=== PATIENT | female | born 1960 | race Caucasian/White ===

== ENCOUNTER → 2018-01-28 10:27 | Outpatient (REF) | payer MEDICAID, SELFPAY | LOC: LBN 10:27 | PROVIDERS: PCP Family Medicine; Visit Provider Family Medicine | DX: T81.4XXA Infection following a procedure, initial encounter (principal); M65.331 Trigger finger, right middle finger | CPT/HCPCS: 87077; 87070; 87186; 87205 ==

== ENCOUNTER 2018-02-28 11:09 | Day surgery (SDC) | payer MEDICAID, SELFPAY ==
--- NOTE | 2018-02-28 06:59 | W.COLOREPORT ---
Date of service: 02/28/18 Colonoscopy Report Date of procedure: 02/28/18 Pre-op diagnosis general: screening for colon cancer Post-op diagnosis procedure note: other (rectal polyp) Procedure: Colonoscopy with polypectomy by cold forceps Surgeon: Anum Franco Anesthesia proc note operative: MAC (Kristal Cuevas CRNA) Estimated blood loss (mL): 3 Pathology: other (rectal polyp) Complications: None Disposition: same day Indications: Mrs. Gamez is a 58-year-old female who was seen in the office for a screening colonoscopy. Risks benefits and complications were reviewed with her and she wished to proceed no guarantees were given or implied. Prep: Miralax/Dulcolax Procedure Start Time: 13:55 Procedure End Time: 14:31 Retraction Time: 17 minutes Findings: One rectal polyp, most likely benign Prep was suboptimal with lots of debris Procedure Description: After informed consent was obtained the patient was taken to the procedure room and placed in a left decubitous position. Monitors were applied and a time out was done. The patients name, date of , procedure, allergies to medications and metal in their body was reviewed. The patient was then sedated. Once sedated and comfortable a rectal exam was done. External exam was normal. Internal exam revealed a normal sphincter tone and no palpable masses. The scope was then introduced and retroflexed. No internal hemorrhoids were identified. The scope was then straightened and advanced to the cecum without difficulty. The TI and appendiceal orifice were identified. The prep was suboptimal. Over 2 L of fluid was used to irrigate the colon ramires for better visualization. The scope was then slowly retracted over 17 minutes back into the rectum. In the rectum one polyp was removed. The scope was removed and the patient was woken up and taken back to Same day surgery in stable condition. The patient tolerated the procedure well and there were no immediate complications. Follow up: The patient should follow up in 10 years unless they develop changes in bowel habits or other new gastrointestinal complaints.
--- NOTE | 2018-02-28 07:02 | PDOC.DSDIS_ITS ---
Discharge Plan Disposition Patient Disposition: HOME Condition: Fair Discharge Details Reason For Visit: Screening for colon cancer Attending Provider: Anum Franco Primary Care Provider: Tania Shahid Home Meds and New Rx's Prescriptions: Continue albuterol sulfate [Ventolin HFA] 8 GM HFA aerosol inhaler 2 puff Inhalation Q6H PRN Qty: 2 RF: 4 rosuvastatin [Crestor] 10 MG tablet 10 mg PO DAILY Qty: 90 RF: 4 cholecalciferol (vitamin D3) [Vitamin D3] 2,000 UNIT capsule 2,000 unit PO DAILY Qty: 90 RF: 3 calcium carbonate 600 MG tablet 600 mg PO BID Qty: 180 RF: 3 levothyroxine 25 MCG tablet 12.5 mcg PO DAILY Qty: 90 RF: 1 venlafaxine 75 MG tablet 75 mg PO BID Qty: 180 RF: 3 meloxicam [Mobic] 15 MG tablet 15 mg PO DAILY PRNQty: 30 RF: 0 clonazepam [Klonopin] 0.5 MG tablet 1 tab PO BID PRN Qty: 25 RF: 1 loratadine 10 MG tablet 10 mg PO DAILY Qty: 30 RF: 1 oxybutynin chloride 5 MG tablet extended release 24hr 5 mg PO DAILY Qty: 90 RF: 3 Discontinued polyethylene glycol 3350 17 gram powder in packet 255 g PO DAILY Qty: 15 RF: 0 bisacodyl [Dulcolax (bisacodyl)] 5 mg tablet,delayed release (DR/EC) 5 mg PO ONCE Qty: 4 RF: 0 Discharge Instructions Instructions: Colonoscopy (DC), Colorectal Polyps (DC) Additional Instructions: Findings: 1 polyp- most likely benign Follow up: depends on pathology New Medications: none Please call if you develop: Fevers >101.5 Nausea or Vomiting Abdominal pain that is not transient 1. Because there will be medication in your system for the next 24 hours, you may feel a little sleepy. Your coordination will be affected. Therefore: a. Do not drive or operate dangerous equipment for 24 hours. b. Do not drink alcohol beverages for 24 hours (not even beer). c. Plan to go home and rest for the day. 2. Generally there are no restrictions on your activity after a day or so has gone by, but you may feel a bit fatigued for a few days. 3 After you arrive home you may have a light meal and return to a normal diet as you can tolerate it without feeling sick to your stomach. 4. After surgery, you may feel pain or discomfort. This should be only transient , but if it persists please contact your doctor. 5. If there are any questions regarding the findings of your procedure, please feel free to contact your doctor. 6. If you are unable to contact your doctor with a problem, contact the hospital at [phone]. 7. Continue all your regular medications unless directed otherwise. I understand the above instructions and have no questions. Signature of Patient or Responsible Adult Escort Date/Time Name of Responsible Adult Escort Signature of Nurse Date/Time Activity:: Activity as Tolerated Diet:: regular Discharge Orders Discharge Orders: Discharge Order (Routine); Ordered 02/28/18 Ordered By: Anum Franco
[2018-02-28 11:20] VITALS: BP 138/74; PULSE 86; RESP 16; TEMP 37.2; O2SAT 96
[2018-02-28] MEDS: Lactated Ringers 1,000 ML 80 ML IV (11:54)
--- NOTE | 2018-02-28 13:56 | BOWEL_PTH ---
PATIENT: Alena Gamez LOC: [facility] U#:[id number] AGE/SX: 58/F ROOM: RE02/28/[address]: Anum Franco MD : [id number] BED: DIS: 02/28/2018 SPEC #: [id number] RECD: 02/28/18 17:34 STATUS: JOHNNA RERandy #: [id number] LEONIDAS: 02/28/18 13:[address]: Anum Franco DEPT: Surgical Specimen RECD BY: La Lopez ENTERED: 02/28/18 17:35 SP TYPE: Bowel OTHR DR: Tania Shahid MD Tissues: 1 - BIOPSY BOWEL Procedures: GROSS AND MICRO LEVEL 4 Comments: [id number]
[2018-02-28 15:08] VITALS: BP 121/78; PULSE 71; RESP 14; TEMP 36.8; O2SAT 100
== END 2018-02-28 13:41 | disposition home or self-care (01) ==
LOC: SUR 11:09
PROVIDERS: PCP Family Medicine; Visit Provider Surgery
PROC: 0DJD8ZZ Inspection of Lower Intestinal Tract, Via Natural or Artificial Opening Endoscopic (ICD-10-PCS; CPT 45378; principal; 2018-02-28 14:00)
DX: Z12.11 Encounter for screening for malignant neoplasm of colon (principal); K62.1 Rectal polyp
CPT/HCPCS: 45380; 88305

== ENCOUNTER 2018-05-16 11:33 | Outpatient (CLI) | payer MEDICAID, SELFPAY | END 2018-05-16 11:53 | PROVIDERS: PCP Family Medicine; Visit Provider Physician Assistant | DX: R69 Illness, unspecified (principal) | CPT/HCPCS: 73502 ==

== ENCOUNTER 2018-10-07 10:42 | Inpatient (IN) | payer MEDICAID, SELFPAY ==
[2018-10-07] VITALS (38 sets, daily range): BP systolic 102–157; BP diastolic 56–92; PULSE 105–125; RESP 12–95; TEMP 36.4–37.7; O2SAT 88–99
--- NOTE | 2018-10-07 11:02 | DI.CT_ITS ---
SYMPTOMS/DIAGNOSIS: SLURRED SPEECH, ? ACUTE CVA NONCONTRAST HEAD CT: There are no prior comparison exams. No intracranial hemorrhage, mass or infarct is seen. The ventricles are normal in size. There is no visible atrophy. There are no abnormal areas of low attenuation in the white matter. No skull fracture is seen. There is mild mucosal thickening of the ethmoid sinuses. IMPRESSION: Negative head CT.
--- NOTE | 2018-10-07 11:07 | DI.RAD_ITS ---
SYMPTOMS/DIAGNOSIS: SLURRED SPEECH, ? ACUTE DISEASE, S/P LT KNEE REPLACEMENT, ASSESS FOR OSTEO LEFT KNEE: There is gauze over the anterior knee. Comparison is made with [id number]. The patient is status post left knee prosthesis since the previous exam. No fracture or hemarthrosis is seen. There is mild spurring at the quadriceps insertion on the patella. IMPRESSION: Anterior soft tissue swelling and soft tissue wound. No acute bony abnormality. PA AND LATERAL CHEST: There are no prior comparison exams. The heart size is within normal limits for projection. The lungs appear clear. No infiltrate, effusion or pulmonary edema is seen. There are no thoracic compression fractures or evidence of pneumothorax. IMPRESSION: No acute abnormality.
--- NOTE | 2018-10-07 11:09 | ED.GENADUL_ITS ---
Discharge Plan Disposition Patient Disposition: [facility] INPATIENT Condition: Stable Discharge Details Chief Complaint: CVA/TIA Clinical Impression: Hyponatremia, Vomiting, Status post left knee replacement Admit Date/Time: 10/07/18 16:05 Admit Provider: Dangelo Benitez Attending Provider: Dangelo Benitez Primary Care Provider: Tania Shahid ED Provider: Dinorah Allen Discharge Data Discharge Date/Time-TO BE ENTERED AT DEPARTURE: 10/07/18 16:05 Medical Decision Making 58-year-old female with a history of anxiety, depression, hypothyroidism, thyroidectomy and 3 days status post left total knee replacement who presents with vomiting and slurred speech since last night as well as headache this morning. Initial call this morning was for possible stroke alert. Upon EMS arrival, determined that patient has been taking oxycodone and gabapentin for the past few days status post her knee replacement. Stroke score is 0 per EMS. Heart rate tachycardic, remainder vitals within normal limits. Patient appears nontoxic. She is oriented x3 answering all questions and no focal deficits. She has dry mucous membranes. There is mild erythema noted to the medial aspect of the left knee which she states she has had for the past few days. This area is warm to touch but there is no induration or fluctuance. Differential diagnosis includes dehydration, medication overdose, electrolyte abnormality, arrhythmia, CVA. Will place an IV, bolus IV fluids, labs, urinalysis, chest x-ray and CT head. 1200 --labs and imaging reviewed. Normal white blood cell count. Sodium 125. Chloride 85. Troponin negative. Negative CT head, chest x-ray and left knee. EKG notes a rate of 123 and sinus tachycardia. There is less than [address] depression in V4 through V6 but no acute ST elevation. Patient admits to some nausea and flushed feeling in head. Suspect her hyponatremia due to the increased fluid intake. It is possible that her xerostomia is caused by oxycodone and gabapentin increasing her thirst drive and thus causing her hyponatremia. We will give a dose of Zofran. She is complaining of left knee pain and will give a dose of morphine. Will admit for free water restriction and normal saline infusion. Discussed with hospitalist and as patient is 3 days status post knee replacement, would like a discussion with [facility] orthopedics for further discussion of operative procedure and any possible complications. 1345 --discussed with [facility] orthopedics -there were no postoperative complications or any other events that appeared to have contributed to patient's present complaint. No acute recommendations at this time. Patient can stay here at [facility] for admission. 1410 --nurse states that patient ambulates to the bathroom and when she returned her heart rate was 120s, and she developed worsening heartburn. Patient states she has had heartburn for years states it has been worse over the past few days. She was also noted to have hypoxia, 88% on RA and placed 4L NC. Repeat EKG notes acute change. Will check a stat troponin. While patient is post surgery and tachycardic, she denies any chest pain or shortness of breath. Will check a d dimer. 1450 -- d/w Dr. Benitez - accepts pt for admission. 1540 -- D dimer elevated - will send for CT chest. 1700 -- ct chest negative for PE but does question possible pneumonia. Patient now on the floor and being managed by hospitalist team. Medical Records Medical records reviewed: Yes I reviewed the patient's medical records. Lab Data Lab results reviewed: Yes I reviewed the patient's lab results. ECG Data Attestation: I personally reviewed and interpreted this ECG (s) as follows: Interpretation: 1120 --rate of 123, sinus, less than [address] depression in V4 through V6. No acute ST elevation. QTc 438. QRS 90. 1414 --rate of 111, sinus tachycardia, less than [address] depression noted in V4 through V6. No acute ST elevation. QTc 413. QRS 88. HPI General Mode of arrival: ambulatory . Date/Time Provider Initiated Documentation: 10/07/18 10:48 . Limitations to Documentation: no limitations . Information obtained by: patient . HPI Narrative: Patient is a 58-year-old female with a history of anxiety, depression, hyperlipidemia, hypothyroidism who is 3 days status post a left total knee replacement at [facility] who presents with vomiting 5 times since yesterday, and slurred speech and frontal headache this morning. Patient has been taking 2 tabs of oxycodone every 4 hours for the past few days. Her last dose of oxycodone was last night. She also has been taking gabapentin for her left knee pain. She does also admit to intermittent heartburn over the past few days. She also admits to significant dry mouth and states she has been drinking lots of water. She denies dizziness, chest pain, shortness of breath, abdominal pain, neck pain, extremity weakness or numbness. She states she called the nurse at [facility] regarding her symptoms this morning and the nurse found that patient had slurred speech on the phone and was instructed to called EMS for possible stroke considering her headache and slurred speech. Related Data Home Medications Medication Instructions Recorded Confirmed clonazepam [Klonopin] 1 tab PO BID PRN #25 tab-cap 12/13/17 10/07/18 loratadine 10 mg PO DAILY #30 tab-cap 12/13/17 10/07/18 meloxicam [Mobic] 15 mg PO DAILY PRN #30 tab-cap 12/13/17 10/07/18 venlafaxine 75 mg PO BID #180 tab-cap 12/13/17 10/07/18 oxybutynin chloride 5 mg PO DAILY #90 tab-cap 01/12/18 10/07/18 calcium carbonate 600 mg calcium 600 mg PO BID #180 tab-cap 03/16/18 10/07/18 (1,500 mg) tablet cholecalciferol (vitamin D3) 2,000 2,000 unit PO DAILY #90 tab-cap 03/16/18 10/07/18 unit capsule rosuvastatin 10 mg tablet 10 mg PO DAILY #90 tab-cap 05/28/18 10/07/18 levothyroxine 25 mcg tablet 12.5 mcg PO DAILY #90 tab-cap 07/11/18 10/07/18 aspirin 81 mg PO DAILY 10/07/18 10/07/18 Previous Rx's Medication Instructions Recorded clonazepam [Klonopin] 1 tab PO BID PRN #25 tab-cap 12/13/17 loratadine 10 mg PO DAILY #30 tab-cap 12/13/17 venlafaxine 75 mg PO BID #180 tab-cap 12/13/17 oxybutynin chloride 5 mg PO DAILY #90 tab-cap 01/12/18 calcium carbonate 600 mg calcium 600 mg PO BID #180 tab-cap 03/16/18 (1,500 mg) tablet cholecalciferol (vitamin D3) 2,000 2,000 unit PO DAILY #90 tab-cap 03/16/18 unit capsule rosuvastatin 10 mg tablet 10 mg PO DAILY #90 tab-cap 05/28/18 levothyroxine 25 mcg tablet 12.5 mcg PO DAILY #90 tab-cap 07/11/18 Allergies Allergy/AdvReac Type Severity Reaction Status Date / Time atorvastatin AdvReac Intermediate MYALGIAS Unverified 10/07/18 10:57 pravastatin AdvReac Intermediate MYALGIAS Unverified 10/07/18 10:57 simvastatin AdvReac Intermediate MYALGIAS Unverified 10/07/18 10:57 General Stated Complaint: CVA/TIA JAZLYN: 3 Review of Systems Review of Systems All systems reviewed & are unremarkable except as noted in HPI and below Constitutional Reports as per HPI, Denies chills, Denies fever(s) and Reports headache(s) Eyes Denies blurry vision ENT Denies dizziness, Reports headache(s), Denies sore throat and Denies throat swelling Cardiovascular Denies chest pain and Denies dyspnea Respiratory Denies cough and Denies dyspnea Gastrointestinal Denies abdominal pain, Denies diarrhea and Reports vomiting Genitourinary Denies hematuria and Denies dysuria Musculoskeletal Denies back pain and Denies numbness Integumentary/Breasts Denies lesions and Denies rash Neurologic Denies dizziness, Reports headache(s), Denies focal weakness and Denies numbness Allergic/Immunologic Denies throat swelling [facility] Medical History Allergic rhinitis (Acute) Hyperlipidemia (Acute) Osteoarthritis of knees, bilateral (Acute) Anxiety (Chronic) Depression (Chronic) Hypothyroidism (Chronic) Surgical History S/P total knee arthroplasty (Acute) Arthroscopy (~08/2014) Colonoscopy - IV Sedation (01/13/13) Thyroid Trigger Finger release Family History Mother Essential hypertension Hyperlipidemia Neoplasm Stroke Father Diabetes Essential hypertension Heart disease Hyperlipidemia Neoplasm Grandfather Heart disease Grandfather No problems noted. Grandmother Diabetes Hyperlipidemia Grandmother No problems noted. Brother No problems noted. Son No problems noted. Daughter No problems noted. Daughter No problems noted. 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 [employer] Pets and animals: No What type of physical activity do you participate in: none Ericka/Faith: Druze Special ericka needs: No Exam Const General: cooperative and healthy appearing Orientation: alert and awake HENNC Head: normal to inspection Ears: hearing grossly normal bilaterally, external ears normal and TM's normal bilaterally General nose exam: external nose normal Face and sinus: normal facial exam Mouth: oral mucosae normal Teeth and gingiva: dentition normal Throat: posterior oropharynx normal Eyes General: appearance normal, both eyes and all related structures Eyelids: eyelids normal Pupils: PERRL EOM: EOM intact bilaterally Neck Neck: normal visual inspection Lymphatic: no lymphadenopathy noted Chest Chest: normal inspection of the chest Resp Effort & Inspection: normal respiratory effort and able to speak in complete sentences Auscultation: clear to auscultation bilaterally Cardio Rate: regular rate Rhythm: regular rhythm GI Inspection: normal to inspection Palpation: soft, not firm, no guarding, no hepatosplenomegaly, no masses and nontender Auscultation: normal bowel sounds Back/Spine/Pelvis Thoracic/Lumbar Spine: thoracic and lumbar spine normal to inspection Skin General skin exam: no rashes or lesions noted Neuro General: alert and awake Cranial Nerves: CN's II-XI intact bilaterally Cognition: normal cognition Speech: speech normal Gait: normal gait Motor: muscle tone normal throughout and strength 5/5 throughout Sensory Exam: no sensory deficits noted Extrem General: normal to inspection, full ROM and normal capillary refill Psych Appearance: grossly normal Mental Status: mental status grossly normal Speech and Movement: speech and movement normal Affect: normal affect Thought Process: normal Course Vital Signs Temperature 97.5 F L 10/07/18 10:50 Pulse 115 H 10/07/18 10:50 Respiratory Rate 95 H 10/07/18 10:50 Blood Pressure 139/89 10/07/18 10:50 Pulse Oximetry 94 L 10/07/18 10:50 Temperature 97.5 F L 10/07/18 10:50 Temperature Source Skin 10/07/18 10:50 Pulse 115 H 10/07/18 10:50 Respiratory Rate 95 H 10/07/18 10:50 Blood Pressure 139/89 10/07/18 10:50 Pulse Oximetry 94 L 10/07/18 10:50 Oxygen Delivery Method Room Air 10/07/18 10:50 Oxygen Flow Rate 0 10/07/18 10:50
[2018-10-07 11:18] LABS: Abs Immature Grans 0.01 k/cumm (0.0-0.09); Absolute Basophil Count 0.03 k/cumm (0.0-0.2); Absolute Eosinophil Count 0.23 k/cumm (0.0-0.7); Absolute Lymphocyte Count 0.48 k/cumm (1.2-3.4); Absolute Monocyte Count 0.44 k/cumm (0.11-0.7); Absolute Neutrophil Count 5.81 k/cumm (1.2-6.7); Basophils % 0.4; Eosinophils % 3.3; HCT 32.8 % (36.0-46.0); HGB 11.4 g/dL (12.0-15.5); Immature Grans % 0.1; Lymphocytes % 6.9; Mean Corp. HGB Concentration 34.8 g/dL (32.0-36.0); Mean Corpuscular Hemoglobin 30.9 pg (27.0-33.0); Mean Corpuscular Volume 88.9 fL (80-95); Mean Platelet Volume 9.4 fL (8.0-11.0); Monocytes % 6.3; Platelet Count 248 x1000/uL (130-400); RBC 3.69 m/cumm (4.00-5.20); RBC Distribution Width 12.1 % (11.7-14.6)
[2018-10-07 11:37] LABS: ALT 32 U/L (12-78); AST 29 U/L (15-37); Albumin 3.3 g/dL (3.4-5.0); Alkaline Phosphatase 77 U/L (46-116); BUN 12 mg/dL (7-18); Bilirubin, Total 1.2 mg/dL (0.2-1.0); CREATININE 0.64 mg/dL (0.55-1.02); Calcium 9.4 mg/dL (8.5-10.1); Chloride 85 mmol/L (98-107); Glucose 129 mg/dL (70-100); Magnesium 1.4 mg/dL (1.8-2.4); Potassium 4.2 mmol/L (3.5-5.1); Sodium 125 mmol/L (136-145); Total Protein 6.8 g/dL (6.4-8.2)
[2018-10-07 11:40] LABS: Troponin I < 0.02 ng/mL (0.00-0.06)
[2018-10-07 12:13] LABS: Bilirubin Negative (Negative); Blood Trace-intact (Negative); Clarity Clear; Glucose Negative (Negative); Ketones Negative (Negative); Leukocyte Esterase Negative (Negative); Nitrite Negative (Negative); Specific Gravity 1.015 (1.005-1.025); Urobilinogen 0.2 EU/dL (Up TO 0.2); pH 7.5 (5-8)
[2018-10-07] MEDS: Ondansetron 4 MG/2 ML VIAL (12:15)
[2018-10-07 12:23] LABS: Bacteria Rare HPF (Negative); C & S Indicated? No; Casts Negative LPF (Negative); Crystals Negative HPF (Negative); Epithelial Cells Moderate HPF (Negative); Mucus Trace (Negative); Other Cells Negative (Negative); WBC 0-2 HPF (0-5)
[2018-10-07] MEDS: Normal Saline 1,000 ML 1000 ML IV (12:30)
[2018-10-07] MEDS: FAMOTIDINE 20 MG/50 ML BAG 100 MG (13:14)
[2018-10-07] MEDS: Normal Saline 1,000 ML 125 ML IV ×2 (14:42→21:54)
[2018-10-07 14:49] LABS: Troponin I < 0.02 ng/mL (0.00-0.06)
[2018-10-07 15:41] LABS: D-Dimer 2679 ng/mlFEU (<500)
--- NOTE | 2018-10-07 16:18 | W.PM.HP.N ---
Date of service: 10/07/18 Time of Service: 16:19 Assessment and Plan (1) Hyponatremia: Current visit: Yes Status: Acute In the setting of recent left total [place] [facility] [place] with gabapentin and oxycodone for pain control, with subsequent dry mouth and increased free water intake and nausea and vomiting. Hyponatremia with low chloride. Sodium 125 on admission, continue IV normal saline. Repeat sodium pending. Continue IV fluids with normal saline overnight and continue to monitor. (2) S/P total knee arthroplasty: Current visit: Yes Status: Acute Status post left total knee arthroplasty at [facility] on 10/04/2018, same day surgery. She was discharged home to take gabapentin 600 mg at at bedtime x2 days then decrease to 300 mg at at bedtime x30 days and oxycodone 5 to 10 mg every 4 hours for pain. She reported taking 10 mg of oxycodone with most doses, she did not eat with the oxycodone. She went on to have nausea and vomiting. Hold gabapentin and oxycodone for now. Acetaminophen and tramadol for mild to moderate pain, morphine for moderate to severe pain, Toradol as needed for now. Left lower extremity edematous with postsurgical changes and decreased activity at home related to recent surgery, ultrasound left lower extremity to rule out DVT. (3) Nausea & vomiting: Current visit: Yes Status: Acute Possibly related to taking pain medication on an empty stomach. Also in the setting of hyponatremia. Continue IV normal saline and Zofran as needed. (4) Tachycardia: Current visit: Yes Status: Acute Concern for PE in the setting of recent surgery and decreased activity, d-dimer elevated at 2679. CTA chest pending, left lower extremity ultrasound pending to rule out DVT. (5) Acid reflux: Current visit: Yes Status: Chronic Report of epigastric discomfort in the emergency department. EKG x2 without significant changes. Troponins less than 0.02?2. Denies hematemesis, no bowel movement x4 days. Twice daily IV Protonix. Hold meloxicam. (6) Hypothyroidism: Current visit: No Status: Acute TSH historically within normal limits. Continue home dose of levothyroxine at 12.5 mcg daily. TSH with a.m. labs. (7) Depressive disorder: Current visit: No Status: Acute Continue Effexor 75 mg p.o. twice daily. (8) Anxiety: Current visit: No Status: Acute Continue home Klonopin as needed. (9) Allergic rhinitis: Current visit: No Status: Acute Hold home loratadine for now. Continue as indicated. (10) Hypomagnesemia: Current visit: Yes Status: Acute Replete and monitor. (11) Constipation: Current visit: Yes Status: Acute No bowel movement in 4 days in the setting of recent surgery with opioid pain medication. Begin bowel regimen. Intensify if no bowel movement. (12) DVT prophylaxis: Current visit: Yes Status: Acute Subcutaneous Lovenox. May need therapeutic Lovenox depending on results of CTA chest. (13) Discharge planning issues: Current visit: Yes Status: Acute She is a full code. We will place PT consult as she had a left total knee arthroplasty 3 days ago. This case was discussed with Dr. Benitez who is in agreement. History of Present Illness Chief Complaint: Vomiting, slurred speech, PEREZ, L knee pain. Narrative: Alena Gamez is a very pleasant 58-year-old female with a past medical history significant for hypothyroidism, hyperlipidemia, anxiety and depression, and recent left knee replacement 3 days ago at [facility]. She presented to the emergency room today after having multiple vomiting episodes at home as well as a headache and slurred speech. In the emergency department, she was noted to be in sinus tachycardia on EKG, note was made of less than [address] depression in V4 through V6 but no acute ST elevation. Her troponin was less than 0.02 x2. She denied chest pain/pressure, palpitations. She had a chest x-ray that was negative, left knee x-ray negative, she had a head CT that was negative. Her labs were notable for hyponatremia with a sodium of 125, her chloride was also low at 85, magnesium low at 1.4, her hemoglobin was low at 11.4 and her hematocrit was 32.8. She had no leukocytosis. Her d-dimer was elevated at 2679, she was referred for a CTA chest prior to transfer to the med/surg floor. An order was placed for LLE ultrasound as well. When she was seen in the emergency department, she was no longer experiencing nausea or vomiting. She reported taking gabapentin and oxycodone on an empty stomach at home. She was taking 10 mg of oxycodone per dose. She reported that her nausea and vomiting began 1 day ago, she denied hematemesis, she vomited approximately 3 times prior to her presentation to the emergency department today. She also reported constipation, she has not had a bowel movement in 4 days. As above, she denied chest pain/pressure, palpitations, she denies shortness of breath, coughing and wheezing at the present time. She was no longer experiencing speech difficulty. She reported that her left lower extremity has had significant edema, erythema and ecchymosis. She has been getting around her house okay using a walker, she has been more sedentary than usual due to her recent left knee surgery. Once her CTA chest and left lower extremity ultrasound are complete, she will be admitted to the [facility] floor for further evaluation and management. Review of Systems Review of Systems All systems reviewed & are unremarkable except as noted in HPI and below PFSH Medical History Allergic rhinitis (Acute) Hyperlipidemia (Acute) Osteoarthritis of knees, bilateral (Acute) Anxiety (Chronic) Depression (Chronic) Hypothyroidism (Chronic) Surgical History S/P total knee arthroplasty (Acute) Arthroscopy (~08/2014) Colonoscopy - IV Sedation (01/13/13) Thyroid Trigger Finger release Family History Mother Essential hypertension Hyperlipidemia Neoplasm Stroke Father Diabetes Essential hypertension Heart disease Hyperlipidemia Neoplasm Grandfather Heart disease Grandfather No problems noted. Grandmother Diabetes Hyperlipidemia Grandmother No problems noted. Brother No problems noted. Son No problems noted. Daughter No problems noted. Daughter No problems noted. 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 [employer] Pets and animals: No What type of physical activity do you participate in: none Ericka/Gnosticist: Scientologist Special ericka needs: No Meds Home Medications Medication Instructions Recorded Confirmed Type clonazepam [Klonopin] 1 tab PO BID PRN #25 tab-cap 12/13/17 10/07/18 Rx loratadine 10 mg PO DAILY #30 tab-cap 12/13/17 10/07/18 Rx meloxicam [Mobic] 15 mg PO DAILY PRN #30 tab-cap 12/13/17 10/07/18 History venlafaxine 75 mg PO BID #180 tab-cap 12/13/17 10/07/18 Rx oxybutynin chloride 5 mg PO DAILY #90 tab-cap 01/12/18 10/07/18 Rx calcium carbonate 600 mg calcium 600 mg PO BID #180 tab-cap 03/16/18 10/07/18 Rx (1,500 mg) tablet cholecalciferol (vitamin D3) 2,000 2,000 unit PO DAILY #90 tab-cap 03/16/18 10/07/18 Rx unit capsule rosuvastatin 10 mg tablet 10 mg PO DAILY #90 tab-cap 05/28/18 10/07/18 Rx levothyroxine 25 mcg tablet 12.5 mcg PO DAILY #90 tab-cap 07/11/18 10/07/18 Rx aspirin 81 mg PO DAILY 10/07/18 10/07/18 History Allergies Allergy/AdvReac Type Severity Reaction Status Date / Time atorvastatin AdvReac Intermediate MYALGIAS Unverified 10/07/18 10:57 pravastatin AdvReac Intermediate MYALGIAS Unverified 10/07/18 10:57 simvastatin AdvReac Intermediate MYALGIAS Unverified 10/07/18 10:57 Exam Narrative Exam Narrative: General: Awake and alert, laying in stretcher with head of bed elevated, in no acute distress. Laughing and conversing with family members. HEENT: Normocephalic, atraumatic, pupils equal round, extraocular movements intact, mucous membranes slightly dry. Neck: Supple, no JVD. Cardiovascular: Heart has regular rate, tachycardic, no murmur appreciated. Respiratory: Respirations even and unlabored, lung sounds clear to auscultation throughout. Abdomen: Normoactive bowel sounds x4 quadrants, soft, nontender on palpation, no masses appreciated. Extremities: Left lower extremity with significant edema along entire leg, erythema and ecchymosis to left medial knee and thigh. Area surrounding the left knee warm to touch. Left calf edematous, nontender on palpation, no clonus. Pedal pulses palpable bilaterally. Neurological: No focal deficits. Results Labs : 10/07/18 11:05 10/07/18 11:05 Laboratory Results - last 24 hr 10/07/18 10/07/18 10/07/18 11:05 11:05 12:00 WBC 7.00 RBC 3.69 L Hgb 11.4 L Hct 32.8 L MCV 88.9 MCH 30.9 MCHC 34.8 RDW 12.1 Plt Count 248 MPV 9.4 Immature Gran % 0.1 Neutrophils % 83.0 Lymphocytes % 6.9 Monocytes % 6.3 Eosinophils % 3.3 Basophils % 0.4 Absolute Neutrophils 5.81 Absolute Lymphocytes 0.48 L Absolute Monocytes 0.44 Absolute Eosinophils 0.23 Absolute Basophils 0.03 D-Dimer Sodium 125 L Potassium 4.2 Chloride 85 L Carbon Dioxide 33.0 H Anion Gap 7.0 BUN 12 Creatinine 0.64 Estimated GFR/1.73 m2 >= 60.00 Glucose 129 H Calcium 9.4 Magnesium 1.4 L Total Bilirubin 1.2 H AST 29 ALT 32 Alkaline Phosphatase 77 Troponin I < 0.02 Total Protein 6.8 Albumin 3.3 L Urine Color Yellow Urine Clarity Clear Urine pH 7.5 Ur Specific [place] 1.015 Urine Protein Trace H Urine Ketones Negative Urine Blood Trace-intact H Urine Nitrite Negative Urine Bilirubin Negative Urine Urobilinogen 0.2 Ur Leukocyte Esterase Negative Urine RBC 3-5 H Urine WBC 0-2 Ur Epithelial Cells Moderate Urine Crystals Negative Urine Bacteria Rare Urine Casts Negative Urine Mucus Trace Urine Other Negative Ur Culture Indicated? No Urine Glucose Negative 10/07/18 10/07/18 14:25 14:25 WBC RBC Hgb Hct MCV MCH MCHC RDW Plt Count MPV Immature Gran % Neutrophils % Lymphocytes % Monocytes % Eosinophils % Basophils % Absolute Neutrophils Absolute Lymphocytes Absolute Monocytes Absolute Eosinophils Absolute Basophils D-Dimer 2679 H Sodium Potassium Chloride Carbon Dioxide Anion Gap BUN Creatinine Estimated GFR/1.73 m2 Glucose Calcium Magnesium Total Bilirubin AST ALT Alkaline Phosphatase Troponin I < 0.02 Total Protein Albumin Urine Color Urine Clarity Urine pH Ur Specific [place] Urine Protein Urine Ketones Urine Blood Urine Nitrite Urine Bilirubin Urine Urobilinogen Ur Leukocyte Esterase Urine RBC Urine WBC Ur Epithelial Cells Urine Crystals Urine Bacteria Urine Casts Urine Mucus Urine Other Ur Culture Indicated? Urine Glucose Last Vital Signs Temp 36.4 C L 10/07/18 10:50 Pulse 112 H 10/07/18 15:31 Resp 18 10/07/18 15:31 BP 148/76 H 10/07/18 15:31 Pulse Ox 98 10/07/18 15:45
--- NOTE | 2018-10-07 16:23 | HPE_ITS ---
Date of service: 10/07/18 Time of Service: 16:19 Assessment and Plan (1) Hyponatremia: Current visit: Yes Status: Acute In the setting of recent left total knee replacement (3 days ago at [facility] [place] with gabapentin and oxycodone for pain control, with subsequent dry mouth and increased free water intake and nausea and vomiting. Hyponatremia with low chloride. Sodium 125 on admission, continue IV normal saline. Repeat sodium pending. Continue IV fluids with normal saline overnight and continue to monitor. (2) S/P total knee arthroplasty: Current visit: Yes Status: Acute Status post left total knee arthroplasty at [facility] on 10/04/2018, same day surgery. She was discharged home to take gabapentin 600 mg at at bedtime x2 days then decrease to 300 mg at at bedtime x30 days and oxycodone 5 to 10 mg every 4 hours for pain. She reported taking 10 mg of oxycodone with most doses, she did not eat with the oxycodone. She went on to have nausea and vomiting. Hold gabapentin and oxycodone for now. Acetaminophen and tramadol for mild to moderate pain, morphine for moderate to severe pain, Toradol as needed for now. Left lower extremity edematous with postsurgical changes and decreased activity at home related to recent surgery, ultrasound left lower extremity to rule out DVT. (3) Nausea & vomiting: Current visit: Yes Status: Acute Possibly related to taking pain medication on an empty stomach. Also in the setting of hyponatremia. Continue IV normal saline and Zofran as needed. (4) Tachycardia: Current visit: Yes Status: Acute Concern for PE in the setting of recent surgery and decreased activity, d- dimer elevated at 2679. CTA chest pending, left lower extremity ultrasound pending to rule out DVT. (5) Acid reflux: Current visit: Yes Status: Chronic Report of epigastric discomfort in the emergency department. EKG x2 without significant changes. Troponins less than 0.02?2. Denies hematemesis, no bowel movement x4 days. Twice daily IV Protonix. Hold meloxicam. (6) Hypothyroidism: Current visit: No Status: Acute TSH historically within normal limits. Continue home dose of levothyroxine at 12.5 mcg daily. TSH with a.m. labs. (7) Depressive disorder: Current visit: No Status: Acute Continue Effexor 75 mg p.o. twice daily. (8) Anxiety: Current visit: No Status: Acute Continue home Klonopin as needed. (9) Allergic rhinitis: Current visit: No Status: Acute Hold home loratadine for now. Continue as indicated. (10) Hypomagnesemia: Current visit: Yes Status: Acute Replete and monitor. (11) Constipation: Current visit: Yes Status: Acute No bowel movement in 4 days in the setting of recent surgery with opioid pain medication. Begin bowel regimen. Intensify if no bowel movement. (12) DVT prophylaxis: Current visit: Yes Status: Acute Subcutaneous Lovenox. May need therapeutic Lovenox depending on results of CTA chest. (13) Discharge planning issues: Current visit: Yes Status: Acute She is a full code. We will place PT consult as she had a left total knee arthroplasty 3 days ago. This case was discussed with Dr. Benitez who is in agreement. History of Present Illness Chief Complaint: Vomiting, slurred speech, PEREZ, L knee pain. Narrative: Alena Gamez is a very pleasant 58-year-old female with a past medical history significant for hypothyroidism, hyperlipidemia, anxiety and depression, and recent left knee replacement 3 days ago at [facility]. She presented to the emergency room today after having multiple vomiting episodes at home as well as a headache and slurred speech. In the emergency department, she was noted to be in sinus tachycardia on EKG, note was made of less than [address] depression in V4 through V6 but no acute ST elevation. Her troponin was less than 0.02 x2. She denied chest pain/pressure, palpitations. She had a chest x-ray that was negative, left knee x-ray negative, she had a head CT that was negative. Her labs were notable for hyponatremia with a sodium of 125, her chloride was also low at 85, magnesium low at 1.4, her hemoglobin was low at 11.4 and her hematocrit was 32.8. She had no leukocytosis. Her d- dimer was elevated at 2679, she was referred for a CTA chest prior to transfer to the med/surg floor. An order was placed for LLE ultrasound as well. When she was seen in the emergency department, she was no longer experiencing nausea or vomiting. She reported taking gabapentin and oxycodone on an empty stomach at home. She was taking 10 mg of oxycodone per dose. She reported that her nausea and vomiting began 1 day ago, she denied hematemesis, she vomited approximately 3 times prior to her presentation to the emergency department today. She also reported constipation, she has not had a bowel movement in 4 days. As above, she denied chest pain/pressure, palpitations, she denies shortness of breath, coughing and wheezing at the present time. She was no longer experiencing speech difficulty. She reported that her left lower extremity has had significant edema, erythema and ecchymosis. She has been getting around her house okay using a walker, she has been more sedentary than usual due to her recent left knee surgery. Once her CTA chest and left lower extremity ultrasound are complete, she will be admitted to the [facility] floor for further evaluation and management. Review of Systems Review of Systems All systems reviewed & are unremarkable except as noted in HPI and below PFSH Medical History Allergic rhinitis (Acute) Hyperlipidemia (Acute) Osteoarthritis of knees, bilateral (Acute) Anxiety (Chronic) Depression (Chronic) Hypothyroidism (Chronic) Surgical History S/P total knee arthroplasty (Acute) Arthroscopy (~08/2014) Colonoscopy - IV Sedation (01/13/13) Thyroid Trigger Finger release Family History Mother Essential hypertension Hyperlipidemia Neoplasm Stroke Father Diabetes Essential hypertension Heart disease Hyperlipidemia Neoplasm Grandfather Heart disease Grandfather No problems noted. Grandmother Diabetes Hyperlipidemia Grandmother No problems noted. Brother No problems noted. Son No problems noted. Daughter No problems noted. Daughter No problems noted. 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 Pets and animals: No What type of physical activity do you participate in: none Ericka/Yarsanism: Episcopalian Special ericka needs: No Meds Home Medications Medication Instructions Recorded Confirmed Type clonazepam [Klonopin] 1 tab PO BID PRN #25 tab-cap 12/13/17 10/07/18 Rx loratadine 10 mg PO DAILY #30 tab-cap 12/13/17 10/07/18 Rx meloxicam [Mobic] 15 mg PO DAILY PRN #30 tab-cap 12/13/17 10/07/18 History venlafaxine 75 mg PO BID #180 tab-cap 12/13/17 10/07/18 Rx oxybutynin chloride 5 mg PO DAILY #90 tab-cap 01/12/18 10/07/18 Rx calcium carbonate 600 mg calcium 600 mg PO BID #180 tab-cap 03/16/18 10/07/18 Rx (1,500 mg) tablet cholecalciferol (vitamin D3) 2,000 2,000 unit PO DAILY #90 tab-cap 03/16/18 10/07/18 Rx unit capsule rosuvastatin 10 mg tablet 10 mg PO DAILY #90 tab-cap 05/28/18 10/07/18 Rx levothyroxine 25 mcg tablet 12.5 mcg PO DAILY #90 tab-cap 07/11/18 10/07/18 Rx aspirin 81 mg PO DAILY 10/07/18 10/07/18 History Allergies Allergy/AdvReac Type Severity Reaction Status Date / Time atorvastatin AdvReac Intermediate MYALGIAS Unverified 10/07/18 10:57 pravastatin AdvReac Intermediate MYALGIAS Unverified 10/07/18 10:57 simvastatin AdvReac Intermediate MYALGIAS Unverified 10/07/18 10:57 Exam Narrative Exam Narrative: General: Awake and alert, laying in stretcher with head of bed elevated, in no acute distress. Laughing and conversing with family members. HEENT: Normocephalic, atraumatic, pupils equal round, extraocular movements intact, mucous membranes slightly dry. Neck: Supple, no JVD. Cardiovascular: Heart has regular rate, tachycardic, no murmur appreciated. Respiratory: Respirations even and unlabored, lung sounds clear to auscultation throughout. Abdomen: Normoactive bowel sounds x4 quadrants, soft, nontender on palpation, no masses appreciated. Extremities: Left lower extremity with significant edema along entire leg, erythema and ecchymosis to left medial knee and thigh. Area surrounding the left knee warm to touch. Left calf edematous, nontender on palpation, no clonus. Pedal pulses palpable bilaterally. Neurological: No focal deficits. Results Labs : 10/07/18 11:05 10/07/18 11:05 Laboratory Results - last 24 hr 10/07/18 10/07/18 10/07/18 11:05 11:05 12:00 WBC 7.00 RBC 3.69 L Hgb 11.4 L Hct 32.8 L MCV 88.9 MCH 30.9 MCHC 34.8 RDW 12.1 Plt Count 248 MPV 9.4 Immature Gran % 0.1 Neutrophils % 83.0 Lymphocytes % 6.9 Monocytes % 6.3 Eosinophils % 3.3 Basophils % 0.4 Absolute Neutrophils 5.81 Absolute Lymphocytes 0.48 L Absolute Monocytes 0.44 Absolute Eosinophils 0.23 Absolute Basophils 0.03 D-Dimer Sodium 125 L Potassium 4.2 Chloride 85 L Carbon Dioxide 33.0 H Anion Gap 7.0 BUN 12 Creatinine 0.64 Estimated GFR/1.73 m2 >= 60.00 Glucose 129 H Calcium 9.4 Magnesium 1.4 L Total Bilirubin 1.2 H AST 29 ALT 32 Alkaline Phosphatase 77 Troponin I < 0.02 Total Protein 6.8 Albumin 3.3 L Urine Color Yellow Urine Clarity Clear Urine pH 7.5 Ur Specific [place] 1.015 Urine Protein Trace H Urine Ketones Negative Urine Blood Trace-intact H Urine Nitrite Negative Urine Bilirubin Negative Urine Urobilinogen 0.2 Ur Leukocyte Esterase Negative Urine RBC 3-5 H Urine WBC 0-2 Ur Epithelial Cells Moderate Urine Crystals Negative Urine Bacteria Rare Urine Casts Negative Urine Mucus Trace Urine Other Negative Ur Culture Indicated? No Urine Glucose Negative 10/07/18 10/07/18 14:25 14:25 WBC RBC Hgb Hct MCV MCH MCHC RDW Plt Count MPV Immature Gran % Neutrophils % Lymphocytes % Monocytes % Eosinophils % Basophils % Absolute Neutrophils Absolute Lymphocytes Absolute Monocytes Absolute Eosinophils Absolute Basophils D-Dimer 2679 H Sodium Potassium Chloride Carbon Dioxide Anion Gap BUN Creatinine Estimated GFR/1.73 m2 Glucose Calcium Magnesium Total Bilirubin AST ALT Alkaline Phosphatase Troponin I < 0.02 Total Protein Albumin Urine Color Urine Clarity Urine pH Ur Specific [place] Urine Protein Urine Ketones Urine Blood Urine Nitrite Urine Bilirubin Urine Urobilinogen Ur Leukocyte Esterase Urine RBC Urine WBC Ur Epithelial Cells Urine Crystals Urine Bacteria Urine Casts Urine Mucus Urine Other Ur Culture Indicated? Urine Glucose Last Vital Signs Temp 36.4 C L 10/07/18 10:50 Pulse 112 H 10/07/18 15:31 Resp 18 10/07/18 15:31 BP 148/76 H 10/07/18 15:31 Pulse Ox 98 10/07/18 15:45
[2018-10-07] MEDS: Omnipaque 350 MG/ML 100 ML BTL IJ (16:34)
--- NOTE | 2018-10-07 16:36 | DI.CT_ITS ---
SYMPTOM/DIAGNOSIS: TACHYCARDIA, S/P KNEE REPLACEMENT, ? PE PE CHEST CT: CT angiography was performed with multi slice acquisition and multi planar and 3D reconstruction. CT scan of the chest was performed according to the pulmonary embolus protocol. There is no evidence of a pulmonary embolus. The thoracic aorta is intact. There is atherosclerosis present. No aneurysm or dissection is present. Heart size is within normal limits. No significant pericardial effusion is seen. No evidence of right ventricular dysfunction is present. Coronary artery calcifications are present. No pleural effusions, pneumothoraces or significant thoracic adenopathy is present. There are bilateral diffuse ground glass opacities throughout the lungs, most prominent at the upper lobes and the right lower lobe. The tracheobronchial tree is unremarkable. The thyroid gland is enlarged and heterogeneous, particularly the left lobe which appears to extend into the upper mediastinum. There is a rightward deviation of the trachea secondary to the enlarged left lobe of the thyroid gland. Degenerative changes are seen in the spine. IMPRESSION: 1. No evidence of a pulmonary embolus, thoracic aortic dissection or aneurysm. 2. Bilateral diffuse ground glass opacities suspicious for pneumonia. Atelectasis is considered less likely. 3. Enlarged thyroid gland, particularly the left lobe which is heterogeneous and extends into the upper mediastinum. Non emergent thyroid ultrasound should be considered for further evaluation.
--- NOTE | 2018-10-07 16:56 | DI.US_ITS ---
SYMPTOM/DIAGNOSIS: RECENT ORTHO SURGERY, SWELLING, PAIN, ? DVT LEFT LOWER EXTREMITY ULTRASOUND: The deep veins of the left lower extremity show normal compression, augmentation and color flow. No evidence of a deep venous thrombus is identified. The saphenofemoral junction appears grossly unremarkable. There is mild edema seen in the lower extremity. IMPRESSION: No evidence of a left lower extremity deep venous thrombus.
--- NOTE | 2018-10-07 17:02 | DI.VRAD_ITS ---
EXAM: CT Angiography Chest With Contrast EXAM DATE/TIME: 10/07/2018 3:44 PM CLINICAL HISTORY: 58 years old, female; Signs and symptoms; Patient HX: Tachycardic, 3 days post-op total knee replace; Additional info: R/O pe TECHNIQUE: Imaging protocol: Axial computed tomographic angiography images of the chest with intravenous contrast using CT angiography protocol. Coronal and sagittal reformatted images were created and reviewed. 3D rendering: MIP reconstructed images were created and reviewed. COMPARISON: CR XR CHEST 2V PA LATERAL 10/07/2018 11:37 AM FINDINGS: Pulmonary arteries: Normal. No pulmonary emboli. Aorta: There is moderate atherosclerosis of the thoracic aorta. Lungs: There are patchy areas of groundglass opacity scattered throughout both lungs. This is most prominent in the upper lobes. Pleural space: There no pleural effusions. Heart: Normal. No cardiomegaly. No pericardial effusion. Lymph nodes: Unremarkable. No enlarged lymph nodes. Bones/joints: Unremarkable. No acute fracture. Soft tissues: Unremarkable. Left lobe of the thyroid gland is markedly enlarged and contains a 1.7 cm hypodensity posteriorly within the gland. IMPRESSION: #1 no evidence of pulmonary emboli. However there is patchy areas of groundglass opacity throughout the lungs. This is not the typical appearance of postoperative atelectasis. These may be scattered areas of pneumonia. Clinical correlation suggested. #2 findings most likely representing thyroid goiter. Ultrasound the thyroid gland is suggested on on emergency basis. Dictated and Authenticated by: Dangelo Green MD. Ordering:ASHANTI Copeland MD
--- NOTE | 2018-10-07 17:29 | DI.VRAD_ITS ---
EXAM: US Duplex Left Lower Extremity Veins, Limited EXAM DATE/TIME: 10/07/2018 5:24 PM CLINICAL HISTORY: 58 years old, female; Pain and signs and symptoms; Swelling (edema) of limb; Lower extremity, left; Other: Recent left total knee replacement; Prior surgery; Surgery date: 3-7 days post-operative; Additional info: R/O pe TECHNIQUE: Imaging protocol: Real-time Duplex ultrasound of the Left Lower Extremity with 2-D minor scale, color Doppler flow and spectral waveform analysis. Limited exam focused on the left lower extremity veins. COMPARISON: No relevant prior studies available. FINDINGS: Left deep veins: Unremarkable. The common femoral, femoral, proximal profunda femoral and popliteal veins are patent without thrombus. Normal Doppler waveforms. Normal compressibility and/or augmentation response. Left superficial veins: Unremarkable. Saphenofemoral junction is patent without thrombus. Soft tissues: Unremarkable. IMPRESSION: No acute findings. No evidence of deep vein thrombosis. Dictated and Authenticated by: Dangelo Green MD. Ordering:KERI No MD
[2018-10-07] MEDS: Enoxaparin 40 MG/0.4 ML SYR SC (17:50)
[2018-10-07] MEDS: MORPHine 2 MG/ML SYR IVP ×2 (17:50→21:20)
[2018-10-07] MEDS: Normal Saline Flush 10 ML SYR IVP (17:51)
[2018-10-07] MEDS: traMADol 50 MG TAB PO (17:52)
[2018-10-07] MEDS: MAGNESIUM SULFATE 2 GM/50 ML BAG IVPB (17:52)
[2018-10-07] MEDS: PIPERACILLIN/TAZO 3.375 GM in Normal Saline 50 ML IVPB ×2 (18:32→23:34)
[2018-10-07 18:33] LABS: Sodium 134 mmol/L (136-145)
[2018-10-07] MEDS: Normal Saline 500 ML IV (19:32)
[2018-10-07] MEDS: Pantoprazole 40 MG VIAL IVP (19:54)
[2018-10-07] MEDS: Venlafaxine 75 MG TAB PO (19:55)
[2018-10-07] MEDS: Docusate Sodium 100 MG CAP PO (19:55)
[2018-10-07] MEDS: Acetaminophen 325 MG TAB PO (19:55)
[2018-10-07] MEDS: Calcium Carbonate 1.5 GM TAB PO (19:55)
[2018-10-07] MEDS: Polyethylene Glycol 3350 17 GM PACKET PO (19:56)
[2018-10-07] MEDS: Ketorolac 15 MG/ML VIAL IVP (20:42)
[2018-10-08] VITALS (14 sets, daily range): BP systolic 109–148; BP diastolic 51–79; PULSE 99–114; RESP 16–20; TEMP 37–38.2; O2SAT 90–97
[2018-10-08] MEDS: traMADol 50 MG TAB PO ×3 (00:17→15:25)
[2018-10-08] MEDS: Levothyroxine 25 MCG TAB 12.5 MCG PO (05:23)
[2018-10-08] MEDS: PIPERACILLIN/TAZO 3.375 GM in Normal Saline 50 ML IVPB ×2 (05:23→11:26)
[2018-10-08] MEDS: Ketorolac 15 MG/ML VIAL IVP ×3 (05:23→20:22)
[2018-10-08] MEDS: Normal Saline 1,000 ML 125 ML IV ×3 (06:30→22:00)
[2018-10-08 07:21] LABS: HCT 28.7 % (36.0-46.0); HGB 9.6 g/dL (12.0-15.5); Mean Corp. HGB Concentration 33.4 g/dL (32.0-36.0); Mean Corpuscular Hemoglobin 30.6 pg (27.0-33.0); Mean Corpuscular Volume 91.4 fL (80-95); Mean Platelet Volume 9.4 fL (8.0-11.0); Platelet Count 270 x1000/uL (130-400); RBC 3.14 m/cumm (4.00-5.20); RBC Distribution Width 12.7 % (11.7-14.6); White Blood Cell Count 6.56 k/cumm (4.4-10.8)
[2018-10-08 07:26] LABS: Anion Gap 7.5 mmol/L (3-11); BUN 9 mg/dL (7-18); CO2 30.5 mmol/L (21.0-32.0); CREATININE 0.73 mg/dL (0.55-1.02); Calcium 8.6 mg/dL (8.5-10.1); Chloride 98 mmol/L (98-107); Glucose 121 mg/dL (70-100); Magnesium 2.1 mg/dL (1.8-2.4); Potassium 3.9 mmol/L (3.5-5.1); Sodium 136 mmol/L (136-145); TSH 0.87 uIU/mL (0.358-3.74)
--- NOTE | 2018-10-08 07:32 | PDOC.CMIN ---
Care Management Initial Assess REASON FOR HOSPITALIZATION:: Hyponatremia, Vomiting, Increased fluid intake, S/P L TKA three days ago at [facility] PAST MEDICAL HISTORY/PAST SURGICAL HISTORY:: Allergic rhinitis, anxiety, depression, hyperlipidemia, hypothyroidism, tacycardia, GERD, osteoarthritis of knees bilateral, arthroscopy of right hand, colonoscopy, L TKA, partial thyroid, trigger finger release PREVIOUS FUNCTIONAL STATUS/SOCIAL/FAMILY SUPPORTS:: Alena resides in [place] with her , Nicholas. The couple has three adult children and grandchildren who reside locally. Alena is normally independent at baseline in the community, she had a left TKA completed at [facility] this week with resulting orders for home physical therapy upon discharging home. CURRENT FUNCTIONAL STATUS:: Alena was lying in bed, elevated visiting with her youngest child, Claire. She was forthcoming in information and light hearted in nature. She shared no concerns at this time and reviewed events leading up to this admission. Has patient been provided with information about the portal?: Yes Did the patient sign up for the portal?: No CODE STATUS:: Full Code INSURANCE COVERAGE / FINANCIAL ISSUES:: Medicaid CURRENT HOME/COMMUNITY SERVICES/EQUIPMENT:: [facility], [facility], [employer] PRIMARY CARE PHYSICIAN:: Tania Shahid POTENTIAL DISCHARGE NEEDS:: CTA of chest, PT evaluation, follow up appointments PATIENT/FAMILY EDUCATION NEEDS:: Review of discharge instructions, discuss Ask Me Three. ANTICIPATED BARRIERS TO DISCHARGE:: None identified. TRANSPORTATION:: Via private vehicle with her , Nicholas. PLAN:: Alena is being closely monitored, and additionally treated for suspected aspiration pneumonia. She will continue working with PT as she is four days s/p TKA. Anticipate she will return home with no services and an outpatient follow up plan. CM will continue to follow.
--- NOTE | 2018-10-08 08:03 | INITIAL_ITS ---
Care Management Initial Assess REASON FOR HOSPITALIZATION:: Hyponatremia, Vomiting, Increased fluid intake, S/P L TKA three days ago at [facility] [place] PAST MEDICAL HISTORY/PAST SURGICAL HISTORY:: Allergic rhinitis, anxiety, depression, hyperlipidemia, hypothyroidism, tacycardia, GERD, osteoarthritis of knees bilateral, arthroscopy of right hand, colonoscopy, L TKA, partial thyroid, trigger finger release PREVIOUS FUNCTIONAL STATUS/SOCIAL/FAMILY SUPPORTS:: Alena resides in [place] with her , Nicholas. The couple has three adult children and grandchildren who reside locally. Alena is normally independent at baseline in the community, she had a left TKA completed at [facility] [place] this week with resulting orders for home physical therapy upon discharging home. CURRENT FUNCTIONAL STATUS:: Alena was lying in bed, elevated visiting with her youngest child, Claire. She was forthcoming in information and light hearted in nature. She shared no concerns at this time and reviewed events leading up to this admission. Has patient been provided with information about the portal?: Yes Did the patient sign up for the portal?: No CODE STATUS:: Full Code INSURANCE COVERAGE / FINANCIAL ISSUES:: Medicaid CURRENT HOME/COMMUNITY SERVICES/EQUIPMENT:: [facility], [facility], [employer] PRIMARY CARE PHYSICIAN:: Tania Shahid POTENTIAL DISCHARGE NEEDS:: CTA of chest, PT evaluation, follow up appointments PATIENT/FAMILY EDUCATION NEEDS:: Review of discharge instructions, discuss Ask Me Three. ANTICIPATED BARRIERS TO DISCHARGE:: None identified. TRANSPORTATION:: Via private vehicle with her , Nicholas. PLAN:: Alena is being closely monitored, and additionally treated for suspected aspiration pneumonia. She will continue working with PT as she is four days s/p TKA. Anticipate she will return home with no services and an outpatient follow up plan. CM will continue to follow.
[2018-10-08] MEDS: Venlafaxine 75 MG TAB PO ×2 (08:56→20:23)
[2018-10-08] MEDS: Acetaminophen 325 MG TAB PO ×3 (08:56→20:22)
[2018-10-08] MEDS: Oxybutynin-CR 5 MG TABCR PO (08:56)
[2018-10-08] MEDS: Calcium Carbonate 1.5 GM TAB PO ×2 (08:56→20:22)
[2018-10-08] MEDS: Docusate Sodium 100 MG CAP PO ×3 (08:56→20:23)
[2018-10-08] MEDS: Aspirin 81 MG CHEW PO (08:56)
[2018-10-08] MEDS: Pantoprazole 40 MG VIAL IVP ×2 (08:57→20:22)
[2018-10-08] MEDS: Polyethylene Glycol 3350 17 GM PACKET PO ×2 (08:57→20:22)
--- NOTE | 2018-10-08 10:52 | PHARADMIT ---
Addendum entered by Saturnino Abbasi III 10/09/18 14:20: Pharmacy Note Subjective Patient is Post-op total knee m [facility] on 10/04 and has been tachycardic since arrival. Hyponatremia has resolved Objective HR-100, Lytes,SCr, H&H,WBC,Plts-WNL, Assessment On Azithromycin & Rocephin IV for pneumonia. Mucinex & Tessalon for cough. BM issues resolved following Mag Citrate last night. Toradol IV dc'd, Ibuprofen started Plan Plan is for patient to return home when ready. Original Note: Admission Pharmacy Clinical Review HYPONATREMIA, VOMITING, INCREASED FLUID INTAKE Code Status Full Code Current Weight Wgt-94.6 kg Renally Cleared and Narrow Therapeutic Index Meds CrCl~ 62.63 m/min Meds-OK QTc Value / Action Taken QTc-413 NA BP Control, Fever BP- 123/66 Tmax- 37.4C Electrolytes reviewed Na- 136 K+3.9 Mag-2.1 DVT Prophylaxis Lovenox- 40mg, ASA Opiate Usage / Scheduled Bowel Regimen Ordered Yes Yes Plt/SCr for Heparin / Enoxaparin Plts-270 SCr-0.73 INR for Warfarin na H/H stable, WBC/Bands H&H- 9.6/28.7 WBC- 6.56 Antibiotic appropriateness Zosyn Cultures and Sensitivities nne Surgical ABX d/c within 24 hr NA DM control / Insulin Dosing BG-121 Heart Failure (Check EF%) (GAGAN's, B-Block, Diuretics) none IV to PO Switch No Home Meds Reviewed Yes Home Meds Not Ordered Cleocin, Claritin, Meloxicam, Comments
--- NOTE | 2018-10-08 13:27 | PT.INIE ---
Date of service: 10/08/18 Time of Service: 12:28 PT Notes Inpatient Physical Therapy Evaluation Date: 10/08/2018 Referring Doctor: Marybel Albert NP PT Orders: PT CONSULT: L TKA at [facility] on 10/04/2018. Ambulating with walker. Precautions: Fall. Standard. WBAT on left LE. Patient Profile/Admitting Diagnosis: Patient is a 58-year-old female who presented to the ED on 10/07/2018 with chief complaints of nausea and vomiting, slurred speech, headache, and left knee pain and swelling. She was diagnosed with hyponatremia in the setting of Gabapentin and Oxycodone use for pain management for left TKA which she had on 10/04/2018 at [facility]; patient with concomitant diagnoses of tachycardia, hypothyroidism, anxiety, allergic rhinitis, hypomagnesemia, and constipation. Referral was received for continued functional mobility training to minimize post operative complications and facilitate return to premorbid independent mobility level. Patient was found to be negative for DVT as well as PE. Head CT showed no acute abnormality. PMHX: Medical History Allergic rhinitis (Acute) Hyperlipidemia (Acute) Osteoarthritis of knees, bilateral (Acute) Anxiety (Chronic) Depression (Chronic) Hypothyroidism (Chronic) Surgical History S/P total knee arthroplasty (Acute) Arthroscopy (~08/2014) Colonoscopy - IV Sedation (01/13/13) Thyroid Trigger Finger release Social History/Home Situation: Patient lives on the first floor of an apartment building with 6 steps to ente, no raileson either side but with posts on one side that she could hold onto. She was independent with all aspects of ADLs without the need to use an assistive ambulatory device nor any adaptive equipment. 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 Current Functional Limitations: Need for assistive ambulatory device for all transfer and ambulation tasks Equipment Owned/DME: [facility], bilateral axillary crutches, SC Subjective: Patient is pleasant and cooperative. She is agreeable to PT consult and treatment. She states she did not sleep well last night as she was lying on a stretcher. She hopes that she can get a better bed today. She states that swelling has significantly gone down as well as the pain since last night. She reports that she was dizzy this morning but clarifies that she is not at time of evaluation and throughout PT session. Objective: General Observation: Patient seen attempting to walk and move her legs as she stated she has been sitting for too long. Mepilex Ag dressing on left knee. IV in the right UE. Telemetry monitoring in place. Mental Status: Alert and oriented x3 Pain: 2/10 pain at rest; 4-5/10 with movement and weight-tbearing. Vital Signs: In supine, 109/60 mmHg and 110 bpm. In sitting, 120/67 mmHg with a 103 bpm. In standing, 123/51 mmHg with 103 bpm. ROM: Right Upper Extremity: Shoulder Flexion WFL. Shoulder abduction WFL. Elbow flexion WFL. Wrist flexion WFL. Functional opening and closing of hand WFL. Left Upper Extremity: Shoulder Flexion WFL. Shoulder abduction WFL. Elbow flexion WFL. Wrist flexion WFL. Functional opening and closing of hand WFL. Right Lower Extremity: Hip flexion WFL. Hip abduction WFL. Knee flexion WFL. Ankle dorsiflexion WFL. Ankle plantarflexion WFL. Left Lower Extremity: Hip flexion 20 degrees beyond 90 while seated at edge of bed. Hip abduction WFL. Knee flexion 0 to 95 degrees while seated at edge of bed. Ankle dorsiflexion WFL. Ankle plantarflexion WFL. Strength: STRENGTH: Right Upper Extremity: Shoulder flexors 5/5. Shoulder abductors 5/5. Elbow flexors 5/5. Elbow extensors 5/5. Manager Intermediate strong. Left Upper Extremity: Shoulder flexors 5/5. Shoulder abductors 5/5. Elbow flexors 5/5. Elbow extensors 5/5. Manager Intermediate strong. Right Lower Extremity: Hip flexors 5/5. Hip abductors 5/5. Knee flexors 5/5. Knee extensors 5/5. Ankle dorsiflexors 5/5. Ankle plantarflexors 5/5. Left Lower Extremity:Hip flexors 3-/5. Hip abductors 4/5. Knee flexors 3-/5. Knee extensors 4-/5. Ankle dorsiflexors 4/5. Ankle plantarflexors 4/5. Sensation: Intact as to pain and pressure on the legs and feet BED MOBILITY LEVELS/TRANSFERS Rolling independent Supine to sit supervision Sit to supine supervision Sit to stand SBA Stand to sit SBA Bed to chair SBA Chair to bed SBA Gait: Patient was able to tolerate level surface ambulation using bilateral axillary crutches for 60 feet x 2 with CGA of PT and IV pole management of HONING JOB SETTER with increase in pain level to 4-5/10 , minimal cueing needed for posture as patient tends to bend forward to much and for correct gait pattern. It was suggested that patient use a front wheeled walker at this time in order to increase independence and minimize forward trunk flexion with bilateral axillary crutches. Balance: Static Sitting: Good Dynamic Sitting: Good Static Standing: Fair Dynamic Standing: Fair Special Tests: Mobility Limitations Standardized Measure [facility] 6 clicks Basic Mobility Inpatient Short Form: Raw Score: 21 CMS Score: 99% deficit Informed Consent/Education: Patient instructed in purpose of PT consult and plan of care. Patient was instructed with moving ankle pumping for 20 times every hour while in bed or while seated on chair. She was also instructed on doing LAQs with 5-second hold at the end of range immediately followed by sliding heel backwards while at edge of bed or seated on chair and holding flexed position to before the point of pain or discomfort for 5 counts before going back to doing LAQ the repeat head 5 times, 1 set every hour. Deep breathing exercises was also emphasized in between each activity. Patient was reminded to use cryocuff after each set of exercises. Assessment: Patient is a 58 year old female referred to physical therapy services with the diagnosis of hyponatremia, tachycardia, anxiety, hypomagnesemia, constipation, and is status post left total knee arthroplasty on postoperative day 3. Patient presents with clinical signs and symptoms consistent with current/admitting diagnoses and postoperative status that have resulted to mobility limitations, gait instability, generalized weakness, and impairment of motor control as demonstrated by the following impairment level findings: 1. Decreased strength to left knee major muscle groups 2. Impaired sitting/standing balance 3. Impaired activity tolerance 4. Limitation of joint range of motion in left knee Impairments are contributing to the following functional limitations: 1. Increased dependence with transfers 2. Inability to safely ambulate without assistive device and physical assistance 3. Increase completion time for mobility ADL performance 4. Increased fall risk 5. 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 Supine-Sit independent 2. Sit-Supine independent 3. Sit-Stand independent 4. Stand-Sit independent 5. Bed-Chair independent 6. Chair-Bed independent 7. Independent gait on level surface with use of least restrictive device for at least 300 feet without report of pain nor dyspnea 8. Independent stair negotiation while holding onto bilateral rails for at least 10 steps without report of pain nor dyspnea 9. Independent with home exercise program 10. Good static and dynamic standing balance/tolerance Plan of Care/Treatment Plan: 1-2x/day, 7 days/week x 1 week. Plan of care has been reviewed with the THERMAL CUTTING MACHINE OPERATOR providing the service under Physical Therapy direction. Initiate Physical Therapy intervention for strengthening, bed mobility, transfers, gait, stairs, balance training, use of assistive device. DISCHARGE RECOMMENDATIONS: Patient will benefit from resumption of home health physical therapy services in order to maximize mobility level at home, assess home safety, and facilitate return to vocational activities. No equipment needs at this time TREATMENT CODE/TIME: 82343 13 minutes, 12478 23 minutes, beginning at 12:28 PM. Thank you for this referral. Erica Alexander, PT, DPT, CLT [facility]
--- NOTE | 2018-10-08 13:49 | W.PM.PROGNOT ---
Date of Service Date of service: 10/08/18 Time of Service: 13:49 Assessment and Plan (1) CAP (community acquired pneumonia): Start date: 10/08/18 Start time: 14:01 Current visit: Yes Status: Acute CT of chest reveals patchy areas of groundglass opacity throughout the lungs. Not typical appearance of postoperative atelectasis, these may be scattered areas of pneumonia. Febrile this am with tachycardia, wbc is normalized at 6.56. Recently had left total knee replacement a [facility] [place] [place] 4 days ago. Given a spinal anesthesia during same day surgery. So she will be treated for CAP with rocephin and azithromycin, originally thought to have VAP from surgery, confirmed by patient to have spinal. (2) Hyponatremia: Start date: 10/08/18 Start time: 13:50 Current visit: Yes Status: Acute In the setting of recent left total knee replacement (3 days ago at [facility] [place] [place]), with gabapentin and oxycodone for pain control, with subsequent dry mouth and increased free water intake and nausea and vomiting. Sodium has improved at 136 with chloride 98. IVF at 125 continue overnight and reevaluate in the am. (3) S/P total knee arthroplasty: Start date: 10/08/18 Start time: 13:51 Current visit: Yes Status: Acute Status post left total knee arthroplasty at [facility] on 10/04/2018, same day surgery. Recent u/s to r/o dvt negative for thrombus. Swelling to the left leg with minimal pain, continue PT/OT Morphine for pain, tordal for pain, and tramadol (4) Nausea & vomiting: Start date: 10/08/18 Start time: 14:23 Current visit: Yes Status: Acute No nausea and vomiting today, continue to monitor, zofran as needed (5) Tachycardia: Start date: 10/08/18 Start time: 14:24 Current visit: Yes Status: Acute Unlikely PE, u/s of lower extremity negative for thrombus CTA representing pneumonia, not hypoxic, continue on telemetry, being treated for CAP see above. Seen in the past for tachycardia and placed on zoi patch last year by our facility. (6) Acid reflux: Start date: 10/08/18 Start time: 14:32 Current visit: Yes Status: Chronic Twice daily IV Protonix. Hold meloxicam. (7) Hypothyroidism: Start date: 10/08/18 Start time: 14:32 Current visit: No Status: Acute TSH historically within normal limits. Continue home dose of levothyroxine at 12.5 mcg daily. TSH with 0.87. CT revealing thyroid goiter, suggest an u/s of the thyroid, test pending. No airway occlusion or difficulty breathing dose endorse having thyroid surgery in the past in high school. (8) Depressive disorder: Start date: 10/08/18 Start time: 14:34 Current visit: No Status: Acute Continue Effexor 75 mg p.o. twice daily. (9) Anxiety: Start date: 10/08/18 Start time: 14:34 Current visit: No Status: Acute Continue home Klonopin as needed. (10) Hypomagnesemia: Start date: 10/08/18 Start time: 14:34 Current visit: Yes Status: Acute Level 2.1 continue to monitor and replete as necessary. (11) Constipation: Start date: 10/08/18 Start time: 14:35 Current visit: Yes Status: Acute No bowel movement in 5 days Begin bowel regimen. Magnesium citrate x 1 now, (12) DVT prophylaxis: Start date: 10/08/18 Start time: 14:36 Current visit: Yes Status: Acute Subcutaneous Lovenox. (13) Discharge planning issues: Start date: 10/08/18 Start time: 14:36 Current visit: Yes Status: Acute She is a full code. We will place PT consult as she had a left total knee arthroplasty 3 days ago. Subjective Patient reports: feels better Interval history since last seen: Mrs. Gamez is improving. She feels better today. Her sodium level has improved at 136, continue gentle hydration overnight and dc fluids in the am. Patient states when she had surgery at [facility] [place] [place] 4 days ago she had a spinal block. CT reveals opacities that are groundglass may be scattered areas of pneumonia, originally thought to be ventilator associated, given spinal block unlikely, zosyn dcd and started on ceftriazone with azithromycin for CAP, she was febrile today at 38.2 and 37.6. She is not requiring oxygen. Her white count is with in normal limits. Continue to monitor WBC and temperatures, she has been hydrated in the last 24 hours. No vomiting or nausea at this time. U/S shows no thrombus and awaiting for thyroid u/s at this time after CT recommends due to thyroid goiter. She denies Nausea, vomiting, diarrhea, chest pain and shortness of breath. Exam Narrative Exam Narrative: General: Awake and alert, laying in stretcher with head of bed elevated, in no acute distress. HEENT: Normocephalic, atraumatic, pupils equal round, extraocular movements intact, mucous membranes slightly dry. Neck: Supple, no JVD. Cardiovascular: Heart has regular rate, tachycardic, no murmur appreciated. Respiratory: Respirations even and unlabored, lung sounds clear to auscultation throughout. Abdomen: Normoactive bowel sounds x4 quadrants, soft, nontender on palpation, no masses appreciated. Extremities: Left lower extremity with significant edema along entire leg, erythema and ecchymosis to left medial knee and thigh. Area surrounding the left knee warm to touch. Left calf edematous, nontender on palpation, no clonus. Pedal pulses palpable bilaterally. Neurological: No focal deficits. Objective Objective Clinical Data: Abnormal lab results 10/07/18 10/07/18 10/08/18 Range/Units 14:25 18:15 06:45 RBC (4.00-5.20) m/cumm Hgb (12.0-15.5) g/dL Hct (36.0-46.0) % D-Dimer 2679 H (<500) ng/mlFEU Sodium 134 L (136-145) mmol/L Glucose 121 H (70-100) mg/dL 10/08/18 Range/Units 06:45 RBC 3.14 L (4.00-5.20) m/cumm Hgb 9.6 L (12.0-15.5) g/dL Hct 28.7 L (36.0-46.0) % D-Dimer (<500) ng/mlFEU Sodium (136-145) mmol/L Glucose (70-100) mg/dL Vital Signs Temperature 37.6 C H 10/08/18 13:13 Temperature Source Temporal Artery Scan 10/08/18 13:13 Pulse 102 H 10/08/18 13:13 Pulse Rhythm Regular 10/08/18 09:09 Pulse 112 H 10/07/18 15:31 Respiratory Rate 17 10/08/18 13:13 Respiratory Effort Non-Labored 10/08/18 09:09 Respiratory Depth Normal 10/08/18 09:09 Respiratory Pattern Normal 10/08/18 09:09 Blood Pressure 128/76 10/08/18 13:13 Blood Pressure Mean 92 10/07/18 15:31 Pulse Oximetry 94 L 10/08/18 13:13 Oxygen Delivery Method Room Air 10/08/18 13:13 Oxygen Flow Rate 0 10/08/18 13:13 Pain Level 2 10/08/18 08:56 Comment 10/08/18 12:45 Intake & Output 10/07/18 10/08/18 10/08/18 23:59 11:59 23:59 Intake Total 2712.5 / 2712.5 1597.5 / 1597.5 Output Total 1500 / 1500 Balance 2712.5 / 2712.5 97.5 / 97.5 Intake: IV 2712.5 / 2712.5 887.5 / 887.5 Oral 710 / 710 Output: Urine 1500 / 1500 Other: Urine Color Straw Urine Appearance Clear Urine Odor Normal Voiding Methods Toilet Laboratory Results WBC 6.56 k/cumm (4.4-10.8) 10/08/18 06:45 RBC 3.14 m/cumm (4.00-5.20) L 10/08/18 06:45 Hgb 9.6 g/dL (12.0-15.5) L 10/08/18 06:45 Hct 28.7 % (36.0-46.0) L 10/08/18 06:45 MCV 91.4 fL (80-95) 10/08/18 06:45 MCH 30.6 pg (27.0-33.0) 10/08/18 06:45 MCHC 33.4 g/dL (32.0-36.0) 10/08/18 06:45 RDW 12.7 % (11.7-14.6) 10/08/18 06:45 Plt Count 270 x1000/uL (130-400) 10/08/18 06:45 MPV 9.4 fL (8.0-11.0) 10/08/18 06:45 Immature Gran % 0.1 10/07/18 11:05 Neutrophils % 83.0 10/07/18 11:05 Lymphocytes % 6.9 10/07/18 11:05 Monocytes % 6.3 10/07/18 11:05 Eosinophils % 3.3 10/07/18 11:05 Basophils % 0.4 10/07/18 11:05 Absolute Neutrophils 5.81 k/cumm (1.2-6.7) 10/07/18 11:05 Absolute Lymphocytes 0.48 k/cumm (1.2-3.4) L 10/07/18 11:05 Absolute Monocytes 0.44 k/cumm (0.11-0.7) 10/07/18 11:05 Absolute Eosinophils 0.23 k/cumm (0.0-0.7) 10/07/18 11:05 Absolute Basophils 0.03 k/cumm (0.0-0.2) 10/07/18 11:05 D-Dimer 2679 ng/mlFEU (<500) H 10/07/18 14:25 Sodium 136 mmol/L (136-145) 10/08/18 06:45 Potassium 3.9 mmol/L (3.5-5.1) 10/08/18 06:45 Chloride 98 mmol/L (98-107) 10/08/18 06:45 Carbon Dioxide 30.5 mmol/L (21.0-32.0) 10/08/18 06:45 Anion Gap 7.5 mmol/L (3-11) 10/08/18 06:45 BUN 9 mg/dL (7-18) 10/08/18 06:45 Creatinine 0.73 mg/dL (0.55-1.02) 10/08/18 06:45 Estimated GFR/1.73 m2 >= 60.00 (mL/min/1.73m2) 10/08/18 06:45 Glucose 121 mg/dL (70-100) H 10/08/18 06:45 Calcium 8.6 mg/dL (8.5-10.1) 10/08/18 06:45 Magnesium 2.1 mg/dL (1.8-2.4) 10/08/18 06:45 Total Bilirubin 1.2 mg/dL (0.2-1.0) H 10/07/18 11:05 AST 29 U/L (15-37) 10/07/18 11:05 ALT 32 U/L (12-78) 10/07/18 11:05 Alkaline Phosphatase 77 U/L (46-116) 10/07/18 11:05 Troponin I < 0.02 ng/mL (0.00-0.06) 10/07/18 14:25 Total Protein 6.8 g/dL (6.4-8.2) 10/07/18 11:05 Albumin 3.3 g/dL (3.4-5.0) L 10/07/18 11:05 TSH 0.87 uIU/mL (0.358-3.74) 10/08/18 06:45 Urine Color Yellow (Yellow) 10/07/18 12:00 Urine Clarity Clear 10/07/18 12:00 Urine pH 7.5 (5-8) 10/07/18 12:00 Ur Specific [place] 1.015 (1.005-1.025) 10/07/18 12:00 Urine Protein Trace mg/dL (Negative) H 10/07/18 12:00 Urine Ketones Negative mg/dL (Negative) 10/07/18 12:00 Urine Blood Trace-intact (Negative) H 10/07/18 12:00 Urine Nitrite Negative (Negative) 10/07/18 12:00 Urine Bilirubin Negative (Negative) 10/07/18 12:00 Urine Urobilinogen 0.2 EU/dL (Up TO 0.2) 10/07/18 12:00 Ur Leukocyte Esterase Negative (Negative) 10/07/18 12:00 Urine RBC 3-5 (0-2) H 10/07/18 12:00 Urine WBC 0-2 HPF (0-5) 10/07/18 12:00 Ur Epithelial Cells Moderate HPF (Negative) 10/07/18 12:00 Urine Crystals Negative HPF (Negative) 10/07/18 12:00 Urine Bacteria Rare HPF (Negative) 10/07/18 12:00 Urine Casts Negative LPF (Negative) 10/07/18 12:00 Urine Mucus Trace (Negative) 10/07/18 12:00 Urine Other Negative (Negative) 10/07/18 12:00 Ur Culture Indicated? No 10/07/18 12:00 Urine Glucose Negative mg/dL (Negative) 10/07/18 12:00
--- NOTE | 2018-10-08 13:56 | IN_ITS ---
Date of service: 10/08/18 Time of Service: 12:28 PT Notes Inpatient Physical Therapy Evaluation Date: 10/08/2018 Referring Doctor: Marybel Albert NP PT Orders: PT CONSULT: L TKA at [facility] on 10/04/2018. Ambulating with walker. Precautions: Fall. Standard. WBAT on left LE. Patient Profile/Admitting Diagnosis: Patient is a 58-year-old female who presented to the ED on 10/07/2018 with chief complaints of nausea and vomiting, slurred speech, headache, and left knee pain and swelling. She was diagnosed with hyponatremia in the setting of Gabapentin and Oxycodone use for pain management for left TKA which she had on 10/04/2018 at [facility]; patient with concomi tant diagnoses of tachycardia, hypothyroidism, anxiety, allergic rhinitis, hypomagnesemia, and constipation. Referral was received for continued functional mobility training to minimize post operative complications and facilitate return to premorbid independent mobility level. Patient was found to be negative for DVT as well as PE. Head CT showed no acute abnormality. PMHX: Medical History Allergic rhinitis (Acute) Hyperlipidemia (Acute) Osteoarthritis of knees, bilateral (Acute) Anxiety (Chronic) Depression (Chronic) Hypothyroidism (Chronic) Surgical History S/P total knee arthroplasty (Acute) Arthroscopy (~08/2014) Colonoscopy - IV Sedation (01/13/13) Thyroid Trigger Finger release Social History/Home Situation: Patient lives on the first floor of an apartment building with 6 steps to ente, no raileson either side but with posts on one side that she could hold onto. She was independent with all aspects of ADLs without the need to use an assistive ambulatory device nor any adaptive equipment. 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 Current Functional Limitations: Need for assistive ambulatory device for all transfer and ambulation tasks Equipment Owned/DME: FWW, bilateral axillary crutches, SC Subjective: Patient is pleasant and cooperative. She is agreeable to PT consult and treatment. She states she did not sleep well last night as she was lying on a stretcher. She hopes that she can get a better bed today. She states that swelling has significantly gone down as well as the pain since last night. She reports that she was dizzy this morning but clarifies that she is not at time of evaluation and throughout PT session. Objective: General Observation: Patient seen attempting to walk and move her legs as she stated she has been sitting for too long. Mepilex Ag dressing on left knee. IV in the right UE. Telemetry monitoring in place. Mental Status: Alert and oriented x3 Pain: 2/10 pain at rest; 4-5/10 with movement and weight-tbearing. Vital Signs: In supine, 109/60 mmHg and 110 bpm. In sitting, 120/67 mmHg with a 103 bpm. In standing, 123/51 mmHg with 103 bpm. ROM: Right Upper Extremity: Shoulder Flexion WFL. Shoulder abduction WFL. Elbow flexion WFL. Wrist flexion WFL. Functional opening and closing of hand WFL. Left Upper Extremity: Shoulder Flexion WFL. Shoulder abduction WFL. Elbow flexion WFL. Wrist flexion WFL. Functional opening and closing of hand WFL. Right Lower Extremity: Hip flexion WFL. Hip abduction WFL. Knee flexion WFL. A nkle dorsiflexion WFL. Ankle plantarflexion WFL. Left Lower Extremity: Hip flexion 20 degrees beyond 90 while seated at edge of bed. Hip abduction WFL. Knee flexion 0 to 95 degrees while seated at edge of bed. Ankle dorsiflexion WFL. Ankle plantarflexion WFL. Strength: STRENGTH: Right Upper Extremity: Shoulder flexors 5/5. Shoulder abductors 5/5. Elbow flexors 5/5. Elbow extensors 5/5. Political Geographer strong. Left Upper Extremity: Shoulder flexors 5/5. Shoulder abductors 5/5. Elbow flexors 5/5. Elbow extensors 5/5. Political Geographer strong. Right Lower Extremity: Hip flexors 5/5. Hip abductors 5/5. Knee flexors 5/5. Knee extensors 5/5. Ankle dorsiflexors 5/5. Ankle plantarflexors 5/5. Left Lower Extremity:Hip flexors 3-/5. Hip abductors 4/5. Knee flexors 3-/5. Knee extensors 4-/5. Ankle dorsiflexors 4/5. Ankle plantarflexors 4/5. Sensation: Intact as to pain and pressure on the legs and feet BED MOBILITY LEVELS/TRANSFERS Rolling independent Supine to sit supervision Sit to supine supervision Sit to stand SBA Stand to sit SBA Bed to chair SBA Chair to bed SBA Gait: Patient was able to tolerate level surface ambulation using bilateral axillary crutches for 60 feet x 2 with CGA of PT and IV pole management of SYSTEM OPERATOR with increase in pain level to 4-5/10 , minimal cueing needed for posture as patient tends to bend forward to much and for correct gait pattern. It was suggested that patient use a front wheeled walker at this time in order to increase independence and minimize forward trunk flexion with bilateral axillary crutches. Balance: Static Sitting: Good Dynamic Sitting: Good Static Standing: Fair Dynamic Standing: Fair Special Tests: Mobility Limitations Standardized Measure [facility]-PAC 6 clicks Basic Mobility Inpatient Short Form: Raw Score: 21 CMS Score: 99% deficit Informed Consent/Education: Patient instructed in purpose of PT consult and plan of care. Patient was instructed with moving ankle pumping for 20 times every hour while in bed or while seated on chair. She was also instructed on doing LAQs with 5-second hold at the end of range immediately followed by sliding heel backwards while at edge of bed or seated on chair and holding flexed position to before the point of pain or discomfort for 5 counts before going back to doing LAQ the repeat head 5 times, 1 set every hour. Deep breathing exercises was also emphasized in between each activity. Patient was reminded to use cryocuff after each set of exercises. Assessment: Patient is a 58 year old female referred to physical therapy services with the diagnosis of hyponatremia, tachycardia, anxiety, hypomagnesemia, constipation, and is status post left total knee arthroplasty on postoperative day 3. Patient presents with clinical signs and symptoms consistent with current/admitting diagnoses and postoperative status that have resulted to mobility limitations, gait instability, generalized weakness, and impairment of motor control as demonstrated by the following impairment level findings: 1. Decreased strength to left knee major muscle groups 2. Impaired sitting/standing balance 3. Impaired activity tolerance 4. Limitation of joint range of motion in left knee Impairments are contributing to the following functional limitations: 1. Increased dependence with transfers 2. Inability to safely ambulate without assistive device and physical assistance 3. Increase completion time for mobility ADL performance 4. Increased fall risk 5. Inability to negotiate steps alone safely Patient is assessed Moderate 18059 complexity based on the following: History: 58-year-old cognitively intact female status post left total knee arthroplasty who was independent with all aspects of ADLs FOREST RANGER currently admitted for diagnoses indicated above Examination: Underlying impairments and functional limitations as indicated above Presentation: Evolving Decision Makin moderate complexity Goals: Goals X1 week 1. Supine-Sit independent 2. Sit-Supine independent 3. Sit-Stand independent 4. Stand-Sit independent 5. Bed-Chair independent 6. Chair-Bed independent 7. Independent gait on level surface with use of least restrictive device for at least 300 feet without report of pain nor dyspnea 8. Independent stair negotiation while holding onto bilateral rails for at least 10 steps without report of pain nor dyspnea 9. Independent with home exercise program 10. Good static and dynamic standing balance/tolerance Plan of Care/Treatment Plan: 1-2x/day, 7 days/week x 1 week. Plan of care has been reviewed with the FOREST RANGER providing the service under Physical Therapy direction. Initiate Physical Therapy intervention for strengthening, bed mobility, transfers, gait, stairs, balance training, use of assistive device. DISCHARGE RECOMMENDATIONS: Patient will benefit from resumption of home health physical therapy services in order to maximize mobility level at home, assess home safety, and facilitate return to vocational activities. No equipment needs at this time TREATMENT CODE/TIME: 83138 13 minutes, 99066 23 minutes, beginning at 12:28 PM. Thank you for this referral. Erica Alexander, PT, DPT, CLT [facility]
[2018-10-08] MEDS: cefTRIAXone 1 GM/50 ML BAG IVPB (15:01)
[2018-10-08] MEDS: Magnesium Citrate 300 ML BTL 150 ML PO (15:05)
[2018-10-08] MEDS: Enoxaparin 40 MG/0.4 ML SYR SC (15:29)
[2018-10-08] MEDS: AZITHROMYCIN 500 MG in Normal Saline 250 ML 250 MG IVPB (16:01)
[2018-10-08] MEDS: Rosuvastatin 10 MG TAB PO (22:01)
[2018-10-09] VITALS (10 sets, daily range): BP systolic 128–146; BP diastolic 72–83; PULSE 93–105; RESP 16–18; TEMP 36.8–37.3; O2SAT 96–98
[2018-10-09] MEDS: Acetaminophen 325 MG TAB PO ×3 (04:24→16:47)
[2018-10-09] MEDS: Normal Saline 1,000 ML 125 ML IV (06:00)
[2018-10-09 07:04] LABS: Abs Immature Grans 0.02 k/cumm (0.0-0.09); Absolute Basophil Count 0.03 k/cumm (0.0-0.2); Absolute Eosinophil Count 0.44 k/cumm (0.0-0.7); Absolute Lymphocyte Count 0.94 k/cumm (1.2-3.4); Absolute Monocyte Count 0.67 k/cumm (0.11-0.7); Absolute Neutrophil Count 5.19 k/cumm (1.2-6.7); Basophils % 0.4; HCT 29.4 % (36.0-46.0); HGB 9.6 g/dL (12.0-15.5); Immature Grans % 0.3; Lymphocytes % 12.9; Mean Corp. HGB Concentration 32.7 g/dL (32.0-36.0); Mean Corpuscular Hemoglobin 30.2 pg (27.0-33.0); Mean Corpuscular Volume 92.5 fL (80-95); Mean Platelet Volume 9.4 fL (8.0-11.0); Monocytes % 9.2; Neutrophils % 71.2; Platelet Count 298 x1000/uL (130-400); RBC 3.18 m/cumm (4.00-5.20); White Blood Cell Count 7.29 k/cumm (4.4-10.8)
[2018-10-09] MEDS: Levothyroxine 25 MCG TAB 12.5 MCG PO (07:14)
[2018-10-09] MEDS: traMADol 50 MG TAB PO ×3 (07:21→20:24)
[2018-10-09 07:26] LABS: Anion Gap 7.3 mmol/L (3-11); BUN 8 mg/dL (7-18); CO2 29.7 mmol/L (21.0-32.0); CREATININE 0.62 mg/dL (0.55-1.02); Calcium 8.5 mg/dL (8.5-10.1); Chloride 101 mmol/L (98-107); Glucose 111 mg/dL (70-100); Magnesium 2.2 mg/dL (1.8-2.4); Potassium 3.8 mmol/L (3.5-5.1); Sodium 138 mmol/L (136-145)
--- NOTE | 2018-10-09 08:15 | PDOC.CMPRO ---
- If Service Date Differs Date of service: 10/09/18 Time of Service: 08:15 Care Management Progress Note S/O:Alena remains acute no change in status today. She continues on IV antibiotics today is day 2. Blood cultures pending, sputum culture pending. She is maintaining her oxygen saturation on room air. She has a PT consult. A:Alena is a 58 year old female admitted status post R TKA, admitted with hyponatremia, vomiting and pneumonia P:Alena is being closely monitored, and additionally treated for suspected aspiration pneumonia. She will continue working with PT as she is four days s/p TKA. Anticipate she will return home with no services and an outpatient follow up plan. CM will continue to follow.
[2018-10-09 08:48] LABS: FREE T4 1.23 ng/dL (0.76-1.46)
[2018-10-09] MEDS: Normal Saline Flush 10 ML SYR IVP (09:40)
[2018-10-09] MEDS: Polyethylene Glycol 3350 17 GM PACKET PO (09:40)
[2018-10-09] MEDS: Pantoprazole 40 MG VIAL IVP (09:41)
[2018-10-09] MEDS: Docusate Sodium 100 MG CAP PO ×3 (09:41→20:20)
[2018-10-09] MEDS: Calcium Carbonate 1.5 GM TAB PO ×2 (09:41→20:20)
[2018-10-09] MEDS: Aspirin 81 MG CHEW PO (09:41)
[2018-10-09] MEDS: Oxybutynin-CR 5 MG TABCR PO (09:41)
[2018-10-09] MEDS: Venlafaxine 75 MG TAB PO ×2 (09:41→20:20)
[2018-10-09] MEDS: Potassium Chloride 20 MEQ TABCR PO (09:51)
--- NOTE | 2018-10-09 10:27 | PT.INTREAT ---
Date of service: 10/09/18 Time of Service: 10:27 PT Notes 10/09/18 SUBJECTIVE: Alena stating she is doing better overall. She complains of knee cap discomfort and pressure from the swelling throughout her left leg. OBJECTIVE: Agreeable to PT treatment. TRANSFERS Sit to stand: I Stand to sit: I Supine to sit: I Sit to supine: I GAIT Device: FWW Weight bearing: AT L Assist: SBA Distance: 100'x2 Deviation: Step through pattern THEREX: Quad setting, light AROM at the left knee and SLR. Encouraged continues strengthening throughout the day. LYMPH DRAINAGE: Perform brief manual lymph drainage to the left leg starting proximal working distally. Educate pt on how to do this independently. ASSESSMENT: Continues to have quite a bit of swelling surrounding left knee into the calf and thigh. Post treatment we place cryo cuff and elevate her legs. She is tolerating ambulation well with FWW. PLAN: Continue current POC progressing toward's established goals. Treatment time: 25 minutes [id number], [id number] Chayito Galan, BRENDA
--- NOTE | 2018-10-09 10:30 | DI.RAD_ITS ---
SYMPTOMS/DIAGNOSIS: COUGH, CRACKLES CHEST: Frontal and lateral views. Comparison 10/07/17. The heart size and pulmonary vasculature are within normal limits. There are air space opacities in the right upper and right lower lobes suspicious for pneumonia. The left lung appears clear. No gross effusions or pneumothoraces are identified. Degenerative changes are seen in the spine. IMPRESSION: Right upper and right lower lobe infiltrates suspicious for pneumonia.
[2018-10-09] MEDS: guaiFENesin 600 MG TABCR PO ×2 (10:41→20:20)
[2018-10-09] MEDS: Benzonatate 100 MG CAP PO ×3 (10:41→20:20)
--- NOTE | 2018-10-09 10:53 | DI.VRAD_ITS ---
EXAM: XR Chest, 2 Views EXAM DATE/TIME: 10/09/2018 10:05 AM CLINICAL HISTORY: 58 years old, female; Signs and symptoms; Cough and other: Crackles; Patient HX: Partial knee replacement 10 days ago TECHNIQUE: Imaging protocol: XR of the chest, 2 views. COMPARISON: CR XR CHEST 2V PA LATERAL 10/07/2018 11:37 AM FINDINGS: Lungs: Airspace disease in the lateral right lung base most consistent with pneumonia. Pleural space: Unremarkable. No pleural effusion. No pneumothorax. Heart/Mediastinum: Unremarkable. No cardiomegaly. Bones/joints: Mild dextroscoliosis. Moderate thoracic spondylosis. IMPRESSION: Airspace disease in the lateral right lung base most consistent with pneumonia. Dictated and Authenticated by: Dangelo Arboleda MD. Ordering:MARGARET Fraga MD
--- NOTE | 2018-10-09 11:14 | PGE_ITS ---
Date of Service Date of service: 10/09/18 Time of Service: 11:46 Assessment and Plan (1) CAP (community acquired pneumonia): Start date: 10/09/18 Start time: 11:13 Current visit: Yes Status: Acute She had a bout of a coughing fit this am with a small amount of sputum production and states feelings of a tickle in lungs and like she has to cough something up. CXR ordered revealing Right lower lobe pneumonia. Day 2 of azithromycin and rocephin. Blood cultures pending, sputum culture pending. Mucinex ordered and tessalon pearles for cough, continue incentive spirometery. Room air oxygen 96%, Lung sounds with crackles, no wheezing or rhonchi at this time. Slight febrile last night and night before. White count in normal range. (2) Hyponatremia: Start date: 10/09/18 Start time: 11:19 Current visit: Yes Status: Acute Resolved. sodium 138 today. IVF dcd, continue to monitor and replete as necessary. (3) S/P total knee arthroplasty: Start date: 10/09/18 Start time: 11:20 Current visit: Yes Status: Acute Status post left total knee arthroplasty at [facility] on 10/04/2018, same day surgery. Recent u/s to r/o dvt negative for thrombus. Swelling to the left leg with minimal pain, continue PT/OT ibuprofen 600 mg for pain, and tramadol continue to monitor. (4) Nausea & vomiting: Start date: 10/09/18 Start time: 11:22 Current visit: Yes Status: Acute Resolved continue to assess, zofran as needed (5) Tachycardia: Start date: 10/09/18 Start time: 11:23 Current visit: Yes Status: Acute Heart rate Improving from admission 105 today, continue to treat pneumonia, could be a result of infection, or thyroid, t free 4 pending and thyroid u/s for tomorrow (6) Acid reflux: Start date: 10/09/18 Start time: 11:31 Current visit: Yes Status: Chronic Switched to PO protonix BID (7) Hypothyroidism: Start date: 10/09/18 Start time: 11:32 Current visit: No Status: Acute TSH historically within normal limits. Continue home dose of levothyroxine at 12.5 mcg daily. TSH with 0.87. T4 ordered and pending CT revealing thyroid goiter, suggest an u/s of the thyroid, test pending. No airway occlusion or difficulty breathing dose endorse having thyroid surgery in the past in high school. (8) Depressive disorder: Start date: 10/09/18 Start time: 11:32 Current visit: No Status: Acute Continue Effexor 75 mg p.o. twice daily. (9) Anxiety: Start date: 10/09/18 Start time: 11:32 Current visit: No Status: Acute Continue home Klonopin as needed. (10) Hypomagnesemia: Start date: 10/09/18 Start time: 11:32 Current visit: Yes Status: Acute Level 2.1 continue to monitor and replete as necessary. (11) Constipation: Start date: 10/09/18 Start time: 11:32 Current visit: Yes Status: Acute Resolved BM today after mag citrate. (12) DVT prophylaxis: Start date: 10/09/18 Start time: 11:33 Current visit: Yes Status: Acute Subcutaneous Lovenox. (13) Discharge planning issues: Current visit: Yes Status: Acute She is a full code. We will place PT consult as she had a left total knee arthroplasty 4 days ago. Subjective Patient reports: feels better Interval history since last seen: Mrs. Gamez is feeling better today despite h aving a coughing fit this am with sputum production and feeling of heaviness like she has to cough something up. A CXR was done revealing RLL pneumonia, slight fever this am with a normalized blood count. Mucolytics ordered, blood cultures and sputum culture, ordered. Crackles in lower bases of lung bhat, IVF dcd, ICS encouraged, not requiring oxygen at this time. If patient is not feeling better tomorrow or febrile consider changing antibiotics. Sodium level has normalized. HR is around 100's which is improved from admission continue teley consider infection vs thyroid for increased heart rate. T4 pending and thyroid u/s for tomorrow. Complaining of pain toradol dcd and ibuprofen 600 mg ordered. Protonix changed to PO BID. Patient denies chest pain, shortness of breath, nausea, vomiting and diarrhea. Exam Narrative Exam Narrative: General: Awake and alert, laying in stretcher with head of bed elevated, in no acute distress. HEENT: Normocephalic, atraumatic, pupils equal round, extraocular movements intact, mucous membranes slightly dry. Neck: Supple, no JVD. Cardiovascular: Heart has regular rate, tachycardic, slight systolic murmur grade 1/6 appreciated near LSB Respiratory: Respirations even and unlabored, lung sounds clear to auscultation throughout. Abdomen: Normoactive bowel sounds x4 quadrants, soft, nontender on palpation, no masses appreciated. Extremities: Left lower extremity with edema along entire leg, erythema and ecchymosis to left medial knee and thigh. Area surrounding the left knee warm to touch. Left calf edematous, nontender on palpation, no clonus. Pedal pulses palpable bilaterally. Neurological: No focal deficits. Objective Objective Clinical Data: Abnormal lab results 10/09/18 10/09/18 Range/Units 06:20 06:20 RBC 3.18 L (4.00-5.20) m/cumm Hgb 9.6 L (12.0-15.5) g/dL Hct 29.4 L (36.0-46.0) % Absolute Lymphocytes 0.94 L (1.2-3.4) k/cumm Glucose 111 H (70-100) mg/dL Vital Signs Temperature 37.2 C 10/09/18 07:00 Temperature Source Tympanic 10/09/18 07:00 Pulse 105 H 10/09/18 07:41 Pulse Rhythm Regular 10/09/18 02:00 Pulse 112 H 10/07/18 15:31 Respiratory Rate 16 10/09/18 07:00 Respiratory Effort Non-Labored 10/09/18 02:00 Respiratory Depth Normal 10/09/18 02:00 Respiratory Pattern Normal 10/09/18 02:00 Blood Pressure 146/81 H 10/09/18 07:00 Blood Pressure Mean 92 10/07/18 15:31 Pulse Oximetry 96 10/09/18 09:55 Oxygen Delivery Method Room Air 10/09/18 09:55 Oxygen Flow Rate 0 10/09/18 09:55 Pain Level 4 10/09/18 07:21 Comment 10/09/18 04:25 Intake & Output 10/08/18 10/08/18 10/09/18 11:59 23:59 11:59 Intake Total 1647.5 / 5310.417 3662.917 / 5310.417 2052.083 / 2052.083 Output Total 1500 / 4000 2500 / 4000 1600 / 1600 Balance 147.5 / 8473.212 7739.917 / 1310.417 452.083 / 452.083 Intake: IV 937.5 / 3110.417 2172.917 / 3110.417 1602.083 / 1602.083 Oral 710 / 2200 1490 / 2200 450 / 450 Output: Urine 1500 / 4000 2500 / 4000 1600 / 1600 Other: Urine Color Straw Yellow Yellow Urine Appearance Clear Clear Clear Urine Odor Normal Normal Stool Size Moderate Stool Characteristics Formed Voiding Methods Toilet Toilet Laboratory Results WBC 7.29 k/cumm (4.4-10.8) 10/09/18 06:20 RBC 3.18 m/cumm (4.00-5.20) L 10/09/18 06:20 Hgb 9.6 g/dL (12.0-15.5) L 10/09/18 06:20 Hct 29.4 % (36.0-46.0) L 10/09/18 06:20 MCV 92.5 fL (80-95) 10/09/18 06:20 MCH 30.2 pg (27.0-33.0) 10/09/18 06:20 MCHC 32.7 g/dL (32.0-36.0) 10/09/18 06:20 RDW 13.0 % (11.7-14.6) 10/09/18 06:20 Plt Count 298 x1000/uL (130-400) 10/09/18 06:20 MPV 9.4 fL (8.0-11.0) 10/09/18 06:20 Immature Gran % 0.3 10/09/18 06:20 Neutrophils % 71.2 10/09/18 06:20 Lymphocytes % 12.9 10/09/18 06:20 Monocytes % 9.2 10/09/18 06:20 Eosinophils % 6.0 10/09/18 06:20 Basophils % 0.4 10/09/18 06:20 Absolute Neutrophils 5.19 k/cumm (1.2-6.7) 10/09/18 06:20 Absolute Lymphocytes 0.94 k/cumm (1.2-3.4) L 10/09/18 06:20 Absolute Monocytes 0.67 k/cumm (0.11-0.7) 10/09/18 06:20 Absolute Eosinophils 0.44 k/cumm (0.0-0.7) 10/09/18 06:20 Absolute Basophils 0.03 k/cumm (0.0-0.2) 10/09/18 06:20 D-Dimer 2679 ng/mlFEU (<500) H 10/07/18 14:25 Sodium 138 mmol/L (136-145) 10/09/18 06:20 Potassium 3.8 mmol/L (3.5-5.1) 10/09/18 06:20 Chloride 101 mmol/L (98-107) 10/09/18 06:20 Carbon Dioxide 29.7 mmol/L (21.0-32.0) 10/09/18 06:20 Anion Gap 7.3 mmol/L (3-11) 10/09/18 06:20 BUN 8 mg/dL (7-18) 10/09/18 06:20 Creatinine 0.62 mg/dL (0.55-1.02) 10/09/18 06:20 Estimated GFR/1.73 m2 >= 60.00 (mL/min/1.73m2) 10/09/18 06:20 Glucose 111 mg/dL (70-100) H 10/09/18 06:20 Calcium 8.5 mg/dL (8.5-10.1) 10/09/18 06:20 Magnesium 2.2 mg/dL (1.8-2.4) 10/09/18 06:20 Total Bilirubin 1.2 mg/dL (0.2-1.0) H 10/07/18 11:05 AST 29 U/L (15-37) 10/07/18 11:05 ALT 32 U/L (12-78) 10/07/18 11:05 Alkaline Phosphatase 77 U/L (46-116) 10/07/18 11:05 Troponin I < 0.02 ng/mL (0.00-0.06) 10/07/18 14:25 Total Protein 6.8 g/dL (6.4-8.2) 10/07/18 11:05 Albumin 3.3 g/dL (3.4-5.0) L 10/07/18 11:05 TSH 0.87 uIU/mL (0.358-3.74) 10/08/18 06:45 Free T4 1.23 ng/dL (0.76-1.46) 10/09/18 06:20 Urine Color Yellow (Yellow) 10/07/18 12:00 Urine Clarity Clear 10/07/18 12:00 Urine pH 7.5 (5-8) 10/07/18 12:00 Ur Specific [place] 1.015 (1.005-1.025) 10/07/18 12:00 Urine Protein Trace mg/dL (Negative) H 10/07/18 12:00 Urine Ketones Negative mg/dL (Negative) 10/07/18 12:00 Urine Blood Trace-intact (Negative) H 10/07/18 12:00 Urine Nitrite Negative (Negative) 10/07/18 12:00 Urine Bilirubin Negative (Negative) 10/07/18 12:00 Urine Urobilinogen 0.2 EU/dL (Up TO 0.2) 10/07/18 12:00 Ur Leukocyte Esterase Negative (Negative) 10/07/18 12:00 Urine RBC 3-5 (0-2) H 10/07/18 12:00 Urine WBC 0-2 HPF (0-5) 10/07/18 12:00 Ur Epithelial Cells Moderate HPF (Negative) 10/07/18 12:00 Urine Crystals Negative HPF (Negative) 10/07/18 12:00 Urine Bacteria Rare HPF (Negative) 10/07/18 12:00 Urine Casts Negative LPF (Negative) 10/07/18 12:00 Urine Mucus Trace (Negative) 10/07/18 12:00 Urine Other Negative (Negative) 10/07/18 12:00 Ur Culture Indicated? No 10/07/18 12:00 Urine Glucose Negative mg/dL (Negative) 10/07/18 12:00
[2018-10-09] MEDS: Ibuprofen 600 MG TAB PO ×3 (11:36→23:06)
[2018-10-09] MEDS: AZITHROMYCIN 500 MG in Normal Saline 250 ML 250 MG IVPB (14:37)
[2018-10-09] MEDS: Enoxaparin 40 MG/0.4 ML SYR SC (15:44)
[2018-10-09] MEDS: cefTRIAXone 1 GM/50 ML BAG IVPB (15:44)
--- NOTE | 2018-10-09 18:35 | PT.INTREAT ---
PT Notes Inpatient Physical Therapy Treatment Note [facility] Date: [] PRECAUTIONS:[] SUBJECTIVE: [] OBJECTIVE: [] PAIN: [] BED MOBILITY/TRANSFERS Rolling L/R: [] Supine-sit: [] Sit-supine: [] Sit-stand: [] Stand-sit: [] Bed-Chair: [] Chair-bed: [] GAIT Assistive Device: [] Weight bearing: [] Assist: [] Distance: [] Deviation: [] VITALS: [] THEREX: [] STAIRS:[] ASSESSMENT: [] PLAN: [] TREATMENT CODE/TIME: []
[2018-10-09] MEDS: Pantoprazole 40 MG TABCR PO (20:20)
[2018-10-09] MEDS: Rosuvastatin 10 MG TAB PO (20:24)
[2018-10-10] MEDS: traMADol 50 MG TAB PO ×2 (03:37→09:26)
[2018-10-10 03:58] VITALS: BP 152/98; PULSE 93; RESP 18; TEMP 36.8; O2SAT 97
[2018-10-10] MEDS: Ibuprofen 600 MG TAB PO ×2 (05:15→12:37)
[2018-10-10] MEDS: Levothyroxine 25 MCG TAB 12.5 MCG PO (05:15)
[2018-10-10 07:17] LABS: Abs Immature Grans 0.04 k/cumm (0.0-0.09); Absolute Basophil Count 0.04 k/cumm (0.0-0.2); Absolute Lymphocyte Count 1.15 k/cumm (1.2-3.4); Absolute Monocyte Count 0.73 k/cumm (0.11-0.7); Absolute Neutrophil Count 4.21 k/cumm (1.2-6.7); Basophils % 0.6; Eosinophils % 8.9; HGB 10.1 g/dL (12.0-15.5); Immature Grans % 0.6; Mean Corp. HGB Concentration 32.6 g/dL (32.0-36.0); Mean Corpuscular Hemoglobin 30.3 pg (27.0-33.0); Mean Corpuscular Volume 93.1 fL (80-95); Mean Platelet Volume 9.3 fL (8.0-11.0); Monocytes % 10.8; Neutrophils % 62.1; Platelet Count 313 x1000/uL (130-400); RBC 3.33 m/cumm (4.00-5.20); RBC Distribution Width 12.9 % (11.7-14.6); White Blood Cell Count 6.77 k/cumm (4.4-10.8)
[2018-10-10 07:29] LABS: Anion Gap 7.6 mmol/L (3-11); BUN 8 mg/dL (7-18); CO2 30.4 mmol/L (21.0-32.0); CREATININE 0.66 mg/dL (0.55-1.02); Chloride 101 mmol/L (98-107); Glucose 97 mg/dL (70-100); Magnesium 2.3 mg/dL (1.8-2.4); Potassium 3.8 mmol/L (3.5-5.1); Sodium 139 mmol/L (136-145)
[2018-10-10 07:30] VITALS: BP 134/78; PULSE 91; RESP 14; TEMP 36.9; O2SAT 96
[2018-10-10] MEDS: Normal Saline Flush 10 ML SYR IVP (08:12)
[2018-10-10] MEDS: Oxybutynin-CR 5 MG TABCR PO (08:12)
[2018-10-10] MEDS: Calcium Carbonate 1.5 GM TAB PO (08:12)
[2018-10-10] MEDS: Venlafaxine 75 MG TAB PO (08:12)
[2018-10-10] MEDS: guaiFENesin 600 MG TABCR PO (08:13)
[2018-10-10] MEDS: Aspirin 81 MG CHEW PO (08:13)
[2018-10-10] MEDS: Benzonatate 100 MG CAP PO ×2 (08:13→14:17)
[2018-10-10] MEDS: Pantoprazole 40 MG TABCR PO (08:13)
[2018-10-10] MEDS: Cefpodoxime 200 MG TAB PO (09:26)
[2018-10-10] MEDS: Potassium Chloride 20 MEQ TABCR PO (09:26)
[2018-10-10 09:49] VITALS: PULSE 95
[2018-10-10 11:35] VITALS: BP 151/87; PULSE 96; RESP 18; TEMP 37; O2SAT 95
[2018-10-10] MEDS: Azithromycin 250 MG TAB PO (12:36)
--- NOTE | 2018-10-10 12:57 | PT.INTREAT ---
Date of service: 10/10/18 Time of Service: 12:57 PT Notes Inpatient Physical Therapy Treatment Note [facility] Date: 10/10/18 PRECAUTIONS: WBAT on L SUBJECTIVE: Alena states that she is feeling much better, and is ready to go home today. She reports that she has been independently transferring in her room, and that she went for a walk earlier today utilizing an SPC. OBJECTIVE: PAIN: Patient c/o L knee discomfort with ther ex. BED MOBILITY/TRANSFERS Supine-sit: I Sit-supine: I Sit-stand: I Stand-sit: I GAIT Assistive Device: SPC Weight bearing: WBAT on L Assist: S Distance: 150' THEREX: Patient completed a LE strengthening and stabilization program, as per flow sheet. She is able to complete active SLR x10. Ended session with cryocuff to L knee. STAIRS: Up/down 3x4 and 2x6 using 1 rail/SPC and a step-to pattern with supervision. ASSESSMENT: Patient tolerated session well with minimal c/o L knee discomfort with ther ex. She was able to perform gait training with SPC and supervision, demonstrating steady gait and appropriate pacing. Patient would benefit from continued gait training and strengthening for improved activity tolerance. PLAN: Continue with PT's POC TREATMENT CODE/TIME: 30 minutes; [id number], [id number]
--- NOTE | 2018-10-10 13:00 | DI.US_ITS ---
SYMPTOMS/DIAGNOSIS: GOITER NOTED ON CTA CHEST THYROID ULTRASOUND: Comparison CT scan of the chest is 10/07/18. The right lobe measures 4 x 1.3 x 1.6 cm. It is heterogeneous with normal blood flow. There are at least three discrete masses seen within the right lobe, the largest is seen inferiorly and has cystic and solid qualities with mild internal vascularity. There is a complex 0.5 cm mass in the upper pole, which shows mild vascularity. The left lobe measures 5.7 x 2.6 x 2.5 cm. There are multiple nodules present. The largest is a mostly solid mass with increased blood flow in the inferior pole, which measures 2.3 x 2 x 2.3 cm. There are three complex vascular masses in the upper and mid pole, the largest measures 2.5 cm and is located in the mid pole. IMPRESSION: Multinodular thyroid gland, the next largest nodule is mostly solid with internal blood flow and is located in the inferior pole of the left lobe and measures 2.3 x 2 x 2.3 cm. Followup as clinically appropriate. This might include nuclear medicine examination or biopsy.
--- NOTE | 2018-10-10 15:35 | PT.INDS ---
Date of service: 10/10/18 Time of Service: 15:35 PT Notes Inpatient Physical Therapy Discharge Summary Dates: 10/10/2018 Dates of Service: 10/08/2018 through 10/10/2018 This is a clinical summary of skilled PT services provided on the dates listed above. No charge was made in the completion of this documentation. Referring Doctor: Marybel Albert NP PT Orders: PT CONSULT: L TKA at [facility] on 10/04/2018. Ambulating with walker. Precautions: Fall. Standard. WBAT on left LE. Patient Profile/Admitting Diagnosis: Patient is a 58-year-old female who presented to the ED on 10/07/2018 with chief complaints of nausea and vomiting, slurred speech, headache, and left knee pain and swelling. She was diagnosed with hyponatremia in the setting of Gabapentin and Oxycodone use for pain management for left TKA which she had on 10/04/2018 at [facility]; patient with concomitant diagnoses of tachycardia, hypothyroidism, anxiety, allergic rhinitis, hypomagnesemia, and constipation. Referral was received for continued functional mobility training to minimize post operative complications and facilitate return to premorbid independent mobility level. Patient was found to be negative for DVT as well as PE. Head CT showed no acute abnormality. PMHX: Medical History Allergic rhinitis (Acute) Hyperlipidemia (Acute) Osteoarthritis of knees, bilateral (Acute) Anxiety (Chronic) Depression (Chronic) Hypothyroidism (Chronic) Surgical History S/P total knee arthroplasty (Acute) Arthroscopy (~08/2014) Colonoscopy - IV Sedation (01/13/13) Thyroid Trigger Finger release Social History/Home Situation: Patient lives on the first floor of an apartment building with 6 steps to ente, no raileson either side but with posts on one side that she could hold onto. She was independent with all aspects of ADLs without the need to use an assistive ambulatory device nor any adaptive equipment. 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 Current Functional Limitations: Need for assistive ambulatory device for all transfer and ambulation tasks Equipment Owned/DME: [employer], bilateral axillary crutches, SC Subjective: NT Objective: General Observation: NT Mental Status: NT ROM: Right Upper Extremity: Shoulder Flexion WFL. Shoulder abduction WFL. Elbow flexion WFL. Wrist flexion WFL. Functional opening and closing of hand WFL. Left Upper Extremity: Shoulder Flexion WFL. Shoulder abduction WFL. Elbow flexion WFL. Wrist flexion WFL. Functional opening and closing of hand WFL. Right Lower Extremity: Hip flexion WFL. Hip abduction WFL. Knee flexion WFL. Ankle dorsiflexion WFL. Ankle plantarflexion WFL. Left Lower Extremity: Hip flexion 20 degrees beyond 90 while seated at edge of bed. Hip abduction WFL. Knee flexion 0 to 95 degrees while seated at edge of bed. Ankle dorsiflexion WFL. Ankle plantarflexion WFL. Strength: STRENGTH: Right Upper Extremity: Shoulder flexors 5/5. Shoulder abductors 5/5. Elbow flexors 5/5. Elbow extensors 5/5. 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 Left Upper Extremity: Shoulder flexors 5/5. Shoulder abductors 5/5. Elbow flexors 5/5. Elbow extensors 5/5. 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 Right Lower Extremity: Hip flexors 5/5. Hip abductors 5/5. Knee flexors 5/5. Knee extensors 5/5. Ankle dorsiflexors 5/5. Ankle plantarflexors 5/5. Left Lower Extremity:Hip flexors 3-/5. Hip abductors 4/5. Knee flexors 3-/5. Knee extensors 4-/5. Ankle dorsiflexors 4/5. Ankle plantarflexors 4/5. Sensation: Intact as to pain and pressure on the legs and feet BED MOBILITY LEVELS/TRANSFERS Rolling independent Supine to sit independent Sit to supine independent Sit to stand independent Stand to sit independent Chair to bed independent Gait: Patient was able to tolerate level surface ambulation using SC for 150 feet x 2 with supervision. Balance: Static Sitting: Good Dynamic Sitting: Good Static Standing: Fair Dynamic Standing: Fair Special Tests: Mobility Limitations Standardized Measure [facility]-P[facility] 6 clicks Basic Mobility Inpatient Short Form: Raw Score: 21 CMS Score: 29% deficit Assessment: Patient is a 58 year old female referred to physical therapy services with the diagnosis of hyponatremia, tachycardia, anxiety, hypomagnesemia, constipation, and is status post left total knee arthroplasty on postoperative day 3. Patient presents with clinical signs and symptoms consistent with current/admitting diagnoses and postoperative status that have resulted to mobility limitations, gait instability, generalized weakness, and impairment of motor control as demonstrated by the following impairment level findings: 1. Decreased strength to left knee major muscle groups 2. Impaired sitting/standing balance 3. Impaired activity tolerance 4. Limitation of joint range of motion in left knee Impairments are contributing to the following functional limitations: 1. Increased dependence with transfers 2. Inability to safely ambulate without assistive device and physical assistance 3. Increase completion time for mobility ADL performance 4. Increased fall risk 5. Inability to negotiate steps alone safely Goals: Goals X1 week 1. Supine-Sit independent MET 2. Sit-Supine independent MET 3. Sit-Stand independent MET 4. Stand-Sit independent MET 5. Bed-Chair independent MET 6. Chair-Bed independent MET 7. Independent gait on level surface with use of least restrictive device for at least 300 feet without report of pain nor dyspnea NOT MET 8. Independent stair negotiation while holding onto bilateral rails for at least 10 steps without report of pain nor dyspnea NOT MET 9. Independent with home exercise program MET 10. Good static and dynamic standing balance/tolerance NOT MET DISCHARGE RECOMMENDATIONS: Patient will benefit from resumption of home health physical therapy services in order to maximize mobility level at home, assess home safety, and facilitate return to vocational activities. No equipment needs at this time TREATMENT CODE/TIME: N/A. Thank you for this referral. Erica Alexander, PT, DPT, CLT [facility]
--- NOTE | 2018-10-10 15:43 | INDS_ITS ---
Date of service: 10/10/18 Time of Service: 15:35 PT Notes Inpatient Physical Therapy Discharge Summary Dates: 10/10/2018 Dates of Service: 10/08/2018 through 10/10/2018 This is a clinical summary of skilled PT services provided on the dates listed above. No charge was made in the completion of this documentation. Referring Doctor: Marybel Albert NP PT Orders: PT CONSULT: L TKA at [facility] on 10/04/2018. Ambulating with walker. Precautions: Fall. Standard. WBAT on left LE. Patient Profile/Admitting Diagnosis: Patient is a 58-year-old female who presented to the ED on 10/07/2018 with chief complaints of nausea and vomiting, slurred speech, headache, and left knee pain and swelling. She was diagnosed with hyponatremia in the setting of Gabapentin and Oxycodone use for pain management for left TKA which she had on 10/04/2018 at [facility]; patient with concomitant diagnoses of tachycardia, hypothyroidism, anxiety, allergic rhinitis, hypomagnesemia, and constipation. Referral was received for continued functional mobility training to minimize post operative complications and facilitate return to premorbid independent mobility level. Patient was found to be negative for DVT as well as PE. Head CT showed no acute abnormality. PMHX: Medical History Allergic rhinitis (Acute) Hyperlipidemia (Acute) Osteoarthritis of knees, bilateral (Acute) Anxiety (Chronic) Depression (Chronic) Hypothyroidism (Chronic) Surgical History S/P total knee arthroplasty (Acute) Arthroscopy (~08/2014) Colonoscopy - IV Sedation (01/13/13) Thyroid Trigger Finger release Social History/Home Situation: Patient lives on the first floor of an apartment building with 6 steps to ente, no raileson either side but with posts on one side that she could hold onto. She was independent with all aspects of ADLs without the need to use an assistive ambulatory device nor any adaptive equipment. 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 Current Functional Limitations: Need for assistive ambulatory device for all transfer and ambulation tasks Equipment Owned/DME: FWW, bilateral axillary crutches, SC Subjective: NT Objective: General Observation: NT Mental Status: NT ROM: Right Upper Extremity: Shoulder Flexion WFL. Shoulder abduction WFL. Elbow flexion WFL. Wrist flexion WFL. Functional opening and closing of hand WFL. Left Upper Extremity: Shoulder Flexion WFL. Shoulder abduction WFL. Elbow flexion WFL. Wrist flexion WFL. Functional opening and closing of hand WFL. Right Lower Extremity: Hip flexion WFL. Hip abduction WFL. Knee flexion WFL. Ankle dorsiflexion WFL. Ankle plantarflexion WFL. Left Lower Extremity: Hip flexion 20 degrees beyond 90 while seated at edge of bed. Hip abduction WFL. Knee flexion 0 to 95 degrees while seated at edge of bed. Ankle dorsiflexion WFL. Ankle plantarflexion WFL. Strength: STRENGTH: Right Upper Extremity: Shoulder flexors 5/5. Shoulder abductors 5/5. Elbow flexors 5/5. Elbow extensors 5/5. Dish Technician strong. Left Upper Extremity: Shoulder flexors 5/5. Shoulder abductors 5/5. Elbow flexors 5/5. Elbow extensors 5/5. Dish Technician strong. Right Lower Extremity: Hip flexors 5/5. Hip abductors 5/5. Knee flexors 5/5. Knee extensors 5/5. Ankle dorsiflexors 5/5. Ankle plantarflexors 5/5. Left Lower Extremity:Hip flexors 3-/5. Hip abductors 4/5. Knee flexors 3-/5. Knee extensors 4-/5. Ankle dorsiflexors 4/5. Ankle plantarflexors 4/5. Sensation: Intact as to pain and pressure on the legs and feet BED MOBILITY LEVELS/TRANSFERS Rolling independent Supine to sit independent Sit to supine independent Sit to stand independent Stand to sit independent Chair to bed independent Gait: Patient was able to tolerate level surface ambulation using SC for 150 feet x 2 with supervision. Balance: Static Sitting: Good Dynamic Sitting: Good Static Standing: Fair Dynamic Standing: Fair Special Tests: Mobility Limitations Standardized Measure [facility] 6 clicks Basic Mobility Inpatient Short Form: Raw Score: 21 CMS Score: 29% deficit Assessment: Patient is a 58 year old female referred to physical therapy services with the diagnosis of hyponatremia, tachycardia, anxiety, hypomagnesemia, constipation, and is status post left total knee arthroplasty on postoperative day 3. Patient presents with clinical signs and symptoms consis tent with current/admitting diagnoses and postoperative status that have resulted to mobility limitations, gait instability, generalized weakness, and impairment of motor control as demonstrated by the following impairment level findings: 1. Decreased strength to left knee major muscle groups 2. Impaired sitting/standing balance 3. Impaired activity tolerance 4. Limitation of joint range of motion in left knee Impairments are contributing to the following functional limitations: 1. Increased dependence with transfers 2. Inability to safely ambulate without assistive device and physical assistance 3. Increase completion time for mobility ADL performance 4. Increased fall risk 5. Inability to negotiate steps alone safely Goals: Goals X1 week 1. Supine-Sit independent MET 2. Sit-Supine independent MET 3. Sit-Stand independent MET 4. Stand-Sit independent MET 5. Bed-Chair independent MET 6. Chair-Bed independent MET 7. Independent gait on level surface with use of least restrictive device for at least 300 feet without report of pain nor dyspnea NOT MET 8. Independent stair negotiation while holding onto bilateral rails for at least 10 steps without report of pain nor dyspnea NOT MET 9. Independent with home exercise program MET 10. Good static and dynamic standing balance/tolerance NOT MET DISCHARGE RECOMMENDATIONS: Patient will benefit from resumption of home health physical therapy services in order to maximize mobility level at home, assess home safety, and facilitate return to vocational activities. No equipment needs at this time TREATMENT CODE/TIME: N/A. Thank you for this referral. Erica Alexander, PT, DPT, CLT [facility]
--- NOTE | 2018-10-10 15:56 | DSE_ITS ---
Documented by User: Philly Portillo NP 10/10/18 16:04 Date of service: 10/10/18 Time of Service: 15:39 DS: Diagnosis Discharge Diagnosis (1) CAP (community acquired pneumonia): Status: Acute (2) Hyponatremia: Status: Acute (3) S/P total knee arthroplasty: Status: Acute (4) Nausea & vomiting: Status: Acute (5) Tachycardia: Status: Acute (6) Acid reflux: Status: Chronic (7) Hypothyroidism: Status: Acute (8) Depressive disorder: Status: Acute (9) Anxiety: Status: Acute (10) Hypomagnesemia: Status: Acute (11) Constipation: Status: Acute (12) DVT prophylaxis: Status: Acute (13) Discharge planning issues: Status: Acute Discharge Plan Disposition Patient Disposition: HOME Condition: Improving Discharge Details Reason For Visit: HYPONATREMIA, VOMITING, INCREASED FLUID INTAKE, S/ Admit Date/Time: 10/08/18 12:51 Admit Provider: Dangelo Benitez Attending Provider: Dangelo Benitez [facility] Hospital Course: Vomiting, slurred speech, PEREZ, L knee pain. Narrative: Alena Gamez is a very pleasant 58-year-old female with a past medical history significant for hypothyroidism, hyperlipidemia, anxiety and depression, and recent left knee replacement 3 days ago at [facility]. She presented to the emergency room after having multiple vomiting episodes at home as well as a headache and slurred speech. In the emergency department, she was noted to be in sinus tachycardia on EKG, note was made of less than [address] depression in V4 through V6 but no acute ST elevation. Her troponin was less than 0.02 x2. She denied chest pain/pressure, palpitations. She had a chest x-ray that was negative, left knee x-ray negative, she had a head CT that was negative. Her labs were notable for hyponatremia with a sodium of 125, her chloride was also low at 85, magnesium low at 1.4, her hemoglobin was low at 11.4 and her hematocrit was 32.8. She had no leukocytosis. Her d-dimer was elevated at 2679, she was referred for a CTA chest prior to transfer to the med/surg floor. An order was placed for LLE ultrasound as well. When she was seen in the emergency department, she was no longer experiencing nausea or vomiting. She reported taking gabapentin and oxycodone on an empty stomach at home. She was taking 10 mg of oxycodone per dose. She reported that her nausea and vomiting began 1 day ago, she denied hematemesis, she vomited approximately 3 times prior to her presentation to the emergency department today. She also reported constipation, she has not had a bowel movement in 4 days. As above, she denied chest pain/pressure, palpitations, she denies shortness of breath, coughing and wheezing at the present time. She was no longer experiencing speech difficulty. She reported that her left lower extremi ty has had significant edema, erythema and ecchymosis. She has been getting around her house okay using a walker, she has been more sedentary than usual due to her recent left knee surgery. Once her CTA chest and left lower extremity ultrasound are complete, she will be admitted to the [facility] floor for further evaluation and management. Over the course of her stay she was found to have RLL pneumonia by CXR slight fever on 10/08 and sputum production. During surgery she had a spinal block at [facility] putting her at low risk for HCAP and VAP, she did not stay overnight it was a same day surgery. She was started on rocephin and azithromycin IV. Today she is looking well, lung sounds clear, not requiring oxygen. Afebrile with a normal white count. Blood cultures with no growth. Transitioned to PO azithromycin and cefpodoxime. She will finish a course at home. Her tachycardia has resolved, believed to be in setting of infection. She will need follow up for her thyroid after u/s revealed thyroid nodules Multinodular thyroid gland, the next largest nodule is mostly solid with internal blood flow and is located in the inferior pole of the left lobe and measures 2.3 x 2 x 2.3 cm. Followup as clinically appropriate. This might include nuclear medicine examination or biopsy. Recommendation for follow up was spoken at length with the patient. She understands she will need to follow up. S he has a history of her right sided thyroid gland removed in high school per her. Follow up with ortho per scheduled, she will be given a couple of tramadol for severe pain otherwise advised to take ibuprofen and tylenol for pain control with Ice to affected limb. 1) CAP (community acquired pneumonia): She had a bout of a coughing fit yesterday with a small amount of sputum production and states feelings of a tickle in lungs and like she has to cough something up. CXR ordered revealing Right lower lobe pneumonia. Day 2 of azithromycin and rocephin. Blood cultures NGTD sputum culture was not obtained. Mucinex ordered and tessalon pearles for cough, continue incentive spirometery. Room air oxygen 96%, Lung sounds with clear, no wheezing or rhonchi at this time. Afebrile with normal white count. (2) Hyponatremia: Resolved. sodium 138 today. IVF dcd, continue to monitor and replete as necessary. (3) S/P total knee arthroplasty: Status post left total knee arthroplasty at [facility] on 10/04/2018, same day surgery. Recent u/s to r/o dvt negative for thrombus. Swelling to the left leg with minimal pain, continue PT/OT ibuprofen 600 mg for pain, and tramadol continue to monitor. (4) Nausea & vomiting: Resolved continue to assess, zofran as needed (5) Tachycardia: Resolved most likely tachy in setting of infection (6) Acid reflux: Switched to PO protonix BID (7) Hypothyroidism: TSH historically within normal limits. Continue home dose of levothyroxine at 12.5 mcg daily. TSH with 0.87. T4 in normal range. U/S showing nodules that will need follow up as an outpatient. Spoke at length importance of follow up with patient. (8) Depressive disorder: Continue Effexor 75 mg p.o. twice daily. (9) Anxiety: Continue home Klonopin as needed. (10) Hypomagnesemia: Level 2.1 continue to monitor and replete as necessary. (11) Constipation: Resolved BM after mag citrate. (12) DVT prophylaxis: Subcutaneous Lovenox. (13) Discharge planning issues: She is a full code. We will place PT consult as she had a left total knee arthroplasty 5 days ago. Home Meds and New Rx's Prescriptions: New cefpodoxime 200 mg Tablet 200 mg PO Q12H Qty: 16 RF: 0 azithromycin 250 mg Tablet 250 mg PO DAILY@1200 Qty: 3 RF: 0 tramadol 50 mg Tablet 25 - 50 mg PO Q6H PRN PRN (Reason: pain (scale score 7-10)) Qty: 10 RF: 0 docusate sodium [Colace] 100 mg Capsule 100 mg PO TID Qty: 30 RF: 0 ibuprofen [IBU] 600 mg Tablet 600 mg PO Q6H Qty: 30 RF: 0 guaifenesin [Mucinex] 600 mg Tablet Extended Release 12hr 600 mg PO BID Qty: 10 RF: 0 Continued calcium carbonate 600 mg calcium (1,500 mg) tablet 600 mg PO BID Qty: 180 RF: 3 cholecalciferol (vitamin D3) [Vitamin D3] 2,000 unit capsule 2,000 unit PO DAILY Qty: 90 RF: 3 venlafaxine 75 MG tablet 75 mg PO BID Qty: 180 RF: 3 meloxicam [Mobic] 15 MG tablet 15 mg PO DAILY PRNQty: 30 RF: 0 clonazepam [Klonopin] 0.5 MG tablet 1 tab PO BID PRN Qty: 25 RF: 1 loratadine 10 MG tablet 10 mg PO DAILY Qty: 30 RF: 1 oxybutynin chloride 5 MG tablet extended release 24hr 5 mg PO DAILY Qty: 90 RF: 3 rosuvastatin [Crestor] 10 mg tablet 10 mg PO DAILY Qty: 90 RF: 4 levothyroxine 25 mcg tablet 12.5 mcg PO DAILY Qty: 90 RF: 1 aspirin 81 mg Tablet,Chewable 81 mg PO DAILY RF: 0 Discharge Instructions Instructions: Dehydration (GEN), Pain Management After Surgery (GEN), Narcotic Pain Management (GEN), Opioid Pain Management (GEN) Additional Instructions: Follow up with your PCP in one week. Recommend getting your thyroid examined soon. Follow up with Ortho. Take Ibuprofen and tylenol for mild to moderate pain, take tramadol for severe pain Take all antibiotics as prescribed. Eat yogurt daily x 1 month or take probiotic for antibiotic use. If you have chest pain, shortness of breath, fever, calf pain, back pain, severe nausea and vomiting, report to the emergency department immediately. Stand Alone Forms: Nursing Discharge Form Referrals: Tania Shahid MD [Primary Care Provider] - 10/19/18 8:20 am Activity:: Activity as Tolerated Equipment/Supplies:: No Equipment Needed Diet:: As Tolerated Discharge Orders Discharge Orders: Discharge Order (Routine); Ordered 10/10/18 Ordered By: Philly Portillo Discharge Data Discharge Date/Time-TO BE ENTERED AT DEPARTURE: 10/10/18 16:38 Exam Narrative Exam Narrative: General: Awake and alert, laying in stretcher with head of bed elevated, in no acute distress. HEENT: Normocephalic, atraumatic, pupils equal round, extraocular movements intact, mucous membranes slightly dry. Neck: Supple, no JVD. Cardiovascular: Heart has regular rate, tachycardic, slight systolic murmur grade 1/6 appreciated near LSB Respiratory: Respirations even and unlabored, lung sounds clear to auscultation throughout. Abdomen: Normoactive bowel sounds x4 quadrants, soft, nontender on palpation, no masses appreciated. Extremities: Left lower extremity with edema along entire leg, erythema and ecchymosis to left medial knee and thigh. Area surrounding the left knee warm to touch. Left calf edematous, nontender on palpation, no clonus. Pedal pulses palpable bilaterally. Neurological: No focal deficits. DS: Data Vitals/I&O Vitals and I&O: Vital Signs Temperature 37.0 C 10/10/18 11:35 Temperature Source Tympanic 10/10/18 11:35 Pulse 96 H 10/10/18 11:35 Pulse Rhythm Regular 10/10/18 09:00 Pulse 112 H 10/07/18 15:31 Respiratory Rate 18 10/10/18 11:35 Respiratory Effort Non-Labored 10/10/18 09:00 Respiratory Depth Normal 10/10/18 09:00 Respiratory Pattern Normal 10/10/18 09:00 Blood Pressure 151/87 H 10/10/18 11:35 Blood Pressure Mean 92 10/07/18 15:31 Pulse Oximetry 95 10/10/18 11:35 Oxygen Delivery Method Room Air 10/10/18 11:35 Oxygen Flow Rate 0 10/10/18 11:35 Pain Level 2 10/10/18 12:37 Comment 10/09/18 04:25 Intake & Output 10/09/18 10/10/18 10/10/18 23:59 11:59 23:59 Intake Total 840 / 2892.083 250 / 1090 840 / 1090 Balance 840 / 1292.083 250 / 1090 840 / 1090 Weight 92.4 kg Intake: IV 300 / 1902.083 Oral 540 / 990 250 / 1090 840 / 1090 Other: Urine Color Yellow Urine Appearance Clear Clear Urine Odor None Comment pt gets up AD WEST to void. pt voiding ad west in room; urine not assessed by RN Stool Size Large Stool Characteristics Formed Voiding Methods Toilet Toilet Completed studies during hospitalization [Text1]: Exam(s) a CT:CT head wo SYMPTOMS/DIAGNOSIS: SLURRED SPEECH, ? ACUTE CVA NONCONTRAST HEAD CT: There are no prior comparison exams. No intracranial hemorrhage, mass or infarct is seen. The ventricles are normal in size. There is no visible atrophy. There are no abnormal areas of low attenuation in the white matter. No skull fracture is seen. There is mild mucosal thickening of the ethmoid sinuses. IMPRESSION: Negative head CT. [id number]: Total DLP = 0.00 mGy-cm Ordered By: Dinorah Allen DO a RAD:XR chest 2V PA & lateral a RAD:XR knee LT 4V AP,lat,cindy,pat SYMPTOMS/DIAGNOSIS: SLURRED SPEECH, ? ACUTE DISEASE, S/P LT KNEE REPLACEMENT, ASSESS FOR OSTEO LEFT KNEE: There is gauze over the anterior knee. Comparison is made with [id number]. The patient is status post left knee prosthesis since the previous exam. No fracture or hemarthrosis is seen. There is mild spurring at the quadriceps insertion on the patella. IMPRESSION: Anterior soft tissue swelling and soft tissue wound. No acute bony abnormality. PA AND LATERAL CHEST: There are no prior comparison exams. The heart size is within normal limits for projection. The lungs appear clear. No infiltrate, effusion or pulmonary edema is seen. There are no thoracic compression fractures or evidence of pneumothorax. IMPRESSION: No acute abnormality. Exam(s) a RAD:XR chest 2V PA & lateral a RAD:XR knee LT 4V AP,lat,cindy,pat SYMPTOMS/DIAGNOSIS: SLURRED SPEECH, ? ACUTE DISEASE, S/P LT KNEE REPLACEMENT, ASSESS FOR OSTEO LEFT KNEE: There is gauze over the anterior knee. Comparison is made with [id number]. The patient is status post left knee prosthesis since the previous exam. No fracture or hemarthrosis is seen. There is mild spurring at the quadriceps insertion on the patella. IMPRESSION: Anterior soft tissue swelling and soft tissue wound. No acute bony abnormality. PA AND LATERAL CHEST: There are no prior comparison exams. The heart size is within normal limits for projection. The lungs appear clear. No infiltrate, effusion or pulmonary edema is seen. There are no thoracic compression fractures or evidence of pneumothorax. IMPRESSION: No acute abnormality. CT Angiography Chest With Contrast EXAM DATE/TIME: 10/07/2018 3:44 PM CLINICAL HISTORY: 58 years old, female; Signs and symptoms; Patient HX: Tachycardic, 3 days post-op total knee replace; Additional info: R/O pe TECHNIQUE: Imaging protocol: Axial computed tomographic angiography images of the chest with intravenous contrast using CT angiography protocol. Coronal and sagittal reformatted images were created and reviewed. 3D rendering: MIP reconstructed images were created and reviewed. COMPARISON: CR XR CHEST 2V PA LATERAL 10/07/2018 11:37 AM FINDINGS: Pulmonary arteries: Normal. No pulmonary emboli. Aorta: There is moderate atherosclerosis of the thoracic aorta. Lungs: There are patchy areas of groundglass opacity scattered throughout both lungs. This is most prominent in the upper lobes. Pleural space: There no pleural effusions. Heart: Normal. No cardiomegaly. No pericardial effusion. Lymph nodes: Unremarkable. No enlarged lymph nodes. Bones/joints: Unremarkable. No acute fracture. Soft tissues: Unremarkable. Left lobe of the thyroid gland is markedly enlarged and contains a 1.7 cm hypodensity posteriorly within the gland. IMPRESSION: #1 no evidence of pulmonary emboli. However there is patchy areas of groundglass opacity throughout the lungs. This is not the typical appearance of postoperative atelectasis. These may be scattered areas of pneumonia. Clinical correlation suggested. #2 findings most likely representing thyroid goiter. Ultrasound the thyroid gland is suggested on on emergency basis. Exam(s) a CT:CT chest PE CTA SYMPTOM/DIAGNOSIS: TACHYCARDIA, S/P KNEE REPLACEMENT, ? PE PE CHEST CT: CT angiography was performed with multi slice acquisition and multi planar and 3D reconstruction. CT scan of the chest was performed according to the pulmonary embolus protocol. There is no evidence of a pulmonary embolus. The thoracic aorta is intact. There is atherosclerosis present. No aneurysm or dissection is present. Heart size is within normal limits. No significant pericardial effusion is seen. No evidence of right ventricular dysfunction is present. Coronary artery calcifications are present. No pleural effusions, pneumothoraces or significant thoracic adenopathy is present. There are bilateral diffuse ground glass opacities throughout the lungs, most prominent at the upper lobes and the right lower lobe. The tracheobronchial tree is unremarkable. The thyroid gland is enlarged and heterogeneous, particu larly the left lobe which appears to extend into the upper mediastinum. There is a rightward deviation of the trachea secondary to the enlarged left lobe of the thyroid gland. Degenerative changes are seen in the spine. IMPRESSION: 1. No evidence of a pulmonary embolus, thoracic aortic dissection or aneurysm. 2. Bilateral diffuse ground glass opacities suspicious for pneumonia. Atelectasis is considered less likely. 3. Enlarged thyroid gland, particularly the left lobe which is heterogeneous and extends into the upper mediastinum. Non emergent thyroid ultrasound should be considered for further evaluation. Exam(s) a US:US lower extremity venous LT SYMPTOM/DIAGNOSIS: RECENT ORTHO SURGERY, SWELLING, PAIN, ? DVT LEFT LOWER EXTREMITY ULTRASOUND: The deep veins of the left lower extremity show normal compression, augmentation and color flow. No evidence of a deep venous thrombus is identified. The saphenofemoral junction appears grossly unremarkable. There is mild edema seen in the lower extremity. IMPRESSION: No evidence of a left lower extremity deep venous thrombus. EXAM: US Duplex Left Lower Extremity Veins, Limited EXAM DATE/TIME: 10/07/2018 5:24 PM CLINICAL HISTORY: 58 years old, female; Pain and signs and symptoms; Swelling (edema) of limb; Lower extremity, left; Other: Recent left total knee replacement; Prior surgery; Surgery date: 3-7 days post-operative; Additional info: R/O pe TECHNIQUE: Imaging protocol: Real-time Duplex ultrasound of the Left Lower Extremity with 2-D minor scale, color Doppler flow and spectral waveform analysis. Limited exam focused on the left lower extremity veins. COMPARISON: No relevant prior studies available. FINDINGS: Left deep veins: Unremarkable. The common femoral, femoral, proximal profunda femoral and popliteal veins are patent without thrombus. Normal Doppler waveforms. Normal compressibility and/or augmentation response. Left superficial veins: Unremarkable. Saphenofemoral junction is patent without thrombus. Soft tissues: Unremarkable. IMPRESSION: No acute findings. No evidence of deep vein thrombosis. Exam(s) EXAM: XR Chest, 2 Views EXAM DATE/TIME: 10/09/2018 10:05 AM CLINICAL HISTORY: 58 years old, female; Signs and symptoms; Cough and other: Crackles; Patient HX: Partial knee replacement 10 days ago TECHNIQUE: Imaging protocol: XR of the chest, 2 views. COMPARISON: CR XR CHEST 2V PA LATERAL 10/07/2018 11:37 AM FINDINGS: Lungs: Airspace disease in the lateral right lung base most consistent with pneumonia. Pleural space: Unremarkable. No pleural effusion. No pneumothorax. Heart/Mediastinum: Unremarkable. No cardiomegaly. Bones/joints: Mild dextroscoliosis. Moderate thoracic spondylosis. IMPRESSION: Airspace disease in the lateral right lung base most consistent with pneumonia. Exam(s) a RAD:XR chest 2V PA & lateral SYMPTOMS/DIAGNOSIS: COUGH, CRACKLES CHEST: Frontal and lateral views. Comparison 10/07/17. The heart size and pulmonary vasculature are within normal limits. There are air space opacities in the right upper and right lower lobes suspicious for pneumonia. The left lung appears clear. No gross effusions or pneumothoraces are identified. Degenerative changes are seen in the spine. IMPRESSION: Right upper and right lower lobe infiltrates suspicious for pneumonia. Exam(s) a US:US thyroid SYMPTOMS/DIAGNOSIS: GOITER NOTED ON CTA CHEST THYROID ULTRASOUND: Comparison CT scan of the chest is 10/07/18. The right lobe measures 4 x 1.3 x 1.6 cm. It is heterogeneous with normal blood flow. There are at least three discrete masses seen within the right lobe, the largest is seen inferiorly and has cystic and solid qualities with mild internal vascularity. There is a complex 0.5 cm mass in the upper pole, which shows mild vascularity. The left lobe measures 5.7 x 2.6 x 2.5 cm. There are multiple nodules present. The largest is a mostly solid mass with increased blood flow in the inferior pole, which measures 2.3 x 2 x 2.3 cm. There are three complex vascular masses in the upper and mid pole, the largest measures 2.5 cm and is located in the mid pole. IMPRESSION: Multinodular thyroid gland, the next largest nodule is mostly solid with internal blood flow and is located in the inferior pole of the left lobe and measures 2.3 x 2 x 2.3 cm. Followup as clinically appropriate. This might include nuclear medicine examination or biopsy. Labs on day of discharge: Labs from last 24 hours 10/10/18 10/10/18 06:36 06:36 WBC 6.77 RBC 3.33 L Hgb 10.1 L Hct 31.0 L MCV 93.1 MCH 30.3 MCHC 32.6 RDW 12.9 Plt Count 313 MPV 9.3 Immature Gran % 0.6 Neutrophils % 62.1 Lymphocytes % 17.0 Monocytes % 10.8 Eosinophils % 8.9 Basophils % 0.6 Absolute Neutrophils 4.21 Absolute Lymphocytes 1.15 L Absolute Monocytes 0.73 H Absolute Eosinophils 0.60 Absolute Basophils 0.04 Sodium 139 Potassium 3.8 Chloride 101 Carbon Dioxide 30.4 Anion Gap 7.6 BUN 8 Creatinine 0.66 Estimated GFR/1.73 m2 >= 60.00 Glucose 97 Calcium 9.0 Magnesium 2.3 Preliminary micro results at discharge 10/09/18 12:27 Blood Culture - Preliminary Blood NO GROWTH 24 HOURS 10/09/18 12:27 Blood Culture - Preliminary Blood NO GROWTH 24 HOURS [facility] Medical History Allergic rhinitis (Acute) Hyperlipidemia (Acute) Osteoarthritis of knees, bilateral (Acute) Anxiety (Chronic) Depression (Chronic) Hypothyroidism (Chronic) Surgical History S/P total knee arthroplasty (Acute) Arthroscopy (~08/2014) Colonoscopy - IV Sedation (01/13/13) Thyroid Trigger Finger release Family History Mother Essential hypertension Hyperlipidemia Neoplasm Stroke Father Diabetes Essential hypertension Heart disease Hyperlipidemia Neoplasm Grandfather Heart disease Grandfather No problems noted. Grandmother Diabetes Hyperlipidemia Grandmother No problems noted. Brother No problems noted. Son No problems noted. Daughter No problems noted. Daughter No problems noted. Social History Smoking/Tobacco Use Status: Former Tobacco Use Alcohol Intake: current Alcohol Intake frequency: a few times a month Drug use: Never Substance use type: does not use Household members: other Details: 3 current occupation: [employer] Pets and animals: No What type of physical activity do you participate in: none Ericka/Yazdanism: Islam Special ericka needs: No Documented by User: Griffin Monaco MD 10/11/18 09:38 Discharge Plan Disposition Patient Disposition: HOME Condition: Improving Discharge Details Reason For Visit: HYPONATREMIA, VOMITING, INCREASED FLUID INTAKE, S/ Admit Date/Time: 10/08/18 12:51 Admit Provider: Dangelo Benitez Attending Provider: Dangelo Benitez [facility] Hospital Course: Vomiting, slurred speech, PEREZ, L knee pain. Narrative: Alena Gamez is a very pleasant 58-year-old female with a past medical history significant for hypothyroidism, hyperlipidemia, anxiety and depression, and recent left knee replacement 3 days ago at [facility]. She presented to the emergency room after having multiple vomiting episodes at home as well as a headache and slurred speech. In the emergency department, she was noted to be in sinus tachycardia on EKG, note was made of less than [address] depression in V4 through V6 but no acute ST elevation. Her troponin was less than 0.02 x2. She denied chest pain/pressure, palpitations. She had a chest x-ray that was negative, left knee x-ray negative, she had a head CT that was negative. Her labs were notable for hyponatremia with a sodium of 125, her chloride was also low at 85, magnesium low at 1.4, her hemoglobin was low at 11.4 and her hematocrit was 32.8. She had no leukocytosis. Her d-dimer was elevated at 2679, she was referred for a CTA chest prior to transfer to the med/surg floor. An order was placed for LLE ultrasound as well. When she was seen in the emergency department, she was no longer experiencing nausea or vomiting. She reported taking gabapentin and oxycodone on an empty stomach at home. She was taking 10 mg of oxycodone per dose. She reported that her nausea and vomiting began 1 day ago, she denied hematemesis, she vomited approximately 3 times prior to her presentation to the emergency department today. She also reported constipation, she has not had a bowel movement in 4 days. As above, she denied chest pain/pressure, palpitations, she denies shortness of breath, coughing and wheezing at the present time. She was no longer experiencing speech difficulty. She reported that her left lower extremity has had significant edema, erythema and ecchymosis. She has been getting around her house okay using a walker, she has been more sedentary than usual due to her recent left knee surgery. Once her CTA chest and left lower extremity ultrasound are complete, she will be admitted to the [facility] floor for further evaluation and management. Over the course of her stay she was found to have RLL pneumonia by CXR slight fever on 10/08 and sputum production. During surgery she had a spinal block at [facility] [place] putting her at low risk for HCAP and VAP, she did not stay overnight it was a same day surgery. She was started on rocephin and azithromycin IV. Today she is looking well, lung sounds clear, not requiring oxygen. Afebrile with a normal white count. Blood cultures with no growth. Transitioned to PO azithromycin and cefpodoxime. She will finish a course at home. Her tachycardia has resolved, believed to be in setting of infection. She will need follow up for her thyroid after u/s revealed thyroid nodules Multinodular thyroid gland, the next largest nodule is mostly solid with internal blood flow and is located in the inferior pole of the left lobe and measures 2.3 x 2 x 2.3 cm. Followup as clinically appropriate. This might include nuclear medicine examination or biopsy. Recommendation for follow up was spoken at length with the patient. She understands she will need to follow up. She has a history of her right sided thyroid gland removed in high school per her. Follow up with ortho per scheduled, she will be given a couple of tramadol for severe pain otherwise advised to take ibuprofen and tylenol for pain control with Ice to affected limb. 1) CAP (community acquired pneumonia): She had a bout of a coughing fit yesterday with a small amount of sputum production and states feelings of a tickle in lungs and like she has to cough something up. CXR ordered revealing Right lower lobe pneumonia. Day 2 of azithromycin and rocephin. Blood cultures NGTD sputum culture was not obtained. Mucinex ordered and tessalon pearbenjamín for cough, continue incentive spirometery. Room air oxygen 96%, Lung sounds with clear, no wheezing or rhonchi at this time. Afebrile with normal white count. (2) Hyponatremia: Resolved. sodium 138 today. IVF dcd, continue to monitor and replete as necessary. (3) S/P total knee arthroplasty: Status post left total knee arthroplasty at [facility] on 10/04/2018, same day surgery. Recent u/s to r/o dvt negative for thrombus. Swelling to the left leg with minimal pain, continue PT/OT ibuprofen 600 mg for pain, and tramadol continue to monitor. (4) Nausea & vomiting: Resolved continue to assess, zofran as needed (5) Tachycardia: Resolved most likely tachy in setting of infection (6) Acid reflux: Switched to PO protonix BID (7) Hypothyroidism: TSH historically within normal limits. Continue home dose of levothyroxine at 12.5 mcg daily. TSH with 0.87. T4 in normal range. U/S showing nodules that will need follow up as an outpatient. Spoke at length importance of follow up with patient. (8) Depressive disorder: Continue Effexor 75 mg p.o. twice daily. (9) Anxiety: Continue home Klonopin as needed. (10) Hypomagnesemia: Level 2.1 continue to monitor and replete as necessary. (11) Constipation: Resolved BM after mag citrate. (12) DVT prophylaxis: Subcutaneous Lovenox. (13) Discharge planning issues: She is a full code. We will place PT consult as she had a left total knee arthroplasty 5 days ago. Home Meds and New Rx's Prescriptions: New cefpodoxime 200 mg Tablet 200 mg PO Q12H Qty: 16 RF: 0 azithromycin 250 mg Tablet 250 mg PO DAILY@1200 Qty: 3 RF: 0 tramadol 50 mg Tablet 25 - 50 mg PO Q6H PRN PRN (Reason: pain (scale score 7-10)) Qty: 10 RF: 0 docusate sodium [Colace] 100 mg Capsule 100 mg PO TID Qty: 30 RF: 0 ibuprofen [IBU] 600 mg Tablet 600 mg PO Q6H Qty: 30 RF: 0 guaifenesin [Mucinex] 600 mg Tablet Extended Release 12hr 600 mg PO BID Qty: 10 RF: 0 Continued calcium carbonate 600 mg calcium (1,500 mg) tablet 600 mg PO BID Qty: 180 RF: 3 cholecalciferol (vitamin D3) [Vitamin D3] 2,000 unit capsule 2,000 unit PO DAILY Qty: 90 RF: 3 venlafaxine 75 MG tablet 75 mg PO BID Qty: 180 RF: 3 meloxicam [Mobic] 15 MG tablet 15 mg PO DAILY PRNQty: 30 RF: 0 clonazepam [Klonopin] 0.5 MG tablet 1 tab PO BID PRN Qty: 25 RF: 1 loratadine 10 MG tablet 10 mg PO DAILY Qty: 30 RF: 1 oxybutynin chloride 5 MG tablet extended release 24hr 5 mg PO DAILY Qty: 90 RF: 3 rosuvastatin [Crestor] 10 mg tablet 10 mg PO DAILY Qty: 90 RF: 4 levothyroxine 25 mcg tablet 12.5 mcg PO DAILY Qty: 90 RF: 1 aspirin 81 mg Tablet,Chewable 81 mg PO DAILY RF: 0 Discharge Instructions Instructions: Dehydration (GEN), Pain Management After Surgery (GEN), Narcotic Pain Management (GEN), Opioid Pain Management (GEN) Additional Instructions: Follow up with your PCP in one week. Recommend getting your thyroid examined soon. Follow up with Ortho. Take Ibuprofen and tylenol for mild to moderate pain, take tramadol for severe pain Take all antibiotics as prescribed. Eat yogurt daily x 1 month or take probiotic for antibiotic use. If you have chest pain, shortness of breath, fever, calf pain, back pain, severe nausea and vomiting, report to the emergency department immediately. Stand Alone Forms: Nursing Discharge Form Referrals: Tania Shahid MD [Primary Care Provider] - 10/19/18 8:20 am Activity:: Activity as Tolerated Equipment/Supplies:: No Equipment Needed Diet:: As Tolerated Discharge Orders Discharge Orders: Discharge Order (Routine); Ordered 10/10/18 Ordered By: Philly Portillo Discharge Data Discharge Date/Time-TO BE ENTERED AT DEPARTURE: 10/10/18 16:38 [facility] Medical History Allergic rhinitis (Acute) Hyperlipidemia (Acute) Osteoarthritis of knees, bilateral (Acute) Anxiety (Chronic) Depression (Chronic) Hypothyroidism (Chronic) Surgical History S/P total knee arthroplasty (Acute) Arthroscopy (~08/2014) Colonoscopy - IV Sedation (01/13/13) Thyroid Trigger Finger release Family History Mother Essential hypertension Hyperlipidemia Neoplasm Stroke Father Diabetes Essential hypertension Heart disease Hyperlipidemia Neoplasm Grandfather Heart disease Grandfather No problems noted. Grandmother Diabetes Hyperlipidemia Grandmother No problems noted. Brother No problems noted. Son No problems noted. Daughter No problems noted. Daughter No problems noted. Social History Smoking/Tobacco Use Status: Former Tobacco Use Alcohol Intake: current Alcohol Intake frequency: a few times a month Drug use: Never Substance use type: does not use Household members: other Details: 3 current occupation: [employer] Pets and animals: No What type of physical activity do you participate in: none Ericka/Yazdanism: Islam Special ericka needs: No
[2018-10-10 16:02] VITALS: BP 155/74; PULSE 104; RESP 18; TEMP 37.3; O2SAT 98
[2018-10-10 16:05] VITALS: PULSE 106
--- NOTE | 2018-10-10 18:09 | PDOC.CMDIS ---
LACE Index Scoring Tool - Questions: Length of Stay (in days): 2 Acuity (Admit via E.D.?): Yes E.D. Visits: 1 - Answers: Total Score: 6 Risk of Readmission: Low Risk Care Management Discharge Reason for Hospitalization: Hyponatremia, Vomiting, Increased fluid intake, S/P L TKA three days ago at [facility] Discharge Plan: Alena will return home with resumption of VNA PT to support recovery post TKA. She will follow up with her PCP and plan of care as prescribed. She will transport home via private vehicle. Patient/Family Education Needs: Review discharge instructions, discuss Ask Me Three. Services Needed at Discharge: Home Health Care Services (PT: resume)
--- NOTE | 2018-10-10 18:12 | CMDISCH_ITS ---
LACE Index Scoring Tool - Questions: Length of Stay (in days): 2 Acuity (Admit via E.D.?): Yes E.D. Visits: 1 - Answers: Total Score: 6 Risk of Readmission: Low Risk Care Management Discharge Reason for Hospitalization: Hyponatremia, Vomiting, Increased fluid intake, S/P L TKA three days ago at [facility] [place] Discharge Plan: Alena will return home with resumption of VNA PT to support recovery post TKA. She will follow up with her PCP and plan of care as prescribed. She will transport home via private vehicle. Patient/Family Education Needs: Review discharge instructions, discuss Ask Me Three. Services Needed at Discharge: Home Health Care Services (PT: resume)
== END 2018-10-10 16:38 | disposition home or self-care (01) | DRG 640 ==
LOC: ER 15:17 → MS 10-08 06:53
PROVIDERS: Nurse Practitioner; Nurse Practitioner Family; Admitting Provider Family Medicine; Emergency Provider Physician Assistant; PCP Family Medicine; Visit Provider Internal Medicine
DX: E87.1 Hypo-osmolality and hyponatremia (principal); J18.1 Lobar pneumonia, unspecified organism; R11.2 Nausea with vomiting, unspecified; Z47.1 Aftercare following joint replacement surgery; Z96.652 Presence of left artificial knee joint; R00.0 Tachycardia, unspecified; R79.1 Abnormal coagulation profile; E04.2 Nontoxic multinodular goiter; K59.03 Drug induced constipation; T40.2X5A Adverse effect of other opioids, initial encounter; E03.9 Hypothyroidism, unspecified; K21.9 Gastro-esophageal reflux disease without esophagitis; F41.8 Other specified anxiety disorders; E83.42 Hypomagnesemia; R47.81 Slurred speech; R51 Headache; K11.7 Disturbances of salivary secretion; K59.00 Constipation, unspecified; E78.5 Hyperlipidemia, unspecified; R94.31 Abnormal electrocardiogram [ECG] [EKG]
CPT/HCPCS: 36410; 36415; 71275; 80048; 80053; 85027; 87040; 93005; 96361; 96374; 96375; 97110; 97162; 97530; 99219; 99226; 99233; 99239; 99285; J1650; 70450; 71046; 73564; 76536; 81003; 81015; 83735; 84295; 84439; 84443; 84484; 85025; 85379; 93010; 93971; G0378; J0456; J0696; J1885; J2270; J2405; J2543; J3490

== ENCOUNTER 2018-10-19 09:49 | Outpatient (CLI) | payer MEDICAID, SELFPAY ==
[2018-10-19 13:07] LABS: HCT 38.6 % (36.0-46.0); HGB 12.5 g/dL (12.0-15.5); Mean Corp. HGB Concentration 32.4 g/dL (32.0-36.0); Mean Corpuscular Hemoglobin 30.2 pg (27.0-33.0); Mean Corpuscular Volume 93.2 fL (80-95); Mean Platelet Volume 8.8 fL (8.0-11.0); RBC 4.14 m/cumm (4.00-5.20); RBC Distribution Width 13.1 % (11.7-14.6); White Blood Cell Count 10.37 k/cumm (4.4-10.8)
[2018-10-19 14:01] LABS: Platelet Count 584 x1000/uL (130-400)
[2018-10-19 14:28] LABS: Iron 48 ug/dL (50-175); Total Iron Binding Capacity 326 ug/dL (250-450); Transferrin Sat 15 % (15-50)
[2018-10-19 14:45] LABS: Ferritin 225 ng/mL (8-388)
[2018-10-19 21:13] LABS: T3, Total 158 ng/dl (97-169)
== END 2018-10-19 10:09 ==
PROVIDERS: PCP Family Medicine; Visit Provider Family Medicine
DX: D64.9 Anemia, unspecified (principal); E03.9 Hypothyroidism, unspecified
CPT/HCPCS: 36415; 85027; 82728; 83540; 83550; 84480

== ENCOUNTER 2019-03-02 01:04 | Outpatient (CLI) | payer MEDICAID, SELFPAY ==
--- NOTE | 2019-03-02 11:15 | DI.MAMMO_ITS ---
EXAM: MG MAMMO SCREENING CLINICAL HISTORY: screening, Z12.39. TECHNIQUE: Bilateral full field digital CC and MLO mammographic images were obtained with 3D tomosy nthesis and utilizing computer aided detection (CAD). COMPARISON: Comparison is made with previous images. FINDINGS: The breast tissue is heterogeneously radiodense which lowers the sensitivity of the study. There is no dominant mass. There are no suspicious calcifications and there has been no significant interval c hange compared with previous images. IMPRESSION: No evidence of malignancy, category 1. Annual screening mammography is recommended. Breast density, category C. BI-RADS Cat 1 - Negative. Breast Density - Category C - Heterogeneously dense.
== END 2019-03-02 01:24 ==
PROVIDERS: PCP Family Medicine; Visit Provider Family Medicine
DX: Z12.31 Encounter for screening mammogram for malignant neoplasm of breast (principal)
CPT/HCPCS: 77063; 77067

== ENCOUNTER 2019-06-28 07:00 | Outpatient (CLI) | payer MEDICAID, SELFPAY ==
[2019-06-28 12:59] LABS: HCT 43.7 % (36.0-46.0); HGB 14.6 g/dL (12.0-15.5); Mean Corp. HGB Concentration 33.4 g/dL (32.0-36.0); Mean Corpuscular Volume 89.9 fL (80-95); Mean Platelet Volume 9.5 fL (8.0-11.0); Platelet Count 280 x1000/uL (130-400); RBC 4.86 m/cumm (4.00-5.20); RBC Distribution Width 12.7 % (11.7-14.6); White Blood Cell Count 5.34 k/cumm (4.4-10.8)
[2019-06-28 13:29] LABS: Iron 55 ug/dL (50-170); Total Iron Binding Capacity 331 ug/dL (250-450); Transferrin Sat 17 % (15-50)
[2019-06-28 13:42] LABS: Ferritin 98 ng/mL (8-252); TSH 1.14 uIU/mL (0.36-3.74)
== END 2019-06-28 07:20 ==
PROVIDERS: PCP Family Medicine; Visit Provider Family Medicine
DX: E61.1 Iron deficiency (principal); E03.9 Hypothyroidism, unspecified
CPT/HCPCS: 36415; 85027; 82728; 83540; 83550; 84443

== ENCOUNTER 2020-05-31 01:44 | Outpatient (CLI) | payer MEDICAID, SELFPAY ==
[2020-05-31 12:46] LABS: Hemoglobin A1C 5.6 % (<5.7)
[2020-05-31 12:56] LABS: Anion Gap 5.7 mmol/L (3-11); BUN 12 mg/dL (7-18); CO2 31.3 mmol/L (21.0-32.0); CREATININE 0.81 mg/dL (0.55-1.02); Calcium 9.1 mg/dL (8.5-10.1); Calculated LDL 150 mg/dL (<100); Chloride 99 mmol/L (98-107); Cholesterol 220 mg/dL (<200); Glucose 100 mg/dL (74-106); HDL Cholesterol 51 mg/dL (40-60); Potassium 4.4 mmol/L (3.5-5.1); Sodium 136 mmol/L (136-145); TSH 1.23 uIU/mL (0.36-3.74); Triglyceride 95 mg/dL (<150)
[2020-05-31 13:15] LABS: FREE T4 0.99 ng/dL (0.76-1.46)
== END 2020-05-31 02:04 ==
PROVIDERS: PCP Family Medicine; Visit Provider Nurse Practitioner Family
DX: E03.9 Hypothyroidism, unspecified (principal); E78.5 Hyperlipidemia, unspecified
CPT/HCPCS: 36415; 80048; 80061; 83036; 84439; 84443

== ENCOUNTER 2020-06-12 01:24 | Outpatient (CLI) | payer MEDICAID, SELFPAY ==
--- NOTE | 2020-06-12 07:30 | DI.MAMMO_ITS ---
EXAM: MG MAMMO SCREENING CLINICAL HISTORY: screening,Z12.39 TECHNIQUE: Mammograms were interpreted according to the usual protocol including computer analysis w [employer] CAD system, tomosynthesis and C-view imaging. COMPARISON: FINDINGS: The breasts are heterogeneously dense. No dominant mass or clumped microcalcification is identified in either breast. The current examination is compared with previous examinations including February 2019 and there has been no gross interval change in appearance in comparison with the prior studies. IMPRESSION: No specific evidence of malignancy at this time. Routine screening examinations are suggested at yea rly intervals due to the family history of breast carcinoma. BI-RADS Category 1 - Negative Breast Density - Category C - Heterogeneously dense
== END 2020-06-12 01:44 ==
PROVIDERS: PCP Family Medicine; Visit Provider Nurse Practitioner Family
DX: Z12.31 Encounter for screening mammogram for malignant neoplasm of breast (principal); Z80.3 Family history of malignant neoplasm of breast
CPT/HCPCS: 77063; 77067

== ENCOUNTER 2020-08-08 02:00 | Outpatient (CLI) | payer MEDICAID, SELFPAY ==
--- NOTE | 2020-08-08 07:45 | DI.RAD_ITS ---
EXAM: XR KNEE RT 3V AP,LAT,ROMULO CLINICAL HISTORY: pain right knee,. TECHNIQUE: 2D digital imaging was performed. COMPARISON: CR LEFT KNEE 3 VIEW COMPLETE from 12/17/2017 FINDINGS: There is no evidence of fracture but there is a moderate-sized joint effusion. There is advanced idalmis rowing of the medial compartment with [id number] apposition and marginal osteophytes. There is rel ative sparing of the lateral compartment. Mild degenerative changes are also evident in the patellof emoral compartment. No osseous lesions. IMPRESSION: DATA REPOSITORY: RADIATION DOSE DELIVERED:
== END 2020-08-08 02:01 ==
LOC: DI 02:00
PROVIDERS: PCP Family Medicine; Visit Provider Family Medicine
DX: M25.561 Pain in right knee (principal); M25.461 Effusion, right knee
CPT/HCPCS: 73562

== ENCOUNTER 2020-12-19 02:32 | Outpatient (CLI) | payer MEDICAID, SELFPAY ==
[2020-12-19 12:36] LABS: Calculated LDL 169 mg/dL (<100); Cholesterol 255 mg/dL (<200); HDL Cholesterol 53 mg/dL (40-60); Triglyceride 165 mg/dL (<150)
== END 2020-12-19 02:33 | disposition home or self-care (01) ==
LOC: LOS 02:32
PROVIDERS: PCP Family Medicine; Visit Provider Family Medicine
DX: E83.42 Hypomagnesemia (principal); E78.5 Hyperlipidemia, unspecified
CPT/HCPCS: 36415; 80061; 83735

== ENCOUNTER 2021-04-03 10:30 | Outpatient (CLI) | payer MEDICAID, SELFPAY ==
--- NOTE | 2021-04-03 10:15 | DI.RAD_ITS ---
Exam(s) XR STANDING ALIGNMENT EXAM: XR STANDING ALIGNMENT CLINICAL HISTORY: pre-operative. TECHNIQUE: 2D digital imaging was performed. COMPARISON: No exams were available for comparison FINDINGS: There is a left knee prosthesis. There is advanced narrowing of the medial compartment of the opposi te-right knee. Lateral compartment of the right knee appears unremarkable. Hips appear unremarkable . Ankles unremarkable. No osseous lesions. Sacroiliac joints unremarkable. IMPRESSION: Significant narrowing of the medial compartment of the right knee and marginal osteophytes in the med ial compartment. Left knee prosthesis appears satisfactory. DATA REPOSITORY: RADIATION DOSE DELIVERED:
--- NOTE | 2021-04-03 10:15 | DI.RAD_ITS ---
Exam(s) XR KNEE RT 1V EXAM: XR KNEE RT 1V CLINICAL HISTORY: pre-operative. TECHNIQUE: 2D digital imaging was performed. COMPARISON: CR XR STANDING ALIGNMENT from 04/03/2021 FINDINGS: Single lateral view of the right knee reveals no obvious fractures. There is a prominent joint effus ion in the suprapatellar bursa event. Degenerative changes are noted. No osseous lesions. IMPRESSION: DATA REPOSITORY: RADIATION DOSE DELIVERED:
== END 2021-04-03 10:31 | disposition home or self-care (01) ==
LOC: DIORS 10:30
PROVIDERS: PCP Family Medicine; Referring Provider Family Medicine; Visit Provider Physician Assistant Surgical
DX: M25.561 Pain in right knee (principal); M17.11 Unilateral primary osteoarthritis, right knee; M25.461 Effusion, right knee; Z96.652 Presence of left artificial knee joint
CPT/HCPCS: 73560; 77073

== ENCOUNTER 2021-04-11 00:36 | Outpatient (CLI) | payer MEDICAID, SELFPAY ==
--- NOTE | 2021-04-11 06:45 | DI.DEXA_ITS ---
Exam(s) XR DEXA BONE DENSITY W/WO DARREN EXAM: XR DEXA BONE DENSITY W/WO DARREN CLINICAL HISTORY: osteopenia,M85.80 TECHNIQUE: CT CT CHEST PE CTA from 10/07/2018 FINDINGS: DEXA scan was performed according to the usual protocol. Left hip scanning shows T-score -0.4 with left femoral neck T-score -1.4. Prior examination of December 2014 showed left hip T-score 0.5. Lumbar spine scanning shows T-score -1.5. Prior examination of 2014 showed lumbar T-score -1.2. Right forearm scanning shows T-score -0.2. IMPRESSION: Findings are consistent with osteopenia according to the WHO criteria. The lateral vertebral scanogram shows minimal apparent anterior wedging of the T12 vertebral body, th is was probably present on prior chest CT of September 2018. RADIATION DOSE DELIVERED: Total DLP
== END 2021-04-11 00:56 ==
PROVIDERS: PCP Family Medicine; Visit Provider Family Medicine
DX: M85.89 Other specified disorders of bone density and structure, multiple sites (principal)
CPT/HCPCS: 77080

== ENCOUNTER 2021-05-21 18:06 | Outpatient (REF) | payer MEDICAID, SELFPAY ==
--- NOTE | 2021-05-21 08:00 | PAPFT_PTH ---
PATIENT: Alena Gamez LOC: [facility] U#:[id number] AGE/SX: 61/F ROOM: RE05/21/[address]: Tania Shahid MD : 1960 BED: DIS: 05/21/2021 SPEC #: [id number] RECD: 05/21/21 18:28 STATUS: JOHNNA REQ #: [id number] LEONIDAS: 05/21/21 08:[address]: Tania Shahid DEPT: [facility] Cytology RECD BY: La Lopez ENTERED: 05/21/21 18:28 SP TYPE: PAPFT OTHR DR: Shane Enamorado Tissues: 1 - CX/ENDOCX FOR PAP SMEARS Procedures: PAP THIN PREP/UVM Screening Comments: [id number]
== END 2021-05-21 18:07 | disposition home or self-care (01) ==
LOC: LBN 18:06
PROVIDERS: PCP Family Medicine; Visit Provider Family Medicine
DX: Z12.4 Encounter for screening for malignant neoplasm of cervix (principal)
CPT/HCPCS: 88142

== ENCOUNTER 2021-06-04 03:03 | Outpatient (CLI) | payer MEDICAID, SELFPAY ==
[2021-06-04 09:08] LABS: ALT 30 U/L (14-59); AST 17 U/L (15-37); Albumin 4.2 g/dL (3.4-5.0); Alkaline Phosphatase 96 U/L (46-116); Anion Gap 5.3 mmol/L (3-11); BUN 12 mg/dL (7-18); Bilirubin, Total 0.5 mg/dL (0.2-1.0); CO2 32.7 mmol/L (21.0-32.0); CREATININE 0.8 mg/dL (0.55-1.02); Calcium 9.7 mg/dL (8.5-10.1); Calculated LDL 117 mg/dL (<100); Chloride 98 mmol/L (98-107); Cholesterol 196 mg/dL (<200); Glucose 93 mg/dL (74-106); HDL Cholesterol 55 mg/dL (40-60); Potassium 4.5 mmol/L (3.5-5.1); Sodium 136 mmol/L (136-145); TSH 1.49 uIU/mL (0.36-3.74); Total Protein 7.1 g/dL (6.4-8.2); Triglyceride 123 mg/dL (<150)
== END 2021-06-04 03:04 | disposition home or self-care (01) ==
LOC: LBO 03:03
PROVIDERS: PCP Family Medicine; Visit Provider Family Medicine
DX: E03.9 Hypothyroidism, unspecified (principal); E78.5 Hyperlipidemia, unspecified
CPT/HCPCS: 36415; 80053; 80061; 84443

== ENCOUNTER 2021-06-24 01:11 | Outpatient (CLI) | payer MEDICAID, SELFPAY ==
--- NOTE | 2021-06-24 07:00 | DI.MAMMO_ITS ---
Exam(s) MAMMO SCREENING EXAM: MAMMO SCREENING CLINICAL HISTORY: screening,z12.39 TECHNIQUE: Mammograms were interpreted according to the usual protocol including computer analysis w [facility] CAD system, tomosynthesis and C-view imaging. COMPARISON: FINDINGS: The breasts are heterogeneously dense. No dominant mass or clumped microcalcification is identified in either breast. The current examination is compared with previous examinations including May 2020 and there has been no gross interval change in appearance comparison with the previous studies. IMPRESSION: No specific evidence of malignancy at this time. Routine screening examinations are suggested at yea rly intervals in this age group according to the ACS ACR guidelines. BI-RADS Category 1 - Negative Breast Density - Category C - Heterogeneously dense
== END 2021-06-24 01:31 ==
PROVIDERS: PCP Family Medicine; Visit Provider Family Medicine
DX: Z12.31 Encounter for screening mammogram for malignant neoplasm of breast (principal); R92.8 Other abnormal and inconclusive findings on diagnostic imaging of breast
CPT/HCPCS: 77063; 77067

== ENCOUNTER 2021-09-03 15:01 | Outpatient (REF) | payer MEDICAID, SELFPAY | END 2021-09-03 15:02 | disposition home or self-care (01) | LOC: LBN 15:01 | PROVIDERS: PCP Family Medicine; Visit Provider Family Medicine | DX: N39.0 Urinary tract infection, site not specified (principal) | CPT/HCPCS: 87077; 87086; 87186 ==

== ENCOUNTER 2021-09-29 02:35 | Outpatient (CLI) | payer MEDICAID, SELFPAY ==
[2021-09-29 10:15] LABS: HCT 44.8 % (36.0-46.0); MCH 30.4 pg (27.0-33.0); MCHC 33.5 % (32.0-36.0); MCV 90.9 fL (80-95); MPV 9.1 fL (8.0-11.0); Platelet Count 323 10^3/uL (130-400); RBC 4.93 10^6/uL (3.93-5.22); RDW 13.2 % (11.7-14.6); RDW-SD 43.8 fL; WBC 8.04 10^3/uL (4.4-10.8)
[2021-09-29 11:26] LABS: Anion Gap 8.6 mmol/L (3-11); BUN 14 mg/dL (7-18); CO2 29.4 mmol/L (21.0-32.0); CREATININE 0.8 mg/dL (0.55-1.02); Calcium 9.5 mg/dL (8.5-10.1); Chloride 101 mmol/L (98-107); Glucose 106 mg/dL (74-106); Potassium 4.7 mmol/L (3.5-5.1); Sodium 139 mmol/L (136-145)
[2021-09-29 12:02] LABS: Source Nasal/Nares
[2021-09-29 17:27] LABS: COVID-19 PCR Negative (Negative)
== END 2021-09-29 02:36 | disposition home or self-care (01) ==
LOC: LBO 02:35
PROVIDERS: PCP Family Medicine; Visit Provider Student in an Organized Health Care Education/Training Program
DX: M25.561 Pain in right knee (principal); M17.11 Unilateral primary osteoarthritis, right knee; Z20.822 Contact with and (suspected) exposure to COVID-19; Z01.818 Encounter for other preprocedural examination; Z01.812 Encounter for preprocedural laboratory examination
CPT/HCPCS: 36415; 80048; 85027; 87635

== ENCOUNTER 2021-09-29 02:42 | Outpatient (CLI) | payer MEDICAID, SELFPAY | END 2021-09-29 02:43 | disposition home or self-care (01) | LOC: LBO 02:42 | PROVIDERS: PCP Family Medicine; Visit Provider Student in an Organized Health Care Education/Training Program ==

== ENCOUNTER 2021-09-29 02:55 | Outpatient (CLI) | payer MEDICAID, SELFPAY | END 2021-09-29 02:56 | disposition home or self-care (01) | LOC: LBO 02:55 | PROVIDERS: PCP Family Medicine; Visit Provider Family Medicine ==

== ENCOUNTER 2021-09-30 07:24 | Day surgery (SDC) | payer MEDICAID, SELFPAY ==
[2021-09-30] VITALS (9 sets, daily range): BP systolic 100–131; BP diastolic 43–96; PULSE 62–96; RESP 14–23; TEMP 36.1–37.2; O2SAT 93–99
--- NOTE | 2021-09-30 07:36 | W.PM.DSUDISC ---
Discharge Plan Disposition Patient Disposition: HOME Condition: Stable Discharge Details Reason For Visit: Right TKA Attending Provider: Paras Kc Primary Care Provider: Shane Enamorado Home Meds and New Rx's Prescriptions: New acetaminophen 500 mg capsule 1,000 mg PO Q8H PRN PRNQty: 90 0RF aspirin 81 mg tablet,delayed release (DR/EC) 81 mg PO BID Qty: 60 0RF celecoxib [Celebrex] 200 mg capsule 200 mg PO BID Qty: 60 0RF gabapentin 300 mg capsule 300 mg PO QHS Qty: 14 0RF oxycodone 5 mg tablet 5 mg PO Q4H PRNQty: 18 0RF Continued calcium carbonate 600 mg calcium (1,500 mg) tablet 600 mg PO BID Qty: 180 3RF cholecalciferol (vitamin D3) [Vitamin D3] 50 mcg (2,000 unit) capsule 2,000 unit PO DAILY Qty: 90 3RF levothyroxine 25 mcg tablet 12.5 mcg PO DAILY Qty: 90 3RF omeprazole 20 mg capsule,delayed release(DR/EC) 20 mg PO DAILY Qty: 90 3RF oxybutynin chloride 10 mg tablet extended release 24hr 10 mg PO DAILY Qty: 90 3RF Rx Instructions: take one tablet at night time rosuvastatin [Crestor] 20 mg tablet 20 mg PO DAILY Qty: 90 3RF venlafaxine 75 mg tablet 75 mg PO BID Qty: 180 3RF Rx Instructions: /take one tablet twice a day Discharge Instructions Additional Instructions: Total Knee Discharge Instructions Activity: The most important activity is to walk. You should try to take short walks a few times a day. It is important that when resting you work on keeping the knee straight. Avoid putting a pillow behind the knee as this will encourage flexion. Work on range of motion exercises as provided by Physical Therapy. If you have the [employer] bike coming, this will be your primary tool for exercise after the knee replacement. You should use it and follow the directions for the knee. Utilize the other exercises sparingly based on your symptoms. - Start outpatient physical therapy within 2 weeks. - You should wear the ARUNA hose on both legs for 2 weeks. You may remove these at night. You may also use any compression sock in place of the ARUNA hose. - Utilize [employer] to review exercises, see videos on exercises and obtain basic information pertaining to your surgery and your recovery. Dressing: Remove the Alessio wrap by 2 days after your surgery and put on the ARUNA stocking given to you from the hospital. Keep the surgical dressing (underneath the ALESSIO wrap) in place for at least one week. After the first week it may be removed and replaced with light gauze and tape or nothing. The wound and dressing may get wet after 3 days but avoid soaking the dressing or otherwise it will need to be changed. Many people prefer covering the dressing with cling wrap (saran wrap) to minimize it from getting soaked. If it gets wet, just pat dry. If it starts to peel off then it will need to be changed. Medications: - You should take Tylenol and anti-inflammatory Celebrex as your primary pain control medications. If the Celebrex is too expensive or not covered, please call the office for another alternative (Advil/Ibuprofen or Naproxen/Aleve) - You have been prescribed a stronger pain medication Oxycodone for breakthrough pain, take as needed as prescribed. - You may continue with your previously prescribed stomach acid reduction agent omeprazole to help reduce stomach acid and reflux. - You have been prescribed Gabapentin to take at night for restlessness and nerve pain. - You will be taking Aspirin 81mg twice a day for DVT prevention unless instructed otherwise. - If you have constipation you should take Colace or Miralax (both [id number]). It takes most people 3-4 days to have a bowel movement. Follow-up: 2 weeks If you have any acute concerns or questions, please do not hesitate to contact the office at [phone]. You may contact Dr. Kc with any questions after hours through the hospital at [phone] or on his cell phone at [phone]. Referrals: Paras Kc MD [ [facility]FF [facility]YSICIAN] - Equipment/Supplies: Walker Activity:: Activity as Tolerated Remove Dressings/Wound Care:: Do Not Remove Shower/Bathe:: 72 hours Diet:: As Tolerated Discharge Orders Discharge Orders: Discharge Order (Routine); Ordered 09/30/21 Ordered By: Becca Martin
[2021-09-30] MEDS: Gabapentin 300 MG CAP PO (07:58)
[2021-09-30] MEDS: Lactated Ringers 1,000 ML 80 ML IV (07:58)
[2021-09-30] MEDS: Acetaminophen 500 MG TAB 1000 MG PO (07:59)
[2021-09-30] MEDS: Celecoxib 200 MG CAP 400 MG PO (07:59)
--- NOTE | 2021-09-30 08:17 | W.ANESPRE ---
General Info Date of Service Date Performed: 09/30/21 Height: 5 ft 4.5 in Weight: 80.6 kg Body Mass Index (BMI): 30.0 Surgical Procedure: Operation Date: 09/30/21 09:40 Proposed Procedure Side Surgeon p Knee Total Arthroplasty Right Paras Kc MD Meds Allergies and Home Medications Allergies Allergy/AdvReac Type Severity Reaction Status Date / Time atorvastatin AdvReac Intermediate MYALGIAS Verified 09/30/21 07:33 pravastatin AdvReac Intermediate MYALGIAS Verified 09/30/21 07:33 simvastatin AdvReac Intermediate MYALGIAS Verified 09/30/21 07:33 Home Medication Medication Instructions Recorded calcium carbonate 600 mg calcium 600 mg PO BID #180 tab-cap 08/05/21 (1,500 mg) tablet cholecalciferol (vitamin D3) 50 2,000 unit PO DAILY #90 tab-cap 08/05/21 mcg (2,000 unit) capsule (Vitamin D3) levothyroxine 25 mcg tablet 12.5 mcg PO DAILY #90 tab-cap 08/05/21 omeprazole 20 mg capsule,delayed 20 mg PO DAILY #90 cap 08/05/21 release oxybutynin chloride 10 mg 10 mg PO DAILY #90 tab 08/05/21 tablet,extended release 24 hr rosuvastatin 20 mg tablet (Crestor) 20 mg PO DAILY #90 tab 08/05/21 venlafaxine 75 mg tablet 75 mg PO BID #180 tab-cap 08/05/21 acetaminophen 500 mg capsule 1,000 mg PO Q8H PRN PRN #90 cap 09/30/21 aspirin 81 mg tablet,delayed 81 mg PO BID #60 tab 09/30/21 release celecoxib 200 mg capsule (Celebrex) 200 mg PO BID #60 cap 09/30/21 gabapentin 300 mg capsule 300 mg PO QHS #14 cap 09/30/21 oxycodone 5 mg tablet 5 mg PO Q4H PRN #18 tab 09/30/21 Current Visit Medications: Current Medications Generic Name Dose Route Start Last Admin Trade Name Freq PRN Reason Stop Dose Admin Acetaminophen 1,000 mg 09/30/21 06:00 09/30/21 07:59 Acetaminophen 500 Mg Tab PO 09/30/21 16:00 1,000 mg PREOP KEYLA Administration Acetaminophen 1,000 mg 09/30/21 14:00 Acetaminophen 500 Mg Tab PO TID KEYLA Aspirin 81 mg 09/30/21 20:00 Aspirin E.C. 81 Mg Tabec PO BID KEYLA Celecoxib 400 mg 09/30/21 06:00 09/30/21 07:59 Celecoxib 200 Mg Cap PO 09/30/21 16:00 400 mg PREOP KEYLA Administration Celecoxib 200 mg 09/30/21 20:00 Celecoxib 200 Mg Cap PO BID KEYLA Docusate Sodium 100 mg 09/30/21 07:34 Docusate Sodium 100 Mg Cap PO BID PRN PRN Constipation Gabapentin 300 mg 09/30/21 06:00 09/30/21 07:58 Gabapentin 300 Mg Cap PO 09/30/21 16:00 300 mg PREOP KEYLA Administration Gabapentin 300 mg 09/30/21 22:00 Gabapentin 300 Mg Cap PO HS KEYLA Hydromorphone HCl 0.5 mg 09/30/21 07:34 Hydromorphone 2 Mg/Ml Vial IVP Q2H PRN PRN Tranexamic Acid 1,000 mg/ 60 mls @ 360 mls/hr 09/30/21 06:00 Sodium Chloride IVPB 09/30/21 16:00 PREOP KEYLA Tranexamic Acid 1,000 mg/ 60 mls @ 360 mls/hr 09/30/21 06:00 Sodium Chloride IVPB 09/30/21 16:00 DIRECTED KEYLA Ringer's Solution 1,000 mls @ 80 mls/hr 09/30/21 06:00 09/30/21 07:58 IV 10/11/21 23:59 80 mls/hr INFUSION KEYLA Administration Cefazolin Sodium/Dextrose 2 gm in 50 mls @ 100 mls/hr 09/30/21 06:00 Ancef Duplex IVPB 09/30/21 23:59 PREOP KEYLA Cefazolin Sodium/Dextrose 1 gm in 50 mls @ 100 mls/hr 09/30/21 16:00 Ancef Duplex IVPB 10/01/21 08:29 Q8H KEYLA IV Miscellaneous Supplies 1 each 09/30/21 06:00 Iv Access IV 10/11/21 23:59 DIRECTED KEYLA Ondansetron HCl 4 mg 09/30/21 07:34 Ondansetron 4 Mg/2 Ml Vial IVP Q6H PRN PRN Nausea Oxycodone HCl 0 mg 09/30/21 07:34 Oxycodone 5 Mg Tab PO Q3H PRN PRN Pain Pantoprazole Sodium 40 mg 10/01/21 07:30 Pantoprazole 40 Mg Tabcr PO DAILY@0730 KEYLA Sodium Chloride 0 ml 09/30/21 06:00 Normal Saline Flush 10 Ml Syr IV 10/11/21 23:59 PRN PRN Sodium Chloride 0 ml 09/30/21 06:00 Normal Saline 10 Ml Vial IJ 10/11/21 23:59 DIRECTED PRN Sterile Water 0 ml 09/30/21 06:00 Water,Injection,Sterile 10 Ml Vial IJ 10/11/21 23:59 DIRECTED PRN PFSH Active Problems Active Problems: Problem Status Onset Code Osteoarthritis of right knee M17.11 Dupuytren's contracture 01/07/15 M72.0 Polyp of colon 01/13/13 K63.5 Smoker F17.200 CAP (community acquired pneumonia) J18.9 VAP (ventilator-associated pneumonia) J95.851 Constipation K59.00 Acid reflux K21.9 Tachycardia R00.0 Hyponatremia E87.1 Knee pain M25.569 Hypothyroidism 10/18/12 E03.9 Hyperlipidemia 10/18/12 E78.5 Depressive disorder F32.9 Anxiety F41.9 Allergic rhinitis J30.9 Medical History Medical History Allergic rhinitis Anxiety Depression Hyperlipidemia Hypothyroidism Osteoarthritis of knees, bilateral Surgical History Surgical History Arthroscopy (~08/2014) RIGHT HAND Colonoscopy - IV Sedation (01/13/13) 2002; 2007; 01/13/13 DR. Ramon HARP;RECTAL POLYP S/P total knee arthroplasty Thyroid PARTIAL Trigger Finger release left Tobacco Smoking/Tobacco Use Status: Current every day Tobacco Type: cigarettes Smoking cigarettes per day: 10 Second hand exposure: Yes Alcohol Alcohol Intake: current Alcohol intake frequency: a few times a month Alcohol type: beer and hard liquor Substance Use Substance use: Never Substance use type: does not use Details: last alcohol t-7 Vital Signs and Lab Results Vital Signs Most Recent Vital Signs in EMR: Most Recent Vital Signs Temp Pulse Resp BP Pulse Ox 36.8 C 96 H 16 131/81 99 09/30/21 08:02 09/30/21 08:02 09/30/21 08:02 09/30/21 08:02 09/30/21 08:02 Lab Results Blood Type / Crossmatch: No Data to Display Complete Blood Count: White Blood Count 8.04 10^3/uL (4.4-10.8) 09/29/21 10:10 09/29/21 Red Blood Count 4.93 10^6/uL (3.93-5.22) 09/29/21 10:10 09/29/21 Hemoglobin 15.0 g/dL (11.2-15.7) 09/29/21 10:10 09/29/21 Hematocrit 44.8 % (36.0-46.0) 09/29/21 10:10 09/29/21 Platelet Count 323 10^3/uL (130-400) 09/29/21 10:10 09/29/21 Complete Metabolic Panel: Sodium Level 139 mmol/L (136-145) 09/29/21 10:10 09/29/21 Potassium Level 4.7 mmol/L (3.5-5.1) 09/29/21 10:10 09/29/21 Chloride Level 101 mmol/L (98-107) 09/29/21 10:10 09/29/21 Carbon Dioxide Level 29.4 mmol/L (21.0-32.0) 09/29/21 10:10 09/29/21 Blood Urea Nitrogen 14 mg/dL (7-18) 09/29/21 10:10 09/29/21 Creatinine 0.8 mg/dL (0.55-1.02) 09/29/21 10:10 09/29/21 Estimated GFR/1.73 m2 >= 60.00 (mL/min/1.73m2) 09/29/21 10:10 09/29/21 Calcium Level 9.5 mg/dL (8.5-10.1) 09/29/21 10:10 09/29/21 Glucose Level 106 mg/dL (74-106) 09/29/21 10:10 09/29/21 Liver Function Panel: No Data to Display Coagulation Panel: No Data to Display Cardiac Panel: No Data to Display Arterial Blood Gas: No Data to Display Venous Blood Gas: No Data to Display Pancreas Panel: No Data to Display Thyroid Panel: No Data to Display Infectious Disease: Coronavirus (COVID-19)(PCR) Negative (Negative) 09/29/21 10:17 09/29/21 Coronavirus 2019 Source Nasal/Nares 09/29/21 10:17 09/29/21 Blood Cultures: No Data to Display Toxicology Panel: No Data to Display Anesthesia Assessment and Plan Anesthesia History Personal History: No History of Anesthesia Complications Family History: No Family History of Anesthesia Complications Exercise Tolerance Exercise Tolerance: Metabolic Equivalents>4 Pertinent Negatives Pertinent Negatives: No Symptoms of GERD, No Major Cardiovascular Symptoms or Complaints, No Major Pulmonary Symptoms or Complaints and No History of CVA/TIA Cardiac & Pulmonary Exam Cardiac Exam: Normal S1/S2 Heart Sounds Pulmonary Exam: Clear Bilateral Breath Sounds Implantable Cardiac Device Does patient have a Pacemaker or an ICD?: No Airway Exam Known Difficult Airway: No Mallampati Class: 2 Mouth Opening: Normal (> 3cm) Thyromental Distance: Greater than 3 cm Neck Range of Motion: Full ROM Neck Circumference: Normal Teeth Condition: Normal Dentition ASA Classification ASA Score: ASA 2 Emergency Case?: No NPO Status NPO Status: NPO Clears >2 hours, Solids >8 hours Anesthesia Plan Resuscitation Status: Full Code Anesthesia Technique: Spinal Anesthesia Airway Planned: Natural Airway Pain Management: Surgeon and patient request nerve block Monitors Used: Standard Monitors
--- NOTE | 2021-09-30 08:53 | W.ANESNERVE ---
Nerve Block Single Injection Procedure Date and Time Date Performed: 09/30/21 Procedure Start: 08:34 Location Where Procedure Performed Procedure Location: Day Surgery Unit Reason Performed: Postoperative Analgesia Requesting Provider: Paras Kc Timeout Performed Timeout Performed: Yes Monitoring Used ECG, Blood Pressure, SpO2 and See EMR for corresponding vital signs Sterility Sterility: Hand Hygiene, Surgical Cap, Surgical Mask, Sterile Gloves and Chlorhexidine Sedation Given During Procedure Sedation Given (Indicate Dose Given): Versed IV Dose:: 2 mg Patient Mental Status Patient Mental Status: Sedate with meaningful communication Nerve Block 1st Nerve Block: Laterality: Right Block Type: Adductor Canal Needle / Catheter Used: 100mm SonoPlex II Local Anesthetic Bolus (Indicate Dose Given): Lidocaine used for local infiltration of skin, Injected in 3-5ml increments after negative blood aspiration and Bupivacaine 0.25% Dose:: 15 ml Additives (Indicate Dose Given): None Ultrasound: Sterile probe cover and gel used Ultrasound Image Saved?: Yes Nerve Stimulator: Not Used Paresthesia: None Procedure Tolerated: No Complications and Patient tolerated well Procedure Outcome: Successful Performed By: Zaina Reyes
[2021-09-30] MEDS: ceFAZolin 2 GM/50 ML BAG IVPB (08:55)
--- NOTE | 2021-09-30 10:21 | ROE_ITS ---
Date of service: 09/30/21 Time of Service: 10:21 Operative Note Operative Note DATE OF PROCEDURE: 09/30/21 PRE-OP DIAGNOSIS: Right Knee Osteoarthritis POST-OP DIAGNOSIS: same PROCEDURE: Right Total Knee Replacement SURGEON: Paras Kc MANAGER PHOTO: Becca Martin ANESTHESIA TYPE: Spinal Refer to Anesthesia Record ESTIMATED BLOOD LOSS: 150 PATHOLOGY: none sent TOURNIQUET TIME: 0 COMPLICATIONS: None Patient was transported to: PACU Patient's condition: stable Implants: 1. Depuy Attune Cementless Cruciate Retaining Femoral Component, Size 4 2. Depuy Attune Cementless Rotating Platform Tibial Component, Size 4 3. Depuy Attune 4x6mm CR/RP Poly 4. Depuy Attune Patellar Component, Size 35mm Indications: I have seen Alena in clinic for symptoms of knee arthritis, confirmed with radiographic findings. She has exhausted nonoperative methods and was having significant limitations in daily function and desired better function and less pain. I discussed the technical details of a knee replacement. I explained the risks of the procedure to include, but not limited to, bleeding, infection, pain, stiffness, fracture, damage to nerves and vessels, damage to muscles and tendons, loosening, need for repeat procedure, blood clot and cardiopulmonary demise. Despite these risks, Alena elected to proceed. Findings: There was significant signs of arthritis throughout the knee, concentrated mostly in the trochlea and medial tibia and femur. Procedure Description: Alena was greeted in the preoperative holding area where the correct side was identified and marked. The consent was reviewed with the patient and signed. The history and physical was updated. All questions were answered. Preoperative medications were administered: Acetaminophen 1000mg, Celebrex 400mg, and Gabapentin 300mg. An adductor canal block was then administered by the anesthesia team in the PACU. Alena was taken back to the operating room. A spinal anesthestic was then administered. The patient was placed into the supine position on the operating room table. A nonsterile tourniquet was placed high onto the leg but only used for cementing. Posts were placed for positioning during the procedure. All bony prominences were well padded. Prophylactic antibiotics in the form of Cefazolin were administered. 1g of Tranxemic Acid was given intravenously w ithin 30 minutes of incision. The right leg was then prepped with Chloraprep and draped in a standard fashion with impervious stockinette. A second prep with Chloraprep was performed prior to application of Iodine impregnated skin protection. A timeout to confirm correct identity, side and site, procedure, allergies, anesthesia, and medical concerns was performed. With the knee in some flexion, a midline incision was made overlying the knee. Full thickness skin flaps were raised once the extensor mechanism was encountered. These were raised medially and laterally. Any bleeding was contr olled with electrocautery. Once the extensor mechanism was fully exposed, a medial parapatellar arthrotomy was performed in a flexed position. All bleeding from the arthrotomy and the geniculate arteries was coagulated. A medial subperiosteal peel was performed with electrocautery to the midcoronal plane. Due to the significant varus deformity the entire medial tibial plateau was exposed. The fat pad was removed while keeping the patellar tendon protected. The anterior distal femur synovium was removed for later visualization. The ACL and PCL were resected and the anterior horn of the lateral meniscus was transected. The knee was then flexed with the patella everted. Large osteophytes from the tibia were removed. Large osteophytes from the femur were removed. Using a step drill, and based on preoperative templating, the femoral canal was entered. This was done with a step drill without any difficulty. The intramedullary distal femoral cut guide was inserted, set to a 5 degree valgus cut and 9mm cut thickness. The distal femoral cut guide was then held in position and pinned. With the soft tissues protected, the distal cut was performed. This was passed over a few times to ensure a planar cut. I then turned attention to the tibia. The extramedullary guide was placed onto the leg. The distal aspect was slid medial to adjust for position of center of ankle and stay in line with shaft of the tibia. Approximately 3-5 degrees of posterior slope was kept in the proximal cutting guide. The center of the guide was aligned with the PCL. The stylus was used to assess cut thickness. The medial side, most involved side, was set for a 4mm cut, corresponding to 9 mm laterally. This was then held in position and pinned into place with 2 additional pins and a cross pin for stability. The medial and lateral collateral ligaments were protected and the cut was performed. With this completed, it was assessed and noted to be of appropriate dimensions. The guide was removed. A spacer block was inserted and the knee was brought into extension. The 6mm spacer block provided full extension, without hyperextension and with stability of both the medial and lateral collateral ligaments was assessed. The pins from the femur and the tibia were then removed. The distal femur was then sized. The anterior stylus was placed onto the lateral ridge of the anterior femur. This indicated a size 4 femur. The external rotation of the guide was adjusted to 3 degrees to match the epicondylar axis, perpendicular to Pass Christian?s line. The 4-in-1 cutting guide was the placed. The posterior medial femur cut was evaluated and appeared of good thickness. The spacer block was inserted underneath the cutting guide and stability was confirmed in 90 degrees of flexion. An ashley wing was used to confirm appropriate position of the anterior cut to avoid notching. This cutting guide was ensured to be flush on the cut surface and then pinned into place with headed pins. While protecting the soft tissues, quad tendon, and collateral ligaments, the anterior and posterior cuts were performed with a saw. The central two pins were removed and the posterior and anterior chamfers were cut next. The notch-cutting guide was placed. This was pinned to lateralize the femoral component as much as possible while keeping it flush on the cut surface. This was then pinned into position. A reciprocating saw was used to make the notch cut. A rasp smoothed the cut surfaces. The medial and lateral menisci were removed. A trial femoral component was then inserted, impacted down to the cut surfaces, and the lug holes were drilled. A provisional trial tibial component was placed and the knee was brought through range of motion. There was noted to be excellent extension and flexion. There was no significant instability. The patella was tracking without thumbs. A size 6mm polyethylene component provided the best range of motion and stability with less than 2mm gapping with medial and lateral stress and full extension without significant hyperextension. The tibial cut surface was fully exposed. The tibia was then sized as a 4. The tibia had been previously marked during trialing to correspond to the center of the tibial component to help with rotation. The trial was aligned to this vitaly, approximately rotated to the medial 1/3rd of the tibial tubercle. The trial was pinned into place. The tibia was prepared with a reamer and a keel punch and lug holes. The knee was then brought into extension and the patella was measured as 24mm. Using the patellar clamp and cut guide, this was resected to a flat surface with at least 13mm of thickness remaining. The size 35 patella fit the best. This was oriented and then clamped into position. The lugs were drilled. The trial components were removed. The final components were opened on the back table. The periosteal and capsular tissues, especially posteriorly, around the knee were then systematically injected with a periarticular cocktail consisting of 50cc 0.25% Marcaine, 30mg Ketorolac, 20cc of Exparal and 50cc of injectable saline. The knee was thoroughly irrigated with a pulse lavage and dried. Irrisept was also used to irrigate the tissues. On the back table, with the implants opened, the cement was mixed. One batch of high viscosity cement was prepared with vacuum assistance. After the cement was ready a small amount was placed on the cut surface of the patella and the patellar button was clamped into position and held. While the cement was hardening, the cementless knee components were placed. Starting with the tibial component, the tibia was subluxed anteriorly and the lug holes of the component were lined up. The tibia was then impacted with an impactor and mallet until the tibial component was in contact with the tibia. The final polyethylene component was inserted. Then, the femoral component was inserted. The lug holes were aligned and the component was impacted into position. The knee was irrigated with Surgiphor betadine solution. This was allowed to sit in the knee for 3 minutes. It was then irrigated with saline for complete removal. After the cement had finally cured, approximately 15min, the clamp was removed from the patella and the knee was taken through range of motion. The patella was tracking with a no-thumbs technique. The capsule was then reapproximated with a No. 1 Vicryl at multiple locations. The capsule was finally closed with a No. 2 Stratafix, barbed suture. The second dosing of 1g TXA was started. Deep tissues were then reapproximated with 0 Vicryl and 2-0 Vicryl. The skin was closed with a running 3-0 Monocryl in a subcuticular fashion. This was reinforced with skin glue. A Mepilex silver dressing was applied along with a [id number] GAGAN wrap. A CryoCuff was applied. Alena was transferred to the hospital bed without difficulty an suffering no apparent complication. Alena has a good prognosis. Physical therapy will start today and without restrictions, weight-bearing as tolerated. Aspirin 81mg BID will be used for DVT prophylaxis.
--- NOTE | 2021-09-30 12:42 | W.ANESPOSTOP ---
Postoperative Evaluation Date, Time and Location Date Performed: 09/30/21 Time Performed: 11:52 Patient Location: Day Surgery Unit Vital Signs Most Recent Imported Vital Signs: Most Recent Vital Signs Temp Pulse Resp BP Pulse Ox 36.4 C L 74 16 124/48 L 97 09/30/21 12:05 09/30/21 12:05 09/30/21 12:05 09/30/21 12:05 09/30/21 12:05 Pain Score Most Recent Pain Score: Most Recent Pain Score Pain Level [Right Knee] 2 09/30/21 12:30 Pain Level 2 09/30/21 12:05 Assessment Mental Status: Awake (Alert & Oriented to Patient Baseline) Airway and Respiratory Function: Patent airway with normal (patient baseline) respiratory exam Cardiovascular Function: Hemodynamically Stable Hydration Status: Adequately Hydrated Nausea & Vomiting: No Nausea or Vomiting Pain: Pain is tolerable per patient Peripheral Nerve Block: Regional nerve block not resolved at time of post operative discharge
--- NOTE | 2021-09-30 12:47 | IN_ITS ---
Date of service: 09/30/21 Time of Service: 12:47 PT Notes Visit Reasons: Right TKA Physical Therapy Day Surgery Initial Evaluation Date: 09/30/2021 Referring Doctor: CHRISS Dow PT Orders: PT CONSULT: S/P Ortho surgery Precautions: WBAT on right LE with AD. Patient Profile/Admitting Diagnosis: Alena is a 61-year-old female with primary unilateral osteoarthritis of the right knee and start right total arthroplasty on post day 0. PMHX: Medical History? Allergic rhinitis Anxiety Depression Hyperlipidemia Hypothyroidism Osteoarthritis of knees, bilateral Surgical History? Arthroscopy (~08/2014) RIGHT HAND Colonoscopy - IV Sedation (01/13/13) 2002; 2007; 01/13/13 DR. Ramon HARP;RECTAL POLYP S/P total knee arthroplasty Thyroid PARTIAL Trigger Finger release left Social History/Home Situation: Lives with Nicholas in a private home with 5 steps to enter with a rail on the left going up. 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 Equipment Owned/DME: [facility] Subjective: Agreeable to Pt consult. Denies pain, dizziness, and headache throughout session. Objective: General Observation: Supine in bed. GAGAN wraps to R LE. Cryocuff to R knee. TEDS to L leg Mental Status: Alert and oriented x 4 Pain: 0/10 in R knee with rest and with movement ROM: Right Lower Extremity: Hip flexion WFL. Hip abduction WFL. Knee flexion WFL. Ankle dorsiflexion WFL. Ankle plantarflexion WFL. Left Lower Extremity: Hip flexion WFL. Hip abduction WFL. Knee flexion 20 degrees to 100 degrees. Knee extension -20 degrees. Ankle dorsiflexion WFL. Ankle plantarflexion WFL. Strength: Right Lower Extremity: Hip flexors 5/5. Hip abductors 5/5. Knee flexors 5/5. Knee extensors 5/5. Ankle dorsiflexors 5/5. Ankle plantarflexors 5/5. Left Lower Extremity:Hip flexors 5/5. Hip abductors 5/5. Knee flexors 3-/5. Knee extensors 3-standby assist /5. Ankle dorsiflexors 5/5. Ankle plantarflexors 5/5. Sensation: Intact as to pain and light pressure in bilateral lower extremities. Minimal numbness in bilateral areas. Bed Mobility/Transfers: Supine to sit stand by assist Sit to stand contact-guard assist Stand to sit standby assist Bed to chair standby assist Gait: 150 feet on level surface ambulation using front wheeled walker with step to gait pattern requiring standby assist. No loss of balance. No shortness of breath. Good quad activation. Stairs: Completed 6 x 4 inch steps and 4 x 6 inch steps holding onto bilateral rails with step to gait pattern requiring standby assist without increase in pain report. Balance: Static Sitting: Normal Dynamic Sitting: Normal Static Standing: Fair Dynamic Standing: Fair Special Tests: Mobility Limitations Standardized Measure [facility] 6 clicks Basic Mobility Inpatient Short Form: Raw Score: 23 CMS Score: 11% deficit Informed Consent/Education: Patient instructed in purpose of PT consult. Educ ation and training on initial set of exercises that can be done at home have been completed with patient. Assessment: Alena requires the use of a FWW for all mobility ADL performance to reduce risk f or falls while facilitating independence. She will have full support of as she recovers at home. Patient presents with clinical signs and symptoms consistent with current/admitting diagnoses that have resulted to mobility limitations, gait instability, generalized weakness, and impairment of motor control as demonstrated by the following impairment level findings: 1. Decreased strength to R knee major muscle groups 2. Impaired standing balance 3. Limitation of joint range of motion in R knee Impairments are contributing to the following functional limitations: 1. Inability to safely ambulate without assistive device 2. Increase completion time for mobility ADL performance 3. Increased fall risk Patient is assessed as a 57753 moderate complexity based on the following: History: 61-year-old female with impairment level findings, functional limitations, and past medical history as indicated above Examination: Demonstrable impairment in strength, balance, and mobility level with underlying impairments and functional limitations as documented above evolving Presentation: Evolving Decision Makin moderate complexity Goals: N/A. PT evaluation and 1-2 treatment sessions only for functional mobility training using recommended AD and for HEP instruction. Plan of Care/Treatment Plan: N/A. PT evaluation and 1-2 treatment session only for functional mobility training using recommended AD and for HEP instruction. DISCHARGE RECOMMENDATIONS: [] Home with no services [] [] Home with services [specify] [X] Home with outpatient PT. Home when medically cleared by surgeon. Will benefit from outpatient PT services to facilitate return to independent community ambulation without an assistive device. [] SNF for continued rehabilitation [] [] Care Home Care [] [] SNF versus LTC based on ability to participate and progress TREATMENT CODE/TIME: 01380 x 20 minutes, 9753 0 x 18 minutes beginning at 12:47 PM. Thank you for the opportunity to participate in the care of this patient. Erica Alexander PT, DPT, CLT [facility] [place], [place]
== END 2021-09-30 13:52 | disposition home or self-care (01) ==
PROVIDERS: PCP Family Medicine; Visit Provider Student in an Organized Health Care Education/Training Program
PROC: (CPT 27447; principal; 2021-09-30 09:30)
DX: M17.11 Unilateral primary osteoarthritis, right knee (principal); F17.210 Nicotine dependence, cigarettes, uncomplicated; E03.9 Hypothyroidism, unspecified; E78.5 Hyperlipidemia, unspecified; F41.9 Anxiety disorder, unspecified; F32.A Depression, unspecified
CPT/HCPCS: 27447; 76942; 97162; 97530; J0690; J1885; J2001; J2250; J2405

== ENCOUNTER 2021-10-13 13:27 | Outpatient (CLI) | payer MEDICAID, SELFPAY ==
--- NOTE | 2021-10-13 12:45 | DI.RAD_ITS ---
Exam(s) XR STANDING ALIGNMENT XR KNEE RT 1V EXAM: XR STANDING ALIGNMENT CLINICAL HISTORY: 1ST POST OP R TKA. TECHNIQUE: 2D digital imaging was performed. Standing AP views were performed from the pelvis throu gh the ankles. COMPARISON: CR XR KNEE RT 3V AP,LAT,ROMULO from 08/08/2020 CR XR KNEE RT 1V from 04/03/2021 CR XR STANDING ALIGNMENT from 04/03/2021 CR XR KNEE RT 1V from 10/13/2021 FINDINGS: BONES: No acute fracture is present. No bony destructive lesion is seen. The left femoral head proje cts approximately 1 cm superior to the right. JOINTS: Knees: Bilateral total knee prostheses. The right knee prosthesis has been placed since the previous exam. The components show satisfactory alignment. There is no change in the left knee pros thesis. The ankle and hip joints are unremarkable. SOFT TISSUE: Safety pins overlie the right ischium. IMPRESSION: Status post right knee prosthesis. Mild leg length discrepancy. DATA REPOSITORY: RADIATION DOSE DELIVERED:
== END 2021-10-13 13:28 | disposition home or self-care (01) ==
LOC: DIORS 13:27
PROVIDERS: PCP Family Medicine; Referring Provider Family Medicine; Visit Provider Physician Assistant
DX: Z96.651 Presence of right artificial knee joint (principal); Z47.1 Aftercare following joint replacement surgery; M21.752 Unequal limb length (acquired), left femur
CPT/HCPCS: 73560; 77073

== ENCOUNTER 2022-06-12 00:27 | Outpatient (CLI) | payer MEDICAID, SELFPAY ==
--- NOTE | 2022-06-12 08:00 | DI.CTLCSR_ITS ---
Exam(s) CT CHEST LUNG CANCER SCREEN EXAM: CT CHEST LUNG CANCER SCREEN CLINICAL HISTORY: Screening for lung cancer,CURRENT SMOKER, F17.200 TECHNIQUE: Imaging Protocol: Axial computed tomography images with coronal and sagittal reformatted images were created and reviewed. Low dose screening protocol. COMPARISON: CT CT CHEST PE CTA from 10/07/2018 FINDINGS: Tracheobronchial tree: No bronchiectasis or mucus plugging.. Mediastinum and Sandra: No dominant adenopathy or fluid collection. Pulmonary parenchyma: No consolidation or dominant measurable mass. No visible emphysematous changes. Lung Nodules: No suspicious nodules Pleura: No effusion. No pneumothorax. Heart: The heart is not dilated. Moderate coronary artery calcifications are seen. Aorta: Thoracic aorta non-dilated. Upper abdomen: Unremarkable. Bones: Endplate osteophytes. Soft Tissues: Large nodule inferior pole of left lobe of thyroid. This is noted previously. IMPRESSION: No suspicious pulmonary nodules. Lung RADS Cat 1 - Negative: No nodules and definitely benign nodules Lung-RADS 1.0 CATEGORIES: Category 0 - Prior chest CT exam(s) being located for comparison. Category 1 - Annual screening in 12 months. No nodules or definitely benign nodules. Category 2 - Annual screening in 12 months. Benign appearance. Nodules with low likelihood of becomin g active cancer. Category 3 - 6-month follow-up. Probably benign. Short-term follow-up suggested. Nodules with low lik elihood of becoming active cancer. Category 4A - 3-month follow-up and CT/PET if >8 mm in size. Suspicious finding. Findings which requi re additional testing. Category 4B - Findings which require additional testing and tissue sampling. Category 4X - Category 3 or 4 nodules with additional features or imaging findings that increases the suspicion of malignancy. Modifier S- Potentially clinically significant findings (non lung cancer) RADIATION DOSE DELIVERED: 68.51mGy.cm Total DLP DATA REPOSITORY: All CT scans at this facility are submitted to the National Radiology Data Registry (NRDR) Dose Index Registry (DIR) with the [employer] (A[employer]). RADIATION OPTIMIZATION: All CT scans at this facility use at least one of these dose optimization te chniques: automated exposure control; mA and/or kV adjustment per patient size (includes targeted exa ms where dose is matched to clinical indication); or iterative reconstruction.
== END 2022-06-12 00:47 ==
LOC: DI 00:27
PROVIDERS: PCP Nurse Practitioner Family; Visit Provider Nurse Practitioner Family
DX: Z12.2 Encounter for screening for malignant neoplasm of respiratory organs (principal); F17.210 Nicotine dependence, cigarettes, uncomplicated
CPT/HCPCS: 71271

== ENCOUNTER 2022-06-23 03:21 | Outpatient (CLI) | payer MEDICAID, SELFPAY ==
[2022-06-23 12:33] LABS: HCT 44.8 % (36.0-46.0); HGB 14.9 g/dL (11.2-15.7); MCH 30.7 pg (27.0-33.0); MCHC 33.3 % (32.0-36.0); MCV 92 fL (80-95); MPV 9.5 fL (8.0-11.0); Platelet Count 356 10^3/uL (130-400); RBC 4.85 10^6/uL (3.93-5.22); RDW 12.5 % (11.7-14.6); RDW-SD 42.6 fL; WBC 8.23 10^3/uL (4.4-10.8)
[2022-06-23 12:51] LABS: Hemoglobin A1C 5.7 % (<5.7)
[2022-06-23 14:09] LABS: ALT 33 U/L (14-59); AST 23 U/L (15-37); Albumin 4.4 g/dL (3.4-5.0); Alkaline Phosphatase 102 U/L (46-116); Anion Gap 7.6 mmol/L (3-11); BUN 12 mg/dL (7-18); Bilirubin, Total 0.6 mg/dL (0.2-1.0); CO2 32.4 mmol/L (21.0-32.0); CREATININE 0.8 mg/dL (0.55-1.02); Calculated LDL 133 mg/dL (<100); Chloride 97 mmol/L (98-107); Cholesterol 215 mg/dL (<200); Estimated GFR 82.74 (mL/min/1.73m2); Glucose 93 mg/dL (74-106); HDL Cholesterol 62 mg/dL (40-60); Potassium 4.2 mmol/L (3.5-5.1); Sodium 137 mmol/L (136-145); TSH (W/Ref FT4) 1.67 uIU/mL (0.36-3.74); Total Protein 7.9 g/dL (6.4-8.2); Triglyceride 100 mg/dL (<150)
[2022-06-24 09:57] LABS: Hepatitis C Ab w Rflx HCV PCR Negative (Negative)
== END 2022-06-23 03:22 | disposition home or self-care (01) ==
LOC: LOS 03:21
PROVIDERS: PCP Nurse Practitioner Family; Visit Provider Nurse Practitioner Family
DX: E03.9 Hypothyroidism, unspecified (principal); E78.5 Hyperlipidemia, unspecified; F17.200 Nicotine dependence, unspecified, uncomplicated; F32.9 Major depressive disorder, single episode, unspecified; F41.9 Anxiety disorder, unspecified; K21.9 Gastro-esophageal reflux disease without esophagitis; Z00.00 Encounter for general adult medical examination without abnormal findings
CPT/HCPCS: 36415; 80053; 80061; 85027; 86803; 83036; 84443

== ENCOUNTER 2022-06-25 02:45 | Outpatient (CLI) | payer MEDICAID, SELFPAY ==
--- NOTE | 2022-06-25 13:13 | DI.MAMMO_ITS ---
Exam(s) MAMMO SCREENING EXAM: MAMMO SCREENING CLINICAL HISTORY: screening,Z12.39 TECHNIQUE: Bilateral full field digital CC and MLO mammographic images were obtained with 3D tomosyn thesis and utilizing computer aided detection (CAD). COMPARISON: Available for comparison. FINDINGS: Masses/Architectural Distortion: None seen. Microcalcifications: No suspicious pleomorphic-type are seen. Skin Thickening/Nipple Retraction: None. IMPRESSION: 1. No significant interval change with no specific features of malignancy noted. 2. Unless there is more urgent need, screening mammography is recommended, as per [employer] guidelines. BI-RADS Category 1 - Negative Breast Density - Category C - Heterogeneously dense Breast density category C or D implies that the patient has dense breast tissue. Dense breast tissue is very common and is not abnormal but dense breast tissue can make it harder to find cancer on a ma mmogram. Also, dense breast tissue may increase their breast cancer risk. This information about the result of the mammogram report was provided to the patient to raise their awareness. Use this report when you speak with the patient about their risks for breast cancer, which includes their family hist ory. At that time, you may recommend for more screening tests (Ultrasound or MRI) as they might be us eful based on their risk. A negative radiographic report should not delay biopsy if a dominant or clinically suspicious mass is present. Up to ten percent of cancers are not identified on mammography. A negative report may reinforce clinical impression. Adenosis and dense breasts may obscure an underlying neoplasm. False positive reports average 6 to 10%. Patient will receive a letter notifying them of these results.
== END 2022-06-25 03:05 ==
LOC: DI 02:45
PROVIDERS: PCP Nurse Practitioner Family; Visit Provider Nurse Practitioner Family
DX: Z12.31 Encounter for screening mammogram for malignant neoplasm of breast (principal); R92.8 Other abnormal and inconclusive findings on diagnostic imaging of breast
CPT/HCPCS: 77063; 77067

== ENCOUNTER 2022-10-16 11:01 | Outpatient (CLI) | payer MEDICAID, SELFPAY ==
--- NOTE | 2022-10-16 10:45 | DI.RAD_ITS ---
Exam(s) XR KNEE RT 2V AP,LAT EXAM: XR KNEE RT 2V AP,LAT CLINICAL HISTORY: ANNUAL F/U R TKA. TECHNIQUE: 2D digital imaging was performed. COMPARISON: CR XR KNEE RT 1V from 10/13/2021 FINDINGS: Two views: There is stable position alignment of the components of the knee prosthesis. No fracture or loosenin g evident. IMPRESSION: Satisfactory stable appearance. DATA REPOSITORY: RADIATION DOSE DELIVERED:
== END 2022-10-16 11:02 | disposition home or self-care (01) ==
LOC: DIORS 11:02
PROVIDERS: PCP Nurse Practitioner Family; Referring Provider Nurse Practitioner Family; Visit Provider Student in an Organized Health Care Education/Training Program
DX: Z96.651 Presence of right artificial knee joint (principal)
CPT/HCPCS: 73560

== ENCOUNTER 2023-01-04 15:16 | Outpatient (REF) | payer MEDICAID, SELFPAY ==
[2023-01-04 16:47] LABS: Bilirubin Negative (Negative); Blood Large (Negative); Clarity Cloudy (Clear); Glucose Negative (Negative); Ketones Negative (Negative); Leukocyte Esterase Large (Negative); Nitrite Positive (Negative); Urobilinogen 0.2 mg/dL (Up to 0.2)
[2023-01-04 17:08] LABS: Bacteria Many HPF (Negative); C & S Indicated? Yes; Casts Negative LPF (Negative); Crystals Negative HPF (Negative); Epithelial Cells Rare HPF (Negative); Mucus Negative (Negative); WBC >50 HPF (0-5)
== END 2023-01-04 15:17 | disposition home or self-care (01) ==
LOC: LBN 15:16
PROVIDERS: PCP Nurse Practitioner Family; Visit Provider Nurse Practitioner Family
DX: N39.0 Urinary tract infection, site not specified (principal)
CPT/HCPCS: 87077; 81003; 81015; 87086; 87186

== ENCOUNTER 2023-03-01 07:42 | Day surgery (SDC) | payer MEDICAID, SELFPAY ==
--- NOTE | 2023-02-28 19:12 | W.PM.DSUDISC ---
Date of service: 03/01/23 Time of Service: 09:12 Discharge Plan Disposition Patient Disposition: Home Condition: Good Discharge Details Reason For Visit: Screening colonoscopy Attending Provider: Carlos Steiner Primary Care Provider: Janis Thompson Home Meds and New Rx's Prescriptions: Continued omeprazole 20 mg capsule,delayed release(DR/EC) 20 mg PO .QOD venlafaxine 75 mg tablet 75 mg PO BID Qty: 180 3RF Rx Instructions: /take one tablet twice a day rosuvastatin [Crestor] 20 mg tablet 20 mg PO DAILY Qty: 90 3RF oxybutynin chloride 10 mg tablet extended release 24hr 10 mg PO DAILY Qty: 90 3RF Rx Instructions: take one tablet at night time levothyroxine 25 mcg tablet 12.5 mcg PO DAILY Qty: 90 3RF cholecalciferol (vitamin D3) [Vitamin D3] 50 mcg (2,000 unit) capsule 2,000 unit PO DAILY Qty: 90 3RF calcium carbonate 600 mg calcium (1,500 mg) tablet 600 mg PO BID Qty: 180 3RF acetaminophen 500 mg capsule 1,000 mg PO Q8H PRN PRNQty: 90 0RF Discontinued bisacodyl [Dulcolax (bisacodyl)] 5 mg tablet,delayed release (DR/EC) 5 mg PO ONCE Qty: 4 0RF Rx Instructions: Take as directed for your colonoscopy polyethylene glycol 3350 17 gram powder in packet 255 g PO DAILY Qty: 15 0RF Rx Instructions: Mix 255 gm in 64 oz of gatorade or juice. Drink as directed Discharge Instructions Instructions: Colorectal Polyps (GEN) Additional Instructions: Alena, Your colonoscopy went just fine. The quality of your prep was excellent. I did find 1 very small polyp within your rectum. I removed this completely. When I have the results on the nature of that polyp I will be in touch with any changes regarding your future colonoscopies. 1. If tolerated, consume a soft, low fiber diet for 1-2 days. 2[address] Do not drive, drink alcohol, operate machinery, make critical decisions, or do activities that require coordination or balance for 24 hours. 3. Because air was put into your colon during the procedure, expelling air from your rectum (passing gas or farting) is normal. 4. You may not have a bowel movement for 1-3 days because of the colonoscopy prep. This is normal. 5. Go directly to the emergency room if you notice any of the following: Develop chills (warm to touch), or if you have a thermometer and your temperature is above 101 Difficulty breathing or difficultly swallowing Persistent vomiting Severe abdominal pain, other than gas cramps Severe chest pain Black, tarry stools Any bleeding ? exceeding one tablespoon 6. Call your physician if the site where your intravenous was started becomes red, swollen, painful, and warm to touch. 7. Your physician has reviewed your pre-procedure medications. Please continue to take those medications as previously ordered. You will be given specific information/education regarding any changes to your medications before leaving. Activity:: Activity as Tolerated Diet:: As Tolerated Discharge Orders Discharge Orders: Discharge Order (Routine); Ordered 02/28/23 Ordered By: Carlos Steiner DS: Diagnosis Discharge Diagnosis (1) Screen for colon cancer: Status: Acute Asessment and Plan: I will follow-up on the rectal polyp
--- NOTE | 2023-02-28 19:14 | W.COLOREPORT ---
Date of service: 03/01/23 Time of Service: 09:13 Colonoscopy Report Date of procedure: 03/01/23 Pre-op diagnosis general: Screening colnoscopy Post-op diagnosis procedure note: other (Rectal polyp) Procedure: Colonoscopy with polypectomy Surgeon: Carlos Steiner Anesthesia Type: General:No Airway Estimated blood loss (mL): 5 Pathology: other (0.25 cm rectal polyp) Complications: None Disposition: same day Indications: Alena is a 63 year old woman who has a first degree family history of colon cancer. She is here for another screening colonoscopy Prep: Miralax/Dulcolax Procedure Start Time: 08:36 Procedure End Time: 09:04 Retraction Time: 19 Findings: 0.25 cm rectal polyp Procedure Description: After the induction of monitored anesthetic care, and with the patient in left lateral decubitus position, I began by performing an external anorectal exam.? Perineum and skin were normal, as was the anal verge.? There was no evidence of external hemorrhoids.? Next, I performed a digital rectal exam.? I did not appreciate any abnormal findings.? Next, I advanced a colonoscope into the rectal vault.? I performed retroflexion.? This appeared normal.? Using insufflation, I then advanced the colonoscope beyond the rectal folds and into the sigmoid colon before advancing towards the cecum.? The quality of the prep was excellent.? The scope was noted to be in the cecum by identification of the ileocecal valve and appendiceal orifice.? I then began withdrawing the colonoscope using repeated irrigation as necessary for full evaluation of the colonic mucosa. ?Once the scope was withdrawn to the level of the rectum, great care was taken to examine portions of the rectal folds.? There was a 0.25 cm rectal polyp towards the upper portion of the rectal vault. I removed it with cold forceps polypectomy. There was minimal bleeding. Finally, the scope was withdrawn and the patient was brought to the same-day surgery recovery unit as the anesthetic wore off. ?The findings and instructions were shared with the patient prior to discharge.
[2023-03-01 07:57] VITALS: BP 122/67; PULSE 94; RESP 20; TEMP 36.8; O2SAT 97
--- NOTE | 2023-03-01 08:08 | ANES.PREOP_ITS ---
General Info Date of Service Date Performed: 03/01/23 Height: 5 ft 4 in Weight: 76 kg Body Mass Index (BMI): 28.8 Surgical Procedure: Operation Date: 03/01/23 09:05 Proposed Procedure Side Surgeon isaiah Steiner MD Meds Allergies and Home Medications Allergies Allergy/AdvReac Type Severity Reaction Status Date / Time atorvastatin AdvReac Intermediate MYALGIAS Verified 03/01/23 07:57 pravastatin AdvReac Intermediate MYALGIAS Verified 03/01/23 07:57 simvastatin AdvReac Intermediate MYALGIAS Verified 03/01/23 07:57 Home Medication Medication Instructions Recorded acetaminophen 500 mg capsule 1,000 mg PO Q8H PRN PRN #90 caps 09/30/21 cholecalciferol (vitamin D3) 50 2,000 unit PO DAILY #90 tab-caps 09/07/22 mcg (2,000 unit) capsule (Vitamin D3) levothyroxine 25 mcg tablet 12.5 mcg PO DAILY #90 tab-caps 09/07/22 oxybutynin chloride 10 mg 10 mg PO DAILY #90 tabs 09/07/22 tablet,extended release 24 hr rosuvastatin 20 mg tablet (Crestor) 20 mg PO DAILY #90 tabs 09/07/22 venlafaxine 75 mg tablet 75 mg PO BID #180 tab-caps 09/07/22 calcium carbonate 600 mg calcium 600 mg PO BID #180 tab-caps 09/08/22 (1,500 mg) tablet omeprazole 20 mg capsule,delayed 20 mg PO .QOD 11/26/22 release Current Visit Medications: Current Medications Generic Name Dose Route Start Last Admin Trade Name Freq PRN Reason Stop Dose Admin Hyoscyamine Sulfate 0.125 mg 02/28/23 19:16 Hyoscyamine 0.125 Mg Sl/Oral/Chew SL 03/30/23 19:15 DIRECTED PRN Ringer's Solution 1,000 mls @ 80 mls/hr 03/01/23 06:00 IV 03/28/23 23:59 [facility] IV Miscellaneous Supplies 1 each 03/01/23 06:00 Iv Access IV 03/28/23 23:59 DIRECTED KEYLA Ondansetron HCl 4 mg 02/28/23 19:16 Ondansetron 4 Mg/2 Ml Vial IVP 03/30/23 19:15 Q4H PRN PRN Nausea / Vomiting Sodium Chloride 0 ml 03/01/23 06:00 Normal Saline Flush 10 Ml Syr IV 03/28/23 23:59 PRN PRN Sodium Chloride 0 ml 03/01/23 06:00 Normal Saline 10 Ml Vial IJ 03/28/23 23:59 DIRECTED PRN Sterile Water 0 ml 03/01/23 06:00 Water,Injection,Sterile 10 Ml Vial IJ 03/28/23 23:59 DIRECTED PRN PFSH Active Problems Active Problems: Problem Status Onset Code Screen for colon cancer Z12.11 Skin lesion of back L98.9 Dupuytren's contracture 01/07/15 M72.0 Polyp of colon 01/13/13 K63.5 Smoker F17.200 CAP (community acquired pneumonia) J18.9 VAP (ventilator-associated pneumonia) J95.851 Constipation K59.00 Acid reflux K21.9 Tachycardia R00.0 Hyponatremia E87.1 Knee pain M25.569 Hypothyroidism 10/18/12 E03.9 Hyperlipidemia 10/18/12 E78.5 Depressive disorder F32.9 Anxiety F41.9 Allergic rhinitis J30.9 Medical History Medical History Allergic rhinitis Anxiety Depression Hyperlipidemia Hypothyroidism Osteoarthritis of knees, bilateral Surgical History Surgical History Arthroscopy (~08/2014) RIGHT HAND Colonoscopy - IV Sedation (01/13/13) 2002; 2007; 01/13/13 DR. Ramon HARP;RECTAL POLYP S/P total knee arthroplasty Status post total right knee replacement (09/30/21) Thyroid PARTIAL Trigger Finger release left Tobacco Smoking/Tobacco Use Status: Current every day Tobacco Type: cigarettes Smoking cigarettes per day: 10 Second hand exposure: Yes Alcohol Alcohol Intake: current Alcohol intake frequency: a few times a month Alcohol type: beer, wine and hard liquor Substance Use Substance use: Never Substance use type: does not use Vital Signs and Lab Results Vital Signs Most Recent Vital Signs in EMR: Most Recent Vital Signs Temp Pulse Resp BP Pulse Ox 36.8 C 94 H 20 122/67 97 03/01/23 07:57 03/01/23 07:57 03/01/23 07:57 03/01/23 07:57 03/01/23 07:57 Lab Results Blood Type / Crossmatch: No Data to Display Complete Blood Count: No Data to Display Complete Metabolic Panel: No Data to Display Liver Function Panel: No Data to Display Coagulation Panel: No Data to Display Cardiac Panel: No Data to Display Arterial Blood Gas: No Data to Display Venous Blood Gas: No Data to Display Pancreas Panel: No Data to Display Thyroid Panel: No Data to Display Infectious Disease: No Data to Display Blood Cultures: No Data to Display Toxicology Panel: No Data to Display Anesthesia Assessment and Plan Anesthesia History Personal History: No History of Anesthesia Complications Family History: No Family History of Anesthesia Complications Exercise Tolerance Exercise Tolerance: Metabolic Equivalents>4 Pertinent Negatives Pertinent Negatives: No Symptoms of GERD, No Major Cardiovascular Symptoms or Complaints, No Major Pulmonary Symptoms or Complaints and No History of CVA/TIA Cardiac & Pulmonary Exam Cardiac Exam: Normal S1/S2 Heart Sounds Pulmonary Exam: Clear Bilateral Breath Sounds Implantable Cardiac Device Does patient have a Pacemaker or an ICD?: No Airway Exam Known Difficult Airway: No Mallampati Class: 2 Mouth Opening: Normal (> 3cm) Thyromental Distance: Greater than 3 cm Neck Range of Motion: Full ROM Neck Circumference: Normal Teeth Condition: Normal Dentition ASA Classification ASA Score: ASA 2 Emergency Case?: No NPO Status NPO Status: NPO Clears >2 hours, Solids >8 hours Anesthesia Plan Resuscitation Status: Full Code Anesthesia Technique: General Anesthesia Airway Planned: Natural Airway Monitors Used: Standard Monitors
[2023-03-01] MEDS: Lactated Ringers 1,000 ML 80 ML IV (08:15)
[2023-03-01 08:28] VITALS: BMI 28.8
--- NOTE | 2023-03-01 09:03 | BOWEL_PTH ---
PATIENT: Alena Gamez LOC: [facility] U#:[id number] AGE/SX: 63/F ROOM: RE03/01/[address]: Carlos Steiner MD : 1960 BED: DIS: 03/01/2023 SPEC #: [id number] RECD: 03/01/23 12:51 STATUS: JOHNNA RE #: [id number] LEONIDAS: 03/01/23 09:[address]: Carlos Steiner DEPT: Surgical Specimen RECD BY: La Lopez ENTERED: 03/01/23 12:51 SP TYPE: Bowel OTHR DR: Janis Thompson, GEORGE Tissues: 1 - BIOPSY BOWEL Procedures: GROSS AND MICRO LEVEL 4 Comments: [id number]
[2023-03-01 09:07] VITALS: BP 129/76; PULSE 96; RESP 16; TEMP 37; O2SAT 97
[2023-03-01 09:38] VITALS: BP 125/72; PULSE 85; RESP 17; TEMP 37.1; O2SAT 98
--- NOTE | 2023-03-01 09:41 | W.ANESPOSTOP ---
Postoperative Evaluation Date, Time and Location Date Performed: 03/01/23 Time Performed: 09:21 Patient Location: Day Surgery Unit Vital Signs Most Recent Imported Vital Signs: Most Recent Vital Signs Temp Pulse Resp BP Pulse Ox 37.0 C 96 H 16 129/76 97 03/01/23 09:07 03/01/23 09:07 03/01/23 09:07 03/01/23 09:07 03/01/23 09:07 Pain Score Most Recent Pain Score: Most Recent Pain Score Pain Level 0 03/01/23 09:07 Assessment Mental Status: Awake (Alert & Oriented to Patient Baseline) Airway and Respiratory Function: Patent airway with normal (patient baseline) respiratory exam Cardiovascular Function: Hemodynamically Stable Hydration Status: Adequately Hydrated Nausea & Vomiting: No Nausea or Vomiting Pain: Pt. Denies Any Pain Peripheral Nerve Block: Patient did not receive a nerve block
== END 2023-03-01 09:45 | disposition home or self-care (01) ==
PROVIDERS: PCP Nurse Practitioner Family; Visit Provider Surgery
PROC: 0DJD8ZZ Inspection of Lower Intestinal Tract, Via Natural or Artificial Opening Endoscopic (ICD-10-PCS; CPT 45378; principal; 2023-03-01 09:00)
DX: Z12.11 Encounter for screening for malignant neoplasm of colon (principal); K62.1 Rectal polyp; Z80.0 Family history of malignant neoplasm of digestive organs
CPT/HCPCS: 45380; 88305; J2001

== ENCOUNTER 2023-05-17 18:38 | Outpatient (REF) | payer MEDICAID, SELFPAY ==
[2023-05-17 17:53] LABS: Bilirubin Negative (Negative); Blood Moderate (Negative); Clarity Cloudy (Clear); Glucose Negative (Negative); Ketones Negative (Negative); Leukocyte Esterase Large (Negative); Nitrite Negative (Negative); Urobilinogen 0.2 mg/dL (Up to 0.2)
[2023-05-17 18:02] LABS: Bacteria Few HPF (Negative); Crystals Negative HPF (Negative); Epithelial Cells Few HPF (Negative); Mucus Trace (Negative); RBC 0-2 HPF (0-2); WBC >50 HPF (0-5)
[2023-05-17 18:03] LABS: C & S Indicated? C&S Done As Ordered; Casts Negative LPF (Negative)
== END 2023-05-17 18:39 | disposition home or self-care (01) ==
LOC: LBN 18:38
PROVIDERS: PCP Nurse Practitioner Family; Visit Provider Nurse Practitioner Family
DX: N30.90 Cystitis, unspecified without hematuria (principal); R82.998 Other abnormal findings in urine
CPT/HCPCS: 87077; 81003; 81015; 87086; 87186

== ENCOUNTER → 2023-06-28 03:51 | Outpatient (CLI) | payer MEDICAID, SELFPAY ==
--- NOTE | 2023-06-28 07:00 | DI.MAMMO_ITS ---
Exam(s) MAMMO SCREENING EXAM: MAMMO SCREENING CLINICAL HISTORY: screening,z12.39 TECHNIQUE: Mammograms were interpreted according to the usual protocol including computer analysis w [employer] CAD system, tomosynthesis and C-view imaging. COMPARISON: 2013 to 2022 FINDINGS: The breasts are composed of heterogeneously dense fibroglandular densities, Breast Density category C . No suspicious masses or suspicious microcalcifications are seen. No skin thickening or abnormal axillary lymph nodes are seen. There has been no significant change from prior exams. IMPRESSION: BI-RADS Category 1, Negative mammogram. Yearly screening mammography is recommended. Breast Density Category C, heterogeneously Dense. The mammogram demonstrates the patient's breast tissue is dense. Dense breast tissue is very common a nd is not abnormal but dense breast tissue can make it harder to find cancer on a mammogram. Also, de nse breast tissue may increase breast cancer risk. This information about the result of the mammogram report was provided to the patient to raise their awareness. Use this report when you speak with the patient about their risks for breast cancer, which includes their family history. At that time, you may recommend additional screening tests (Ultrasound or MRI) as they might be useful based on their r isk. A negative radiographic report should not delay biopsy if a dominant or clinically suspicious mass is present. Up to ten percent of cancers are not identified on mammography. A negative report may reinforce clinical impression. Adenosis and dense breasts may obscure an underlying neoplasm. False positive reports average 6 to 10%.
--- NOTE | 2023-06-28 08:40 | DI.CTLCSR_ITS ---
Exam(s) CT CHEST LUNG CANCER SCREEN EXAM: CT CHEST LUNG CANCER SCREEN CLINICAL HISTORY: Screening for lung cancer,current smoker, f17.210 TECHNIQUE: Imaging Protocol: Axial computed tomography images with coronal and sagittal reformatted images were created and reviewed. Low dose screening protocol. COMPARISON: CT CT CHEST PE CTA from 10/07/2018 US US thyroid from 10/10/[address] CHEST LUNG CANCER SCREEN from 06/12/2022 FINDINGS: Tracheobronchial tree: No bronchiectasis or mucus plugging.. Left-sided thyroid nodule again noted. Mediastinum and Sandra: No dominant adenopathy or fluid collection. Pulmonary parenchyma: No consolidation or dominant measurable mass. Mild emphysematous changes. Lung Nodules: No suspicious pulmonary nodules. Pleura: No effusion. No pneumothorax. Heart: The heart is not dilated. Moderate coronary artery calcifications are seen. Aorta: Thoracic aorta non-dilated. Upper abdomen: Unremarkable. Bones: Degenerative changes. Soft Tissues: Unremarkable. IMPRESSION: No suspicious pulmonary nodules. Lung RADS Cat 1 - Negative: No nodules and definitely benign nodules Lung-RADS 1.0 CATEGORIES: Category 0 - Prior chest CT exam(s) being located for comparison. Category 1 - Annual screening in 12 months. No nodules or definitely benign nodules. Category 2 - Annual screening in 12 months. Benign appearance. Nodules with low likelihood of becomin g active cancer. Category 3 - 6-month follow-up. Probably benign. Short-term follow-up suggested. Nodules with low lik elihood of becoming active cancer. Category 4A - 3-month follow-up and CT/PET if >8 mm in size. Suspicious finding. Findings which requi re additional testing. Category 4B - Findings which require additional testing and tissue sampling. Category 4X - Category 3 or 4 nodules with additional features or imaging findings that increases the suspicion of malignancy. Modifier S- Potentially clinically significant findings (non lung cancer) RADIATION DOSE DELIVERED: 75.21mGy.cm Total DLP DATA REPOSITORY: All CT scans at this facility are submitted to the National Radiology Data Registry (NRDR) Dose Index Registry (DIR) with the [employer] (ACR). RADIATION OPTIMIZATION: All CT scans at this facility use at least one of these dose optimization te chniques: automated exposure control; mA and/or kV adjustment per patient size (includes targeted exa ms where dose is matched to clinical indication); or iterative reconstruction.
== END ==
PROVIDERS: PCP Nurse Practitioner Family; Visit Provider Nurse Practitioner Family
DX: E11.9 Type 2 diabetes mellitus without complications (principal); F17.210 Nicotine dependence, cigarettes, uncomplicated; Z12.31 Encounter for screening mammogram for malignant neoplasm of breast; Z12.2 Encounter for screening for malignant neoplasm of respiratory organs
CPT/HCPCS: 71271; 77063; 77067

== ENCOUNTER 2023-06-28 05:28 | Outpatient (CLI) | payer MEDICAID, SELFPAY ==
[2023-06-28 09:35] LABS: HCT 44.4 % (36.0-46.0); HGB 15.1 g/dL (11.2-15.7); MCH 30.6 pg (27.0-33.0); MCV 90 fL (80-95); MPV 8.9 fL (8.0-11.0); Platelet Count 321 10^3/uL (130-400); RBC 4.93 10^6/uL (3.93-5.22); RDW 12.4 % (11.7-14.6); RDW-SD 41.3 fL; WBC 10.46 10^3/uL (4.4-10.8)
[2023-06-28 09:57] LABS: Hemoglobin A1C 5.4 % (<5.7)
[2023-06-28 10:03] LABS: Anion Gap 6.3 mmol/L (3-11); BUN 14 mg/dL (7-18); CO2 33.7 mmol/L (21.0-32.0); CREATININE 0.9 mg/dL (0.55-1.02); Calcium 10.6 mg/dL (8.5-10.1); Calculated LDL 152 mg/dL (<100); Chloride 96 mmol/L (98-107); Cholesterol 241 mg/dL (<200); Estimated GFR 71.39 (mL/min/1.73m2); Glucose 112 mg/dL (74-106); HDL Cholesterol 69 mg/dL (40-60); Potassium 4.2 mmol/L (3.5-5.1); Sodium 136 mmol/L (136-145); TSH (W/Ref FT4) 1.06 uIU/mL (0.36-3.74); Triglyceride 101 mg/dL (<150)
== END 2023-06-28 05:29 | disposition home or self-care (01) ==
LOC: LBO 05:28
PROVIDERS: PCP Nurse Practitioner Family; Visit Provider Nurse Practitioner Family
DX: E03.9 Hypothyroidism, unspecified (principal); E04.2 Nontoxic multinodular goiter; E78.5 Hyperlipidemia, unspecified; F17.210 Nicotine dependence, cigarettes, uncomplicated; F32.9 Major depressive disorder, single episode, unspecified; F41.9 Anxiety disorder, unspecified; K21.9 Gastro-esophageal reflux disease without esophagitis; Z00.00 Encounter for general adult medical examination without abnormal findings; R73.09 Other abnormal glucose
CPT/HCPCS: 36415; 80048; 80061; 85027; 83036; 84443

== ENCOUNTER → 2023-08-19 02:24 | Outpatient (CLI) | payer MEDICAID, SELFPAY ==
--- NOTE | 2023-08-19 14:40 | DI.US_ITS ---
Exam(s) US THYROID EXAM: US THYROID CLINICAL HISTORY: Multinodular goiter, assess nodules. HYPOTHYROIDISM. TECHNIQUE: Ultrasound thyroid performed using standard protocol. COMPARISON: Chest CT scan 06/28/2023 reviewed. Prior ultrasound of 10/10/2018 was reviewed. FINDINGS: There are multiple findings in both lobes again noted. These are again noted be more prominent in th e left lobe. LEFT THYROID LOBE: Measures 2.9 cm AP x 3.6 cm wide x 7.2 cm craniocaudal There are 3 nodules in the left lobe. Nodule #1. This is the most superiorly located nodule. Size: Measures 1.5 x 1.5 x 1.4 cm Composition: Solid-2 points Echogenicity: Isoechoic to surrounding parenchyma-1 point Shape: Taller than wider in the transverse plane-3 points Margin: Smooth- 0 points Echogenic Foci: Appears to contain punctate echogenic foci-3 points Total Points for this nodule: 9 ACR Ti-Rads Category: TR5; therefore this nodule requires ultrasound- guided FNA as it is a TR 5 level nodule measuring greater than 1 cm Nodule #2. This dominant size nodule occupies most of the mid aspect of the left lobe. Size: Measures 3.3 x 2.7 x 3.9 cm cm Composition: Mixed cystic-solid- 1 point Echogenicity: The solid components of this mixed nodule are isoechoic to surrounding parenchyma-1 poi nt Shape: Wider than taller- 0 points Margin: Indistinct-0 points Echogenic Foci: None-0 points Total points for this nodule: 2 ACR Ti-Rads Category: TR2; therefore this nodule can be followed. Nodule #3. This nodule is located inferomedially in the left lobe. Size: Measures 2.2 x 1.9 x 2.2 cm cm Composition: Solid or almost completely solid- 2 points Echogenicity: Hypoechoic-2 points Shape: Wider than taller- 0 points Margin: Indistinct-0 points Echogenic Foci: None-0 points Total points for this nodule: 4 ACR Ti-Rads Category: 4 This TR 4 level nodule require ultrasound-guided FNA as it measures greater than 1.5 cm. ISTHMUS: Normal thickness. There are no nodules in the isthmus. RIGHT THYROID LOBE: Measures 1.7 cm AP x 1.5 wide x 0.2 cm craniocaudal Contains 2 significant nodules. Nodule #1. This is the more superior of the 2 nodules Size: Measures 0.6 x 0.4 x 0.6 cm Composition: Solid-2 points Echogenicity: Hypoechoic-2 points Shape: Wider than taller in the transverse plane-0 points Margin: Smooth-0 points Echogenic Foci: None-0 points Total points for this nodule: 4 ACR Ti-Rads Category: 4 This TR 4 level nodule can be followed as it measures less than 1.5 cm. Nodule #2 . This is the more inferior of the 2 nodules in the right lobe. Size: Measures 0.8 x 0.4 x 0.7 cm Composition: Solid-2 points Echogenicity: Hypoechoic-2 points Shape: Wider than taller in the transverse plane-0 points Margin: Smooth-0 points Echogenic Foci: Appears to contain some internal echogenic foci-3 points Total Points for this nodule: 7 ACR Ti-Rads Category: 5 This TR 5 level nodule can be followed as it measures less than 1 cm size. LYMPH NODES: There is no significant adenopathy. IMPRESSION: Bilateral nodules as described individually above. The 2 nodules in the right lobe can be followed conservatively In the left lobe 2 of the 3 nodules qualify for ultrasound-guided FNA as described above. However, in reviewing the previous images of the prior ultrasound of 10/10/2018, the left-sided nodul es do not appear to have significantly increased in size.. In addition, the patient informs me that she believes that she has had prior biopsy years ago. Therefore correlation with any prior biopsy re sults is recommended. DATA REPOSITORY:
== END ==
PROVIDERS: PCP Nurse Practitioner Family; Visit Provider Otolaryngology
DX: E04.2 Nontoxic multinodular goiter (principal)
CPT/HCPCS: 76536

== ENCOUNTER → 2023-09-14 03:32 | Outpatient (CLI) | payer MEDICAID, SELFPAY ==
--- NOTE | 2023-09-14 07:30 | DI.US_ITS ---
Exam(s) US NEEDLE LOCAL OTHER WO RAD EXAM: US NEEDLE LOCAL OTHER WO RAD CLINICAL HISTORY: Left nodules x 2 meeting criteria for biopsy,ULTRASOUND GUIDED BX,E04.2. COMPARISON: US US THYROID from 08/19/2023 TECHNIQUE: Ultrasound guidance was provided for ultrasound FNA of left thyroid lobe nodules performe d by Dr. Ventura See procedure report for details. FINDINGS: Submitted images and cine acquisitions reveal the FNA needle in the targeted nodule IMPRESSION: Successful Ultrasound-guided Localization. DATA REPOSITORY:
--- NOTE | 2023-09-14 12:40 | PAPNONF_PTH ---
PATIENT: Alena Gamez LOC: [facility] U#:[id number] AGE/SX: 65/F ROOM: RE09/14/[address]: Chris Ventura MD : 1960 BED: DIS: SPEC #: [id number] RECD: 09/14/23 13:21 STATUS: JOHNNA GARCIA #: [id number] LEONIDAS: 09/14/23 12:[address]: Chris Ventura DEPT: REPLACED BY [facility] RECD BY: La Lopez ENTERED: 09/14/23 13:22 SP TYPE: ARMANDO PRETTY DR: Janis Thompson, GEORGE Tissues: 1 - BODY FLUID CYTO-FINE NEEDLE ASPIRATE-[facility] 2 - BODY FLUID CYTO-FINE NEEDLE ASPIRATE[facility] Procedures: BODY FLUID CYTO-FINE NEEDLE ASPIRATE-[facility] Comments: [id number] (PATH FNA CONSULT) (REFRIGERATED)
--- NOTE | 2023-09-14 13:00 | W.PROCNOTE ---
Date of service: 09/14/23 Time of Service: 13:00 Procedure Note Date of procedure: 09/14/23 Procedure: Ultrasound-guided FNA, left thyroid nodule x 2, pathology present Surgeon/Proceduralist/Physician: Chris Ventura Procedure Diagnosis: Left thyroid nodule x 2 meeting criteria for biopsy Procedure Indications: The patient has 2 left-sided thyroid nodules meeting criteria for biopsy. Options were explained to the patient regarding further management. She elected to undergo the above procedure. Consent was filled out and signed. The below was then performed. Procedure Description: The patient was positioned in the supine position and prepped and draped in appropriate fashion with her neck slightly extended. Ultrasound was used to localize first the superior thyroid nodule and then 1% lidocaine with 1/100,000 epinephrine was injected to the skin and subcutaneous tissues overlying the medial aspect of the nodule. Ultrasound was then used to guide a 25-gauge needle into the thyroid nodule and the needle was passed repeatedly through the nodule. Adequate cellularity was verified by pathology. 2 additional passes were made for Afirma testing. The same was then repeated for the inferior nodule of concern. Again cellular adequacy was verified by pathology. The entry sites were checked for hemostasis and then a sterile dressing was applied to each. The patient was allowed to sit and then stand and ambulate. Her vital signs remained stable. She will call if she does not hear from me within 1 week with regard to pathology. She will call with any signs of infection. She will remove the bandages and 1 hour and not replace them.
== END ==
PROVIDERS: PCP Nurse Practitioner Family; Visit Provider Otolaryngology
DX: D34 Benign neoplasm of thyroid gland (principal)
CPT/HCPCS: 10005; 76942; 88104

== ENCOUNTER 2023-10-14 15:52 | Outpatient (CLI) | payer MEDICAID, SELFPAY ==
--- NOTE | 2023-10-14 08:45 | DI.RAD_ITS ---
Exam(s) XR KNEE RT 2V AP,LAT EXAM: XR KNEE RT 2V AP,LAT INDICATION: ANNUAL F/U R TKA. COMPARISON: No exams were available for comparison TECHNIQUE: 2D digital imaging was performed. Two views. FINDINGS: There has been no change in the appearance of the total knee prosthesis or surrounding bone. DATA REPOSITORY: RADIATION DOSE DELIVERED:
== END 2023-10-14 15:53 | disposition home or self-care (01) ==
LOC: DIORS 15:53
PROVIDERS: PCP Nurse Practitioner Family; Visit Provider Student in an Organized Health Care Education/Training Program
DX: Z96.651 Presence of right artificial knee joint (principal); Z47.1 Aftercare following joint replacement surgery
CPT/HCPCS: 73560

== ENCOUNTER 2024-04-10 16:47 | Outpatient (CLI) | payer MEDICARE, SELFPAY ==
--- NOTE | 2024-04-10 16:40 | DI.RAD_ITS ---
Exam(s) XR CHEST 2V PA LATERAL EXAM: XR CHEST 2V PA LATERAL CLINICAL HISTORY: R05.9 Cough , eval pna. TECHNIQUE: 2D digital imaging was performed. COMPARISON: No exams were available for comparison FINDINGS: 2 views: Heart size is normal. The mediastinum is not widened. Lungs are clear. No infiltrates nor pleural effusions. IMPRESSION: No acute pulmonary findings. DATA REPOSITORY: RADIATION DOSE DELIVERED:
--- NOTE | 2024-04-10 16:53 | DI.VRAD_ITS ---
PROCEDURE INFORMATION: Exam: XR Chest Exam date and time: 04/10/2024 4:35 PM Age: 64 years old Clinical indication: Patient HX: Cough, eval pna TECHNIQUE: Imaging protocol: Radiologic exam of the chest. Views: 2 views. COMPARISON: CT CHEST LUNG CANCER SCREEN 06/28/2023 8:42 AM FINDINGS: Lungs: Unremarkable. No consolidation. Pleural spaces: Unremarkable. No pleural effusion. No pneumothorax. Heart/Mediastinum: Unremarkable. No cardiomegaly. Bones/joints: Unremarkable. IMPRESSION: No acute findings. Dictated and Authenticated by: Estefania Olivo MD. Ordering:RUSSEL Benavides MD
== END 2024-04-10 17:07 ==
PROVIDERS: PCP Nurse Practitioner Family; Visit Provider Nurse Practitioner Family
DX: R05.9 Cough, unspecified (principal)
CPT/HCPCS: 71046

== ENCOUNTER 2024-08-15 03:06 | Outpatient (CLI) | payer MEDICARE, SELFPAY ==
[2024-08-15 12:40] LABS: HCT 44.3 % (36.0-46.0); HGB 14.9 g/dL (11.2-15.7); MCH 31.3 pg (27.0-33.0); MCHC 33.6 % (32.0-36.0); MCV 93 fL (80-95); MPV 9.6 fL (8.0-11.0); Platelet Count 315 10^3/uL (130-400); RBC 4.76 10^6/uL (3.93-5.22); RDW 12.4 % (11.7-14.6); RDW-SD 43.2 fL; WBC 8.13 10^3/uL (4.4-10.8)
[2024-08-15 12:50] LABS: ALT 27 U/L (14-59); AST 14 U/L (15-37); Albumin 4.1 g/dL (3.4-5.0); Alkaline Phosphatase 91 U/L (46-116); Anion Gap 4.8 mmol/L (3-11); BUN 11 mg/dL (7-18); Bilirubin, Total 0.63 mg/dL (0.2-1.0); CO2 34.2 mmol/L (21.0-32.0); CREATININE 0.8 mg/dL (0.55-1.02); Calcium 10.2 mg/dL (8.5-10.1); Calculated LDL 118 mg/dL (<100); Chloride 101 mmol/L (98-107); Cholesterol 208 mg/dL (<200); Estimated GFR 81.72 (mL/min/1.73m2); Glucose 86 mg/dL (74-106); HDL Cholesterol 65 mg/dL (>or=50); Potassium 3.8 mmol/L (3.5-5.1); Sodium 140 mmol/L (136-145); TSH (W/Ref FT4) 1.69 uIU/mL (0.36-3.74); Total Protein 7.5 g/dL (6.4-8.2); Triglyceride 126 mg/dL (<150)
== END 2024-08-15 03:07 | disposition home or self-care (01) ==
LOC: LOS 03:06
PROVIDERS: PCP Nurse Practitioner Family; Visit Provider Nurse Practitioner Family
DX: Z00.00 Encounter for general adult medical examination without abnormal findings (principal); E03.9 Hypothyroidism, unspecified; E78.5 Hyperlipidemia, unspecified; F41.9 Anxiety disorder, unspecified; F32.9 Major depressive disorder, single episode, unspecified; R41.3 Other amnesia
CPT/HCPCS: 36415; 80053; 80061; 85027; 84443

== ENCOUNTER → 2024-09-05 08:30 | Outpatient (BNVA) | payer MEDICARE, SELFPAY | PROVIDERS: Referring Provider Nurse Practitioner Family; Visit Provider Nurse Practitioner Adult Health | DX: R41.3 Other amnesia (principal); F17.210 Nicotine dependence, cigarettes, uncomplicated | CPT/HCPCS: 99215; 99417; G2212 ==

== ENCOUNTER 2024-09-26 01:51 | Outpatient (CLI) | payer MEDICARE, SELFPAY ==
--- NOTE | 2024-09-26 06:30 | DI.US_ITS ---
Exam(s) US THYROID EXAM: US THYROID CLINICAL HISTORY: Assess for change, biopsyx2 benign,multinodular goiter,e04.2. TECHNIQUE: Ultrasound thyroid performed using standard protocol. COMPARISON: US US thyroid from 10/10/2018 US US THYROID from 08/19/2023 US US NEEDLE LOCAL OTHER WO RAD from 09/14/2023 FINDINGS: ISTHMUS: 4 mm RIGHT LOBE: Size: 5.2 x 1.4 x 1.6 cm Echogenicity: Normal. Vascularity: Normal. Nodules: 2 small nodules measuring less than a centimeter in size. LEFT LOBE: Size: 6.6 x 3.0 x 3.4 cm Echogenicity: Normal. Vascularity: Normal. Nodules: Nodule 1. Solid isoechoic nodule at the upper pole measures 1.5 x 1.5 x 1.3 cm, punctate ec hogenic foci, slightly taller than wide. Unchanged from prior. TR 5. This nodule was previously bi opsied. Nodule 2. At the mid to lower pole measuring 4.2 x 3.3 x 3.7 cm it is mixed cystic and solid, solid components isoechoic. Smoothly marginated, wider than tall and without echogenic foci, TR 2. Previo usly biopsied. Nodule 3. Located at the inferomedial left lobe. Solid, hypoechoic, wider than tall. Smoothly margina emily without echogenic foci question of slightly wider than tall. TR 5. Previously biopsied. OTHER FINDINGS: No adenopathy. IMPRESSION: Stable size and appearance of thyroid nodules. DATA REPOSITORY:
== END 2024-09-26 02:11 ==
LOC: DI 01:51
PROVIDERS: PCP Nurse Practitioner Family; Visit Provider Otolaryngology
DX: E04.2 Nontoxic multinodular goiter (principal)
CPT/HCPCS: 76536

== ENCOUNTER 2024-09-26 01:52 | Outpatient (CLI) | payer MEDICARE, SELFPAY ==
--- NOTE | 2024-09-26 06:30 | DI.MAMMO_ITS ---
Exam(s) MAMMO SCREENING EXAM: MAMMO SCREENING CLINICAL HISTORY: screening,z12,39 TECHNIQUE: Mammograms were interpreted according to the usual protocol including computer analysis w [employer] CAD system, tomosynthesis and C-view imaging. COMPARISON: 2015 through 2023 FINDINGS: The breasts are composed of heterogeneously dense fibroglandular densities, Breast Density category C . No suspicious masses or suspicious microcalcifications are seen. No skin thickening or abnormal axillary lymph nodes are seen. There has been no significant change from prior exams. IMPRESSION: BI-RADS Category 1, Negative mammogram. Yearly screening mammography is recommended. Breast Density Category C, heterogeneously Dense. The mammogram demonstrates the patient's breast tissue is dense. Dense breast tissue is very common a nd is not abnormal but dense breast tissue can make it harder to find cancer on a mammogram. Also, de nse breast tissue may increase breast cancer risk. This information about the result of the mammogram report was provided to the patient to raise their awareness. Use this report when you speak with the patient about their risks for breast cancer, which includes their family history. At that time, you may recommend additional screening tests (Ultrasound or MRI) as they might be useful based on their r isk. A negative radiographic report should not delay biopsy if a dominant or clinically suspicious mass is present. Up to ten percent of cancers are not identified on mammography. A negative report may reinforce clinical impression. Adenosis and dense breasts may obscure an underlying neoplasm. False positive reports average 6 to 10%.
--- NOTE | 2024-09-26 07:45 | DI.CTLCSR_ITS ---
Exam(s) CT CHEST LUNG CANCER SCREEN EXAM: CT CHEST LUNG CANCER SCREEN CLINICAL HISTORY: Screening for lung cancer,cigarette smoker, f17.210 TECHNIQUE: Imaging Protocol: Axial computed tomography images with coronal and sagittal reformatted images were created and reviewed. Low dose screening protocol. COMPARISON: CT CT CHEST LUNG CANCER SCREEN from 06/28/2023 FINDINGS: Tracheobronchial tree: No bronchiectasis or mucus plugging. Mediastinum and Sandra: No dominant adenopathy or fluid collection. Enlargement of the left thyroid lob e again noted. Pulmonary parenchyma: No consolidation or dominant measurable mass. Mild emphysematous changes. No si gnificant interstitial changes. Lung Nodules: 3 millimeter granuloma left upper lobe. No change from prior. Pleura: No effusion. No pneumothorax. Heart: The heart is not dilated. Moderate coronary artery calcifications are seen. No pericardial eff usion. Aorta: Thoracic aorta non-dilated. Upper abdomen: Unremarkable. Bones: Unremarkable for age. Soft Tissues: Unremarkable. IMPRESSION: No suspicious pulmonary nodules. Lung RADS Cat 1 - Negative: No nodules and definitely benign nodules Lung-RADS 1.0 CATEGORIES: Category 0 - Prior chest CT exam(s) being located for comparison. Category 1 - Annual screening in 12 months. No nodules or definitely benign nodules. Category 2 - Annual screening in 12 months. Benign appearance. Nodules with low likelihood of becomin g active cancer. Category 3 - 6-month follow-up. Probably benign. Short-term follow-up suggested. Nodules with low lik elihood of becoming active cancer. Category 4A - 3-month follow-up and CT/PET if >8 mm in size. Suspicious finding. Findings which requi re additional testing. Category 4B - Findings which require additional testing and tissue sampling. Category 4X - Category 3 or 4 nodules with additional features or imaging findings that increases the suspicion of malignancy. Modifier S- Potentially clinically significant findings (non lung cancer) RADIATION DOSE DELIVERED: !Error Total DLP DATA REPOSITORY: All CT scans at this facility are submitted to the National Radiology Data Registry (NRDR) Dose Index Registry (DIR) with the [employer] (ACR). RADIATION OPTIMIZATION: All CT scans at this facility use at least one of these dose optimization te chniques: automated exposure control; mA and/or kV adjustment per patient size (includes targeted exa ms where dose is matched to clinical indication); or iterative reconstruction.
== END 2024-09-26 02:12 ==
LOC: DI 01:52
PROVIDERS: PCP Nurse Practitioner Family; Visit Provider Nurse Practitioner Family
DX: F17.210 Nicotine dependence, cigarettes, uncomplicated (principal); Z12.31 Encounter for screening mammogram for malignant neoplasm of breast; Z12.2 Encounter for screening for malignant neoplasm of respiratory organs
CPT/HCPCS: 71271; 77063; 77067

== ENCOUNTER 2024-09-27 01:40 | Outpatient (CLI) | payer MEDICARE, SELFPAY ==
--- NOTE | 2024-09-27 09:48 | DI.MRI_ITS ---
Exam(s) MR BRAIN WO EXAM: MR BRAIN WO CLINICAL HISTORY: memory changes,r41.3 TECHNIQUE: Multiplanar multisequence MRI of the brain was performed. COMPARISON: No exams were available for comparison FINDINGS: CEREBRAL PARENCHYMA: There is no evidence of intracranial hemorrhage, mass effect, or shift of midline structures. There are no extra-axial fluid collections. Ventricles are not enlarged or shifted. There is no significant focal signal abnormality in the cerebellar hemispheres nor within the mely, m idbrain, and thalami. There is no abnormal signal abnormality in the periventricular white matter. There are few small FLAIR bright foci of periventricular signal abnormality. The largest of these is in the right side of the corpus callosum, measuring 6 by 5 mm and exhibiting restricted diffusion on DWI imaging, consistent with acute nonhemorrhagic lacunar infarct at this level. There are no other foci of restricted diffusion in the brain. PITUITARY GLAND: No mass nor parasellar abnormality. No obvious abnormality in the cavernous sinuses. FLOW VOIDS: The expected flow void are noted. No evidence of obvious aneurysm nor obvious vascular ma lformation. PARANASAL SINUSES: The visualized paranasal sinuses appear unremarkable. No obvious finding ORBITS: No obvious findings. IMPRESSION: There is an acute nonhemorrhagic 6 x 5 mm lacunar infarct in the right side of the corpus callosum. DATA REPOSITORY:
== END 2024-09-27 02:00 ==
LOC: DI 01:40
PROVIDERS: PCP Nurse Practitioner Family; Visit Provider Nurse Practitioner Adult Health
DX: R41.3 Other amnesia (principal); I63.81 Other cerebral infarction due to occlusion or stenosis of small artery
CPT/HCPCS: 70551

== ENCOUNTER 2024-10-06 08:53 | Outpatient (CLI) | payer MEDICARE, SELFPAY | END 2024-10-06 08:54 | disposition home or self-care (01) | PROVIDERS: PCP Nurse Practitioner Family; Visit Provider Nurse Practitioner Adult Health | DX: I63.9 Cerebral infarction, unspecified (principal) | CPT/HCPCS: 93270 ==

== ENCOUNTER 2024-10-13 09:56 | Outpatient (CLI) | payer MEDICARE, SELFPAY ==
--- NOTE | 2024-10-13 09:45 | DI.MRI_ITS ---
Exam(s) MR ANGIO BRAIN WO CLINICAL HISTORY: stroke workup,I63.9. TECHNIQUE: 3D [id number] study was performed without contrast. COMPARISON: None. FINDINGS: Carotid Arteries: Petrous: Normal. Cavernous: Normal. Cerebral: Normal. Middle Cerebral Arteries: Right: No aneurysm or significant stenosis. Left: No aneurysm or significant stenosis. Anterior Cerebral Arteries: Right: No aneurysm or significant stenosis. Left: No aneurysm or significant stenosis. Posterior cerebral arteries: Right: No aneurysm or significant stenosis Left: No aneurysm or significant stenosis Vertebral Arteries: Right: Segment of smooth narrowing of the distal right vertebral artery, at the level of C1-2. No d issection. Left: No aneurysm or significant stenosis. No dissection.. Basilar Artery: No aneurysm or significant stenosis. Small Vessels: No evidence of beading. IMPRESSION: Area of smooth narrowing and mild tortuosity the distal right vertebral artery, at the upper cervical spine, the may be within normal limits of variation. DATA REPOSITORY:
--- NOTE | 2024-10-13 09:45 | DI.MRI_ITS ---
Exam(s) MR ANGIO NECK WO EXAM: MR ANGIO NECK WO CLINICAL HISTORY: stroke workup,I63.9. TECHNIQUE: 2D and 3D [id number] MRA of the Neck was performed. COMPARISON: US US THYROID from 09/26/2024 MR MR BRAIN WO from 09/27/2024 FINDINGS: Common Carotid: Right: No dissection, occlusion or significant stenosis. Left: No dissection, occlusion or significant stenosis. External Carotid: Right: No evidence of occlusion or significant stenosis. Left: No evidence of occlusion or significant stenosis. Internal Carotid: Right: No dissection, occlusion or significant stenosis. Tortuous distally. Left: No dissection, occlusion or significant stenosis. Vertebral Artery: Right: No dissection, occlusion or significant stenosis. Left: No dissection, occlusion or significant stenosis. Left-sided thyroid nodule noted. This was previously evaluated by ultrasound IMPRESSION: No evidence of dissection, occlusion or significant stenosis. DATA REPOSITORY:
== END 2024-10-13 10:16 ==
PROVIDERS: PCP Nurse Practitioner Family; Visit Provider Nurse Practitioner Adult Health
DX: I63.9 Cerebral infarction, unspecified (principal)
CPT/HCPCS: 70544; 70547

== ENCOUNTER 2024-10-19 01:51 | Outpatient (CLI) | payer MEDICARE, SELFPAY ==
[2024-10-19 13:16] LABS: Vitamin B12 1450 pg/mL (193-986)
== END 2024-10-19 01:52 | disposition home or self-care (01) ==
LOC: LOS 01:51
PROVIDERS: PCP Nurse Practitioner Family; Visit Provider Nurse Practitioner Adult Health
DX: R41.3 Other amnesia (principal)
CPT/HCPCS: 36415; 82607

== ENCOUNTER 2024-10-27 00:09 | Outpatient (CLI) | payer MEDICARE, SELFPAY ==
--- NOTE | 2024-10-27 08:30 | DI.US_ITS ---
APPROVED REPORT EXAM: Comprehensive 2D, Doppler, and color-flow Echocardiogram Patient Location: [facility] Research Manager: Yovani Guidry RDCS (AE) Indications: Stroke workup Other Information Study Quality: Adequate Conclusion Normal left ventricular wall thickness and chamber size. Ejection fraction is 55%. Wall motion is n ormal Normal right ventricular size and function Both atria are normal in size There are no structural valvular abnormalities Trace aortic and tricuspid regurgitation Mild mitral regurgitation Estimated right ventricular systolic pressure is 24 mmHg Wall motion Left Ventricle The left ventricle is normal size. Left ventricular systolic function is normal. The left ventricular ejection fraction is within the normal range. There is normal left ventricular wall thickness. There is normal LV segmental wall motion. There is no ventricular septal defect visualized. LVEF is 55%. Right Ventricle The right ventricle is normal size. The right ventricular systolic function is normal. Atria The left atrium size is normal. The right atrium size is normal. The interatrial septum is intact wit h no evidence for an atrial septal defect. Aortic Valve The aortic valve is normal in structure. Aortic valve is trileaflet. There is no aortic valvular sten osis. Trace aortic regurgitation. Mitral Valve The mitral valve is normal in structure. No evidence of mitral valve stenosis. Mild mitral regurgitat ion. Tricuspid Valve The tricuspid valve is normal in structure. There is no tricuspid valve stenosis. Trace tricuspid reg urgitation. The RVSP is 24.3 mmHg. Pulmonic Valve The pulmonary valve is normal in structure. There is no pulmonic valvular stenosis. There is no pulmo kary valvular regurgitation. Great Vessels The aortic root is normal in size. Ascending aorta is not well visualized. Aortic arch is normal in c aliber. IVC is normal in size and collapses >50% with inspiration. Pericardium There is no pericardial effusion. 2D Dimensions IVSD d PLAX 0.73 cm F: 0.6-1.0 Ao Root d 2.59 cm F: 2.7 - 3.3 LVPW d PLAX 0.72 cm F: 0.6 - 1.0 LVID d PLAX 5.29 cm F: 3.8 - 5.2 LVDs 3.85 cm F: 2.2 - 3.5 LV EF Teichholz 52.5 % FS 27.18 % LV EDV (Teich) 134.9 mL LV ESV (Teich) 64.1 mL Stroke Vol Index (Teich) 39.56 M-Mode TAPSE 2.14 cm (M/F) >1.7 Auto EF LV EDV A4C 89.8 mL LV EDV A2C 109.1 mL LV EDV BP 99.1 mL LV ESV A4C 42.5 mL LV ESV A2C 48.2 mL LV ESV BP 44.6 mL LVEF(%) A4C 52.7 % LVEF(%) A2C 55.8 % LVEF(%) BP 55.0 % LV SV A4C 47.4 ml LV SV A2C 60.9 ml LV SV BP 54.5 ml LV CO A4C 3.4 L/min LV CO A2C 4.3 L/min LV CO BP 3.8 L/min HR A4C 70.73 BPM HR A2C 70.87 BPM LV EDV Index (BP) LA Volume LA Length A4C 4.8 cm LA Length A2C 4.3 cm LA Area A4C s 12.51 cm2 LA Area A2C s 12.17 cm2 LA Vol A4C A-L 27.89 mL LA Vol A2C A-L 28.93 mL LA Vol Biplane A-L 29.7 mL LA Vol/BSA A4C A-L LA Vol/BSA A2C A-L LA Vol/BSA BP A-L 16.6 mL/m2 LA Vol A4C MOD 25.8 mL LA Vol A2C MOD 26.6 mL LA Vol BP MOD 27.4 mL RA Volume RA Area A4C 9.7 cm2 RA ESV A4C (A-L) 21.0mL RA Vol/BSA A4C A-L RA Length A4C 3.8 cm RA ESV A4C (MOD) 19.7mL LV Diastology MV E' medial 0.090 (>0.07 m/s) MV E Vmax 0.62 (0.4-1.3 m/s) MV E/E' MED 6.93 (<14) MV A Vmax 0.85 (0.4-1.3 m/s) MV E' lateral 0.084 (>0.1 m/s) E/A Ratio 0.7 MV E/E' LAT 7.42 (<14) MV E' Average 0.087 m/s MV E/E'(average) 7.16 Aortic Valve AoV Vmax 1.09 m/s LVOT Vmax 0.99 m/s AoV Peak Grad 4.7 mmHg LVOT Peak Grad 3.9 mmHg AoV Area (Vmax) 3.21 cm2 LVOT VTI 0.206 m AoV VTI 0.254 m LVOT Mean Grad 1.9 mmHg AoV Mean Aguila. 0.81 m/s LVOT SV 72.62 mL AoV Mean Grad 2.9 mmHg LVOT Diam s 2.10 cm AoV Area (VTI) 2.86 cm2 AV Regurg Peak Gr. 4.74 mmHg Velocity Ratio 0.91 Mitral Valve MV DT 165 (160-240 msec) Pulmonary Valve PV Vmax 0.90 (0.5-1.5 m/s) RVOT Vmax 0.82 m/s PV Peak Grad 3.2 mmHg RVOT Peak Gr. 2.7 mmHg PV Mean Aguila 0.65 m/s RVOT VTI 0.170 m PV Mean Grad 1.9 mmHg RVOT Mean Gr. 1.5 mmHg Tricuspid Valve RA Pressure 3.00 mmHg TR Vmax 2.31 m/s TV S' 0.14 m/s TR Peak Grad 21.2 mmHg RVSP (TR) 24.3 mmHg
== END 2024-10-27 00:29 ==
LOC: DI 00:10
PROVIDERS: PCP Nurse Practitioner Family; Visit Provider Internal Medicine Cardiovascular Disease
DX: I63.9 Cerebral infarction, unspecified (principal); I08.3 Combined rheumatic disorders of mitral, aortic and tricuspid valves
CPT/HCPCS: 93306

== ENCOUNTER 2024-11-07 07:12 | Outpatient (CLI) | payer MEDICARE, SELFPAY ==
--- NOTE | 2024-11-07 08:47 | W.CARDEVENT ---
Date of service: 11/07/24 Time of Service: 08:47 Cardiac Event Recorder Referring Provider:: Kerry Dumont Indications:: Stroke Cardiac Event Note: This is monitored. Patient was monitored for 7 days 16 hours Rhythm throughout is sinus. Average heart rate overall was 82. There was no bradycardia. Maximum heart rate 153 There were no significant ventricular dysrhythmias. There was no atrial fibrillation, no high-grade AV block, no pauses greater than 3 seconds. There were no apparent patient symptoms
== END 2024-11-07 07:13 | disposition home or self-care (01) ==
LOC: CARDOPNVT 07:12
PROVIDERS: PCP Nurse Practitioner Family; Visit Provider Internal Medicine Cardiovascular Disease
DX: I63.9 Cerebral infarction, unspecified (principal)
CPT/HCPCS: 93272

== ENCOUNTER → 2024-11-09 08:57 | Outpatient (BNVA) | payer MEDICARE, SELFPAY | PROVIDERS: PCP Nurse Practitioner Family; Referring Provider Nurse Practitioner Family; Visit Provider Nurse Practitioner Adult Health | DX: G31.84 Mild cognitive impairment of uncertain or unknown etiology; Z86.73 Personal history of transient ischemic attack (TIA), and cerebral infarction without residual deficits | CPT/HCPCS: 99215 ==

== ENCOUNTER 2024-11-23 09:59 | Outpatient (CLI) | payer MEDICARE, SELFPAY | END 2024-11-23 10:00 | disposition home or self-care (01) | PROVIDERS: PCP Nurse Practitioner Family; Referring Provider Nurse Practitioner Adult Health; Visit Provider Nurse Practitioner Adult Health | DX: I63.9 Cerebral infarction, unspecified (principal) | CPT/HCPCS: 93246 ==

== ENCOUNTER 2024-12-11 02:12 | Outpatient (CLI) | payer MEDICARE, SELFPAY ==
[2024-12-11 12:42] LABS: Anion Gap 7.2 mmol/L (3-11); BUN 13 mg/dL (7-18); CO2 31.8 mmol/L (21.0-32.0); CREATININE 0.7 mg/dL (0.55-1.02); Calcium 9.9 mg/dL (8.5-10.1); Calculated LDL 199 mg/dL (<100); Chloride 98 mmol/L (98-107); Cholesterol 281 mg/dL (<200); Estimated GFR 95.92 (mL/min/1.73m2); Glucose 106 mg/dL (74-106); HDL Cholesterol 59 mg/dL (>or=50); Potassium 4.2 mmol/L (3.5-5.1); Sodium 137 mmol/L (136-145); Triglyceride 118 mg/dL (<150)
== END 2024-12-11 02:13 | disposition home or self-care (01) ==
LOC: LOS 02:13
PROVIDERS: PCP Nurse Practitioner Family; Visit Provider Nurse Practitioner Family
DX: E78.5 Hyperlipidemia, unspecified (principal); E87.1 Hypo-osmolality and hyponatremia
CPT/HCPCS: 36415; 80048; 80061

== ENCOUNTER 2024-12-19 08:01 | Outpatient (CLI) | payer MEDICARE, SELFPAY ==
--- NOTE | 2024-12-19 11:55 | W.CARDEVENT ---
Date of service: 12/19/24 Time of Service: 11:56 Cardiac Event Recorder Referring Provider:: Kerry Dumont Indications:: Cerebral infarction Cardiac Event Note: This is a cardiac event monitor. Patient was monitored for 12 days and 22 hours Rhythm throughout was sinus with an average heart rate of 85. Minimum was 57, maximum 150 There were occasional ventricular ectopic beats. There were several ventricular triplets. There were rare atrial premature beats. There were very rare self-limited atrial runs There was no atrial fibrillation, no high-grade AV block, no pauses 3 seconds Symptoms were reported. The majority of these correlated to sinus rhythm, rarely to PVCs
== END 2024-12-19 08:02 | disposition home or self-care (01) ==
LOC: CARDOPNVT 08:01
PROVIDERS: PCP Nurse Practitioner Family; Visit Provider Internal Medicine Cardiovascular Disease
DX: I63.9 Cerebral infarction, unspecified (principal)
CPT/HCPCS: 93248

== ENCOUNTER 2025-04-11 08:02 | Emergency (ER) | payer MEDICARE, SELFPAY ==
[2025-04-11] VITALS (16 sets, daily range): BP systolic 149–212; BP diastolic 70–96; PULSE 73–111; RESP 11–21; TEMP 37.1; O2SAT 96–100
--- NOTE | 2025-04-11 08:00 | RT.EKG_ITS ---
APPROVED REPORT Exam: Resting ECG Reason for Exam: possible stroke Patient Location: E HR:92 bpm ECG Measurements Heart Rate 92 AXIS MA 154 P 65 QRSd 87 QRS 75 QT 337 T 62 QTc 419 Conclusion Sinus rhythm...normal P axis, V-rate 60- 99 No Occlusion NC
--- NOTE | 2025-04-11 08:14 | W.ED.GENAD ---
Discharge Plan Disposition Patient Disposition: Home Discharge Details Clinical Impression: Peripheral vertigo Primary Care Provider: Janis Thompson ED Provider: Devan Lopez Home Meds and New Rx's Prescriptions: New meclizine 25 mg tablet 25 mg PO BID PRNQty: 14 0RF Continued oxybutynin chloride 10 mg tablet extended release 24hr 10 mg PO DAILY Qty: 90 3RF Rx Instructions: take one tablet at night time latanoprost 0.005 % drops 1 drp ophthalmic (eye) QPM aspirin 81 mg tablet 81 mg PO DAILY calcium carbonate 600 mg calcium (1,500 mg) tablet 600 mg PO BID Qty: 180 3RF cholecalciferol (vitamin D3) [Vitamin D3] 50 mcg (2,000 unit) capsule 2,000 unit PO DAILY Qty: 90 3RF omeprazole 20 mg capsule,delayed release(DR/EC) 20 mg PO .QOD Qty: 90 3RF memantine 10 mg tablet 10 mg PO BID Qty: 180 3RF simvastatin 10 mg tablet 10 mg PO QHS Qty: 90 3RF venlafaxine 75 mg tablet 75 mg PO BID Qty: 180 3RF Rx Instructions: /take one tablet twice a day levothyroxine 25 mcg tablet 12.5 mcg PO DAILY Qty: 90 3RF Discharge Instructions Instructions: Vertigo ED Additional Instructions: You were seen here in the emergency department for your dizziness. Your MRI showed no sign of a stroke. As we discussed you likely have a nondangerous type of dizziness. Please return to the emergency department if you develop any weakness in your hands any numbness or tingling or if you begin vomiting do not stop. Otherwise please again try to take this medication to improve your symptoms. Please follow-up with your primary care provider next week. Discharge Data Discharge Date/Time-TO BE ENTERED AT DEPARTURE: 04/11/25 11:26 HPI General Date/Time Provider Initiated Documentation: 04/11/25 08:14. HPI Narrative: MDM Patient is overall well-appearing hypertensive mildly tachycardic 65-year-old female prior history of CVA and tobacco use with dizziness concerning for posterior circulation CVA for which patient will undergo CT angiogram of her head and neck prior to neurologic consult. No pain out proportion to suggest necrotizing soft tissue infection. Patient is not altered to suggest encephalitis. No rash nor fevers to suggest Lyme. No nuchal rigidity to suggest meningitis so no indication for lumbar puncture. No tonic-clonic activity to suggest seizures and no indication for EEG. No chest pain to suggest ACS however will obtain screening ECG. In the absence of chest pain my suspicion for aortic dissection is low. No headache nor chiropractic manipulation so doubt cervical arterial dissection. No dysuria nor frequency to suggest UTI. No generator exposure nor headache so doubt carbon monoxide toxicity. 10:18 AM CBC lacks anemia, thrombocytopenia, and leukocytosis. Reassuring initial troponin. CT angiogram no critical stenoses. No thrombosis. Basic metabolic panel with no ILEANA. Reassuring electrolytes. Chest x-ray with no acute cardiopulmonary process. I spoke with Dr. Santos from neurology who advised MRI. If MRI is positive we will load with clopidogrel 300 and treat with 75 mg daily for 21 days. If MRI is negative will discharge given echocardiogram performed earlier this year. Will plan on discussing modifiable risk factors. 10:56 AM MRI reassuring against any acute intracranial process. Repeat troponin reassuring. I met with the patient. She was still slightly dizzy. Patient and I discussed tobacco cessation. Will treat with diazepam. She is not having any ongoing nystagmus at the moment. I advised PCP follow-up. Her BP improved in the ED Diagnostic interpretations performed by me: Per my independent interpretation chest x-ray shows: No acute cardiopulmonary process Per my independent interpretation EKG shows: Narrow complex normal sinus rhythm at a rate of 92. Normal axis. Intervals within normal limits. No ST segment abnormalities. No acute injury pattern. No prior for comparison. HPI History of Present Illness This is a female with a history of high cholesterol presenting with dizziness. She is accompanied by her . She experienced a severe episode of dizziness upon awakening at approximately 7 AM, which has persisted since then. She reports a sensation of palpitations but does not have any weakness in her arms or legs, speech difficulties, recent falls or head injuries, chest pain, dysuria, abdominal pain, vomiting, or nausea. She describes a constant sensation of the room spinning, which is not influenced by head movements. She also reports no headaches. She recalls a similar episode of dizziness in the past, which resolved spontaneously. 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 The patient smokes cigarettes but does not consume alcohol. Exam General: Well-appearing in no acute distress speaking in complete sentences. Head: Normocephalic, atraumatic. Eye: Extraocular eye movements intact. No conjunctival injection. No scleral icterus. Left-sided nystagmus. Ear, nose, mouth, throat: Grossly normal inspection. Normal voice, handling secretions normally. Neck: Trachea midline. Cardiovascular: Well-perfused distal extremities. Regular rate and rhythm. Respiratory: Nonlabored respiration. Clear lungs bilaterally. Gastrointestinal: Nondistended abdomen. Soft. Nontender. Musculoskeletal: No edema. Moving all 4 extremities spontaneously. Skin: Normal for age and race, grossly normal temperature and turgor. No acute rash. Neurologic: Alert and appropriate, no apparent acute deficits. Left-sided fatigable nystagmus cranial nerves II through XII intact grossly. Romberg deferred. 5 out of 5 bilateral upper and lower extremity strength. Psychiatric: Mood and manner are appropriate. Grooming and personal hygiene are appropriate. Related Data Home Medications Medication Instructions Recorded Confirmed calcium carbonate 600 mg PO BID #180 tab-caps 10/19/23 04/11/25 cholecalciferol (vitamin D3) 50 2,000 unit PO DAILY #90 tab-caps 10/19/23 04/11/25 mcg (2,000 unit) capsule (Vitamin D3) oxybutynin chloride 10 mg 10 mg PO DAILY #90 tabs 06/01/24 04/11/25 tablet,extended release 24 hr omeprazole 20 mg capsule,delayed 20 mg PO .QOD #90 caps 06/26/24 04/11/25 release latanoprost 0.005 % eye drops 1 drp ophthalmic (eye) QPM 08/08/24 04/11/25 aspirin 81 mg tablet 81 mg PO DAILY 11/09/24 04/11/25 memantine 10 mg tablet 10 mg PO BID #180 tabs 11/20/24 04/11/25 simvastatin 10 mg tablet 10 mg PO QHS #90 tabs 12/12/24 04/11/25 venlafaxine 75 mg tablet 75 mg PO BID #180 tab-caps 12/20/24 04/11/25 levothyroxine 25 mcg tablet 12.5 mcg (1/2 x 25 mcg) PO DAILY 12/28/24 04/11/25 #90 tab-caps meclizine 25 mg tablet 25 mg PO BID PRN #14 tabs 04/11/25 Previous Rx's Medication Instructions Recorded calcium carbonate 600 mg PO BID #180 tab-caps 10/19/23 cholecalciferol (vitamin D3) 50 2,000 unit PO DAILY #90 tab-caps 10/19/23 mcg (2,000 unit) capsule (Vitamin D3) oxybutynin chloride 10 mg 10 mg PO DAILY #90 tabs 06/01/24 tablet,extended release 24 hr omeprazole 20 mg capsule,delayed 20 mg PO .QOD #90 caps 06/26/24 release memantine 10 mg tablet 10 mg PO BID #180 tabs 11/20/24 simvastatin 10 mg tablet 10 mg PO QHS #90 tabs 12/12/24 venlafaxine 75 mg tablet 75 mg PO BID #180 tab-caps 12/20/24 levothyroxine 25 mcg tablet 12.5 mcg (1/2 x 25 mcg) PO DAILY 12/28/24 #90 tab-caps meclizine 25 mg tablet 25 mg PO BID PRN #14 tabs 04/11/25 Allergies Allergy/AdvReac Type Severity Reaction Status Date / Time atorvastatin AdvReac Intermediate MYALGIAS Verified 04/11/25 08:09 pravastatin AdvReac Intermediate MYALGIAS Verified 04/11/25 08:09 simvastatin AdvReac Intermediate MYALGIAS Verified 04/11/25 08:09 General Stated Complaint: CVA/TIA JAZLYN: 2 Course Vital Signs Vital signs: Vital Signs Temperature 37.1 C 04/11/25 08:06 Pulse 110 H 04/11/25 08:06 Respiratory Rate 18 04/11/25 08:06 Blood Pressure 212/90 H 04/11/25 08:06 Pulse Oximetry 99 04/11/25 08:06 Temperature 37.1 C 04/11/25 08:06 Temperature Source Oral 04/11/25 08:06 Pulse 110 H 04/11/25 08:06 Respiratory Rate 18 04/11/25 08:06 Blood Pressure 212/90 H 04/11/25 08:06 Blood Pressure Position Sitting 04/11/25 08:06 Pulse Oximetry 99 04/11/25 08:06 Oxygen Delivery Method Room Air 04/11/25 08:06 Oxygen Flow Rate 0 04/11/25 08:06 Pain Level 0 04/11/25 08:06 PFSH All Active Problems (Updated 04/11/25 @ 11:02 by Devan Lopez MD) Peripheral vertigo (Acute) Mild cognitive impairment (Acute) Stroke (Chronic) Memory changes (Acute) Noticed worsening memory since 2021 after having COVID. Impacted cerumen, bilateral (Acute) Multinodular thyroid (Acute) Screen for colon cancer (Acute) Skin lesion of back (Acute) Dupuytren's contracture (Acute 01/07/15) Polyp of colon (Acute 01/13/13) Smoker (Acute) CAP (community acquired pneumonia) (Acute) VAP (ventilator-associated pneumonia) (Acute) Constipation (Acute) Acid reflux (Chronic) Tachycardia (Acute) Hyponatremia (Acute) Knee pain (Acute) mod.DJD of right knee Hypothyroidism (Acute 10/18/12) post partial thyroidectomy Hyperlipidemia (Acute 10/18/12) Depressive disorder (Acute) Anxiety (Acute) Allergic rhinitis (Acute) Medical History Hyperlipidemia Hypothyroidism Osteoarthritis of knees, bilateral Allergic rhinitis Depression Anxiety Surgical History History of colonoscopy (~02/2023) with Mac.. polup removed Status post total right knee replacement (09/30/21) S/P total knee arthroplasty Trigger Finger release left Thyroid PARTIAL Colonoscopy - IV Sedation (01/13/13) 2002; 2007; 01/13/13 DR. Ramon HARP;RECTAL POLYP Arthroscopy (~08/2014) RIGHT HAND Family History Mother Essential hypertension Hyperlipidemia Stroke Colon cancer Father Diabetes Essential hypertension Heart disease Hyperlipidemia Neoplasm BRAIN Brain cancer Maternal Grandfather Heart disease Paternal Grandfather No problems noted. Maternal Grandmother Diabetes Hyperlipidemia Paternal Grandmother No problems noted. Brother No problems noted. Son No problems noted. Daughter No problems noted. Daughter No problems noted. Son No problems noted. Social History Smoking/Tobacco Use Status: Current every day Tobacco Type: cigarettes Tobacco: How many years used: 40 Quit status: has quit before Second Hand Exposure: Yes Smoking risk assessment performed?: Yes Alcohol Intake: current Alcohol Intake frequency: holidays/special occasions only Alcohol type: beer Drug use: Never Substance use type: does not use Adopted: No Caregiver/Support person: No Foster care: No Household members: spouse Housing: house Number of Children: 4 number of grandchildren: 6 Communication Needs: None and Corrective Lenses Education Level: high school Do you need help understanding health information?: Rarely current occupation: Retired Pets and animals: No Sexually active: Yes Do you think of yourself as: straight/heterosexual Current gender identity: female What is your relationship status?: How often do you talk on the phone with friends or family?: twice per week How often do you attend episcopal or yazdanism services?: decline to answer Do you belong to any clubs or organized social groups?: no Panel score (0-1 are the most socially isolated patients): 1 What type of physical activity do you participate in: none Ericka/Zoroastrianism: Muslim Special ericka needs: No Agree to transfusion: Yes Seatbelt use: always Drive intox or ride w/intox transfer driver: No Working smoke detector in home: Yes Firearms in home: Yes Firearms unloaded and locked: Yes Do you feel safe at home: Yes Do you feel safe in your relationship?: Yes Victim of physical abuse: No Victim of emotional abuse: No Victim of sexual abuse: No
--- NOTE | 2025-04-11 08:15 | DI.RAD_ITS ---
Exam(s) XR CHEST 1V IN DI DEPT EXAM: XR CHEST 1V IN DI DEPT CLINICAL HISTORY: Dizziness. TECHNIQUE: 2D digital imaging was performed. COMPARISON: CR,XR XR CHEST 2V PA LATERAL from 04/10/2024 FINDINGS: Single AP portable view. Heart size is upper normal. The mediastinum is not widened. Lungs are clear. No infiltrates nor obvious pleural effusions. IMPRESSION: No acute pulmonary findings on this single AP portable view of the chest. DATA REPOSITORY: RADIATION DOSE DELIVERED:
[2025-04-11] MEDS: Normal Saline Flush 10 ML SYR IVP (08:52)
[2025-04-11] MEDS: Omnipaque 350 MG/ML 100 ML BTL IJ (08:52)
[2025-04-11] MEDS: Normal Saline - Diluent 50 ML VIAL IJ (08:52)
[2025-04-11 08:57] LABS: Abs Immature Grans 0.03 10^3/uL (0.0-0.06); HCT 43.3 % (36.0-46.0); HGB 14.7 g/dL (11.2-15.7); Immature Grans % 0.4 %; MCH 30.4 pg (27.0-33.0); MCHC 33.9 % (32.0-36.0); MCV 90 fL (80-95); MPV 9.0 fL (8.0-11.0); Platelet Count 316 10^3/uL (130-400); RBC 4.84 10^6/uL (3.93-5.22); RDW 12.2 % (11.7-14.6); RDW-SD 40.4 fL; WBC 8.44 10^3/uL (4.4-10.8)
--- NOTE | 2025-04-11 09:10 | DI.CT_ITS ---
Exam(s) CT BRAIN NECK CTA EXAM: CT BRAIN NECK CTA CLINICAL HISTORY: Dizziness. TECHNIQUE: Imaging Protocol: Axial CT angiography was performed with multi- slice acquisition and multi-planar and/or 3D reconstructions. CONTRAST MATERIAL: Intravenous: Omnipaque 350 Contrast volume:structured data in ml COMPARISON: CT CT HEAD WO from 10/07/2018 FINDINGS: CTA Neck W: Aortic arch anatomy: Aortic arch exhibits bovine configuration. There is no evidence of significant stenosis of the great vessels at their origins from the aortic arch. No intimal flap evident. Anterior circulation: Both common carotid arteries ascend with normal luminal diameters. At the level the carotid bulbs and proximal internal carotid arteries there is minimal plaque without hemodynamically significant stenosis evident on either side.. There is mild calcified plaque on the medial wall of the right carotid bulb with less than 10 percent stenosis. There is no plaque on the left side. No significant stenosis on either side and also no evidence of dissection of the carotid arteries in the neck. Posterior circulation: Both vertebral arteries originate in conventional fashion off of the subclavian arteries and there is no obvious stenosis at the origin of the vertebral arteries. The left vertebral artery is dominant and ascends with a luminal diameter of 3.7 mm within the foramen transversarium. The right vertebral artery ascends with luminal diameter of 2.5 mm. There is no evidence of thrombosis nor dissection of the vertebral arteries. Both vertebral arteries contribute to the formation of the basilar artery at the skull base. CTA Brain W: Anterior circulation: Both internal carotid arteries are patent in the skull base-carotid canals as well as within the cavernous sinuses. The supraclinoid aspects of the ICAs are patent. Both A1 segments are patent as are the anterior cerebral arteries and there is no evidence of aneurysm at the level of the anterior communicating artery. Both middle cerebral arteries are patent with no evidence of significant stenosis nor intraluminal thrombus. There also no aneurysms of these vessels. Posterior circulation: Basilar artery ascends with normal luminal diameter and no significant stenosis. Superiorly it gives off superior cerebellar arteries and above this level terminates as patent bilateral posterior cerebral arteries. There is a the posterior communicating artery evident on both sides of the [id number]. There is no evidence of aneurysm at the tip of the basilar artery nor elsewhere in the [id number]. CT BRAIN: There is no evidence of intracranial hemorrhage, mass effect, or shift of midline structures. There are no extra-axial fluid collections. Ventricles are not enlarged or shifted. There are no ring enhancing lesions in the brain and no abnormal meningeal enhancement. IMPRESSION: 1. Patent carotid arteries in the neck. No hemodynamically significant stenosis. 2. Patent vertebral arteries. The left vertebral artery is dominant. No evidence of vertebral artery thrombosis nor dissection. 3. Patent intracranial arteries. No aneurysms 4. No acute intracranial findings. If clinically indicated follow-up MRI can be performed. Report called by myself to ER provider 04/11/2025 at 9:23 a.m. RADIATION DOSE DELIVERED: 2,087.89mGy.cm Total DLP DATA REPOSITORY: All CT scans at this facility are submitted to the National Radiology Data Registry (NRDR) Dose Index Registry (DIR) with the [employer] (ACR). RADIATION OPTIMIZATION: All CT scans at this facility use at least one of these dose optimization techniques: automated exposure control; mA and/or kV adjustment per patient size (includes targeted exams where dose is matched to clinical indication); or iterative reconstruction.
[2025-04-11 09:18] LABS: Anion Gap 6.7 mmol/L (3-11); BUN 10 mg/dL (7-18); CO2 33.3 mmol/L (21.0-32.0); Calcium 10.1 mg/dL (8.5-10.1); Chloride 98 mmol/L (98-107); Glucose 98 mg/dL (74-106); Potassium 4.7 mmol/L (3.5-5.1); Sodium 138 mmol/L (136-145); Troponin I 4 ng/L (<or=51)
--- NOTE | 2025-04-11 09:45 | DI.MRI_ITS ---
Exam(s) MR BRAIN WO EXAM: MR BRAIN WO CLINICAL HISTORY: dizziness TECHNIQUE: Multiplanar multisequence MRI of the brain was performed. COMPARISON: MR MR ANGIO BRAIN WO from 10/13/2024 FINDINGS: CEREBRAL PARENCHYMA: There is no evidence of intracranial hemorrhage, mass effect, or shift of midline structures. There are no extra-axial fluid collections. Ventricles are not enlarged or shifted. There is no significant focal signal abnormality in the cerebellar hemispheres nor within the mely, midbrain, and thalami. There are few tiny FLAIR bright foci of nonspecific white matter signal abnormality bilaterally. These are not associated with hemorrhage, surrounding edema, nor restricted diffusion. There is no significant focal signal abnormality evident on diffusion imaging to suggest acute ischemic event. PITUITARY GLAND: No mass nor parasellar abnormality. No obvious abnormality in the cavernous sinuses. FLOW VOIDS: The expected flow void are noted. No evidence of obvious aneurysm nor obvious vascular malformation. PARANASAL SINUSES: The visualized paranasal sinuses appear unremarkable. No obvious finding ORBITS: No obvious findings. IMPRESSION: There are few small nonspecific white matter FLAIR bright foci of signal abnormality which are not associated with hemorrhage, surrounding edema, nor restricted diffusion. There is no evidence of acute ischemic event. No evidence of hemorrhage. Report called by myself to ER physician 04/11/2025 at 10:56 a.m. DATA REPOSITORY:
[2025-04-11] MEDS: Meclizine 25 MG TAB PO (09:59)
[2025-04-11 10:51] LABS: Troponin I 5 ng/L (<or=51)
[2025-04-11] MEDS: diazePAM 5 MG TAB PO (11:08)
== END 2025-04-11 11:26 | disposition home or self-care (01) ==
PROVIDERS: Emergency Provider Emergency Medicine; PCP Nurse Practitioner Family
DX: R42 Dizziness and giddiness (principal)
CPT/HCPCS: 99284; 99285; 70496; 70498; 80048; 93005; 70551; 71045; 84484; 85025; 93010; J3490

== ENCOUNTER → 2025-04-30 13:54 | Outpatient (BNVA) | payer MEDICARE, SELFPAY | PROVIDERS: PCP Nurse Practitioner Family; Referring Provider Nurse Practitioner Family; Visit Provider Nurse Practitioner Adult Health | CPT/HCPCS: 99213 ==